=== PATIENT | male | born 1955 | race Caucasian/White ===

== ENCOUNTER 2024-05-25 10:00 | Outpatient (CLI) | payer MEDICARE, BC, SELFPAY | END 2024-05-25 10:01 | disposition home or self-care (01) | LOC: AMB 05-28 01:16 | PROVIDERS: PCP Surgery; Visit Provider Emergency Medicine | DX: R07.89 Other chest pain (principal) | CPT/HCPCS: A0425; A0427 ==

== ENCOUNTER 2024-05-25 10:31 | Inpatient (IN) | payer MEDICARE, BC, SELFPAY ==
[2024-05-25] VITALS (23 sets, daily range): BP systolic 91–115; BP diastolic 60–79; PULSE 70–107; RESP 18–24; TEMP 36.5–38.2; O2SAT 85–98; BMI 31.9; BMI 31.4
--- NOTE | 2024-05-25 10:44 | ED_ITS ---
HPI - General Adult General Date Seen: 05/25/24 Chief complaint: Shortness of Breath/Dyspnea Stated complaint: Fever, chills Time Seen by Provider: 05/25/24 10:43 History of Present Illness HPI narrative: 69-year-old male presenting to the ER today by EMS. 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 Rhythm this morning woke up feeling short of breath and feeling chilled. Her he had a temperature of 101?. She he took 4 baby aspirin prior to arrival. He he was feeling short of breath so his turned on the heater but it did not help. Therefore his family called 911. Sats were 88% on room air and so he was placed on 4 L nasal cannula with improvement in oxygen sats. Blood glucose per EMS was 104. History from the patient and his is similar. He was basically normal lately. He does have some chronic shortness of breath from COPD and uses a controller inhaler twice a day. He has a rescue inhaler (albuterol) that he rarely uses. He does smoke. He has not been having any new shortness of breath or new cough lately. He was a bit constipated yesterday so took a Dulcolax. He is not having any abdominal pain. He woke at about 5:00 a.m. this morning and had significant chills despite having the covers. He had his turned up the heat and house temperature came up to 77 but he was still very chilled and shaking. He was able to get out of bed. He was sitting in his computer chair but was bent over, chilled, and shaking. He was feeling very weak. He is also more short of breath this morning. He is not really coughing. No nausea. No chest pain. No abdominal pain. Urination has been normal. No rash. No known sick exposures After the patient's chest x-ray is obtained we discussed the abnormal findings that he recalls that he had ?mac? that he follows with for years with an infectious disease doctor through the [facility]. Had been on some antibiotics for a couple of years but they were not helping so he stopped them several years ago. In records from the [facility] care link his primary care provider is Dr. reyes at the [facility] system. Notes indicate that he had a pulmonary nodule with MAC infection. Also that he has a history of peripheral artery disease with known abdominal aortic aneurysm. Had been following with vascular surgery to survey all this but stopped a couple of years ago. Related Data Home Medications ?Medication ?Instructions ?Recorded ?Confirmed albuterol sulfate 90 mcg/actuation inhalation 05/25/24 aerosol inhaler aspirin 05/25/24 budesonide-formoterol HFA 160 inhalation 05/25/24 mcg-4.5 mcg/actuation aerosol inhaler duloxetine 30 mg capsule,delayed 30 mg PO DAILY 05/25/24 05/25/24 release duloxetine 60 mg capsule,delayed 60 mg PO DAILY 05/25/24 05/25/24 release losartan 50 mg-hydrochlorothiazide 1 tab PO DAILY 05/25/24 05/25/24 12.5 mg tablet metoprolol succinate 50 mg 50 mg PO DAILY 05/25/24 05/25/24 tablet,extended release 24 hr multivitamin 05/25/24 psyllium 05/25/24 rosuvastatin 5 mg tablet 5 mg PO DAILY 05/25/24 05/25/24 sumatriptan 05/25/24 Allergies Allergy/AdvReac Type Severity Reaction Status Date / Time pregabalin [From Lyrica] Allergy Mild Verified 05/25/24 10:44 [facility] Social History Smoking Status: Current every day smoker What tobacco products do you use: cigarettes Non-prescribed substance use: denies use Exam Narrative: Exam Narrative: Constitutional: Appears well-developed and well-nourished. Alert. Conversant. Feels warm to the touch. Conversant. HENT: Head: Atraumatic. Nose: Nose normal. Mouth/Throat: Oral mucosa is clear and moist. no trismus. Pharynx normal. Tonsils symmetric. No tonsillar enlargement, erythema, or exudate. Eyes: Conjunctivae normal. EOM normal. Pupils equal, round, and reactive to light. No scleral icterus. Neck: Normal range of motion. Neck supple. No tracheal deviation present. No JVD Cardiovascular: Tachycardic, regular rhythm. No gallop. No friction rub. No murmur heard. Symmetric radial artery pulses Pulmonary/Chest: Effort normal. No stridor. No respiratory distress. Bibasilar rhonchi. Also bilateral subtle wheezes.. No tenderness. Abdominal: Soft. Bowel sounds normal. No distension. No mass. No tenderness. No rebound. No guarding. Long midline abdominal incision from distant history of retroperitoneal lymph node dissection (had testicular cancer but it turns out he did not have any lymphatic involvement) Musculoskeletal: RUE: Normal range of motion. No tenderness. No deformity LUE: Normal range of motion. No tenderness. No deformity RLE: Normal range of motion. Subtle trace chronic edema. No tenderness. No deformity LLE: Normal range of motion. Subtle trace chronic edema. No tenderness. No deformity Neurological: Alert and oriented to person, place, and time. Normal strength. CN II-VII intact. No sensory deficit. GCS eye subscore is 4. GCS verbal subscore is 5. GCS motor subscore is 6. Normal coordination Skin: Skin is warm and dry. No rash noted. No pallor. Normal capillary refill. Psychiatric: Normal mood. Normal affect. Const: Vital Signs, click to edit/add: Vital Signs - 24 hr 05/25/24 10:39 05/25/24 11:35 05/25/24 11:36 Temperature 100.8 F H Pulse Rate 104 H 104 H Pulse Rate [Pulse Oximeter] 107 H Respiratory Rate 20 Blood Pressure 94/71 Blood Pressure [Ri ght Upper Arm] 115/79 Pulse Oximetry 90 98 98 Oxygen Delivery Me thod Nasal Cannula Oxygen Flow Rate 2 05/25/24 11:45 05/25/24 12:00 05/25/24 12:02 Temperature Pulse Rate 107 H 103 H 103 H Pulse Rate [Pulse Oximeter] Respiratory Rate Blood Pressure 100/70 Blood Pressure [Ri ght Upper Arm] Pulse Oximetry 89 91 91 Oxygen Delivery Me thod Oxygen Flow Rate 05/25/24 12:15 05/25/24 12:29 05/25/24 12:30 Temperature Pulse Rate 101 H 99 Pulse Rate [Pulse Oximeter] Respiratory Rate Blood Pressure 91/68 96/66 Blood Pressure [Ri ght Upper Arm] Pulse Oximetry 91 91 Oxygen Delivery Me thod Oxygen Flow Rate 05/25/24 12:31 05/25/24 12:32 05/25/24 12:32 Temperature 98.7 F Pulse Rate 100 100 Pulse Rate [Pulse Oximeter] 99 Respiratory Rate 18 Blood Pressure 103/67 Blood Pressure [Ri ght Upper Arm] 96/66 Pulse Oximetry 91 91 91 Oxygen Delivery Me thod Room Air Oxygen Flow Rate 05/25/24 12:46 05/25/24 12:47 Temperature Pulse Rate 97 99 Pulse Rate [Pulse Oximeter] Respiratory Rate Blood Pressure 94/62 Blood Pressure [Ri ght Upper Arm] Pulse Oximetry 90 90 Oxygen Delivery Me thod Oxygen Flow Rate 2 2 Course Vital Signs Vital signs: Initial Vital Signs Respiratory Effort Normal, SOB at Exertion 05/25/24 10:38 Respiratory Depth Normal 05/25/24 10:38 Vital Signs Temperature 100.8 F H 05/25/24 10:39 Pulse Rate 107 H 05/25/24 10:39 Respiratory Rate 20 05/25/24 10:39 Blood Pressure 115/79 05/25/24 10:39 Pulse Oximetry 90 05/25/24 10:39 Oxygen Delivery Method Nasal Cannula 05/25/24 10:39 Temperature 98.7 F 05/25/24 12:32 Pulse Rate 99 05/25/24 12:47 Respiratory Rate 18 05/25/24 12:32 Blood Pressure 94/62 05/25/24 12:47 Pulse Oximetry 90 05/25/24 12:47 Oxygen Delivery Method Room Air 05/25/24 12:32 Oxygen Flow Rate 2 05/25/24 12:47 Medications Administered Medications: Discontinued Medications Generic Name Dose Route Start Last Admin Trade Name Raquel PRN Reason Stop Dose Admin Acetaminophen 1,000 mg 05/25/24 11:18 05/25/24 11:26 Acetaminophen 500 Mg Tablet PO 05/25/24 11:19 1,000 mg ONCE ONE Administration Albuterol/Ipratropium 1 neb 05/25/24 11:18 05/25/24 11:26 Iprat-Albut 0.5-2.5 Mg/3 Ml Neb IH 05/25/24 11:19 1 neb ONCE ONE Administration Prednisone 40 mg 05/25/24 10:56 05/25/24 11:26 Prednisone 20 Mg Tablet PO 05/25/24 10:57 40 mg ONCE ONE Administration Medical Decision Making [facility] Narrative Medical decision making narrative: 69-year-old male with a complex past history including COPD, ongoing tobacco use, history of MAC pulmonary infection, peripheral artery disease, of the abdomen aortic aneurysm, hypertension, dyslipidemia. He is brought to the ER this morning by EMS because he developed fever, chills, body aches, generalized weakness and shortness or breath at about 5:00 a.m. this morning. 1. Infectious disease. Does have fever and chills consistent with infection and has a fever of 100.8. With this he is tachycardic with pulse of 108 at triage. Therefore does meet criteria for SIRS and sepsis. We undertook an evaluation to determine the source of the infection. COVID/influenza are negative. Chest x- ray does show bilateral infiltrates that I think could suggest a acute community-acquired pneumonia. Also some abnormalities in the upper lobes that her to our which are of unclear significance but may relate to his prior chronic MAC infection. Labs show a white count of 18. Fortunately venous lactic is normal. Blood pressure remains in the normal range. No evidence for septic shock. Typically in this situation we would administer IV saline as a fluid bolus. However given current national shortage we were trying to conserve fluids as much as possible. Therefore we had the patient aggressively push p.o. fluids. Admitting hospitalist requested that I give him a bolus of D5 normal saline, of which we have an adequate supply. I think this is reasonable. Rocephin and Zithromax administered here in the ER. 2. Pulmonary. In addition to pneumonia, he also has some wheezing on his lung exam. Suspect this may be his COPD and possibly an acute exacerbation. Treated with 40 mg oral says prednisone and DuoNebs. Despite treatments he does remain hypoxic with sats in the high 80s on room air. He is doing well with 2 L nasal cannula. At this point not showing signs for respiratory distress or fatigue requiring BiPAP or endotracheal intubation. Mental status is normal and he is well appearing so I do not think he needs VBG or pCO2 measurement. 3. Cardiac. EKG shows sinus tachycardia with nonspecific changes. Screening troponin is undetectable. With a clear alternative explanation for shortness of breath I do not think he needs further troponin rule out. 4. Renal. Mild hyponatremia with a sodium 134. Other electrolytes normal. BUN 20 and creatinine 0.9. 5. Endocrine. Blood sugar normal. Lab Data Labs: Lab Results 05/25/24 Range/Units 11:11 WBC 18.96 H (4.50-11.00) K/uL RBC 5.16 (4.30-5.90) m/uL Hgb 17.4 (13.5-17.5) gm/dL Hct 50.8 (37.0-53.0) % MCV 98 (80-100) fL MCH 34 (26-34) pg MCHC 34 (32-36) gm/dL RDW Coeff of Yelena 13.3 (11.5-15.5) % Plt Count 180 (140-440) K/uL Neut % (Auto) 90.0 H (42.0-72.0) % Lymph % (Auto) 3.3 L (20-44) % [place] % (Auto) 6.0 (0.0-11.0) % Eos % (Auto) 0.1 (0.0-7.0) % Baso % (Auto) 0.3 (0.0-3.0) % Neut # (Auto) 17.10 H (1.7-7.0) K/uL Lymph # (Auto) 0.60 L (0.90-2.90) K/uL [place] # (Auto) 1.10 H (0.00-0.90) K/UL Eos # (Auto) 0.00 (0.00-0.50) K/uL Baso # (Auto) 0.10 (0.00-0.30) K/uL Abs Immat Gran (auto) 0.10 (0.00-0.30) K/uL Imm/Tot Granulo (auto) 0.3 % Sodium 134 L (135-149) mmol/L Potassium 3.8 (3.6-5.1) mmol/L Chloride 103 (96-114) mmol/L Carbon Dioxide 23 (20-32) mmol/L Anion Gap 8 (7-15) mEq/L BUN 20 (7-30) mg/dL Creatinine 0.9 (0.5-1.5) mg/dL Estimated Creat Clear 68.40 Estimated GFR 93 ml/min Glucose 111 (60-115) mg/dL Lactate 1.6 (0.5-1.9) mmol/L Calcium 9.5 (8.4-10.6) mg/dL SARS-CoV-2 (PCR) Negative SARS-CoV-2 (Negative) Influenza Type A (PCR) Negative PCR FLU A (Negative) Influenza Type B (PCR) Negative PCR FLU B (Negative) POC Troponin I 0.00 L (0.01-0.04) ng/ml Imaging Data Chest x-ray: Attestation: I have reviewed the pertinent imaging results. My impression: Right upper lobe opacity, possibly fluid in the minor fissure or an infiltrate. Left lower lobe pleural effusion. Possible left lower lobe infiltrate. Possible right lower lobe infiltrate. Radiologist's impression: FINDINGS: Severe underlying reticular opacities in both lungs. Irregular nodular and bandlike thickening along the medial right upper lobe. Favor pleural origin, probably with a large apical bulla. There is a 0.8 centimeter nodule in the right lower lobe. Small bilateral pleural effusions versus chronic pleural thickening. No pneumothorax. Heart size normal. Extensive surgical clips in the central upper abdomen/retroperitoneum. Large stool burden incidentally noted in the upper abdomen. No acute appearing osseous findings. IMPRESSION: Bilateral abnormal lungs and pleura. Details above. Comparison to available prior exams would be extremely helpful as many of the findings could be both acute or chronic. Infection, interstitial / smoking related lung disease, environmental exposures, and malignancy all should be considered. ECG Data Attestation: I personally reviewed and interpreted this ECG as follows: Interpretation: Sinus tachycardia Rate: 108 DE: 168 QRS axis: normal ST segment/T wave: Nonspeciffic T wave flattening. No ST segment elevation or depression. QTc: 555 Discharge Plan Discharge Clinical Impression: Pneumonia, Acute exacerbation of chronic obstructive pulmonary disease, Hypoxia Prescriptions: No Action metoprolol succinate 50 mg tablet extended release 24 hr 50 mg PO DAILY sumatriptan albuterol sulfate 90 mcg/actuation HFA aerosol inhaler inhalation losartan-hydrochlorothiazide 50-12.5 mg tablet 1 tab PO DAILY rosuvastatin 5 mg tablet 5 mg PO DAILY duloxetine 30 mg capsule,delayed release(DR/EC) 30 mg PO DAILY duloxetine 60 mg capsule,delayed release(DR/EC) 60 mg PO DAILY budesonide-formoterol 160-4.5 mcg/actuation HFA aerosol inhaler inhalation multivitamin psyllium aspirin Follow Up/Referrals: Jt Reyes MD [Primary Care Provider] -
--- NOTE | 2024-05-25 10:46 | CRLHL7_ITS ---
For Patients: As a result of the Cures Act, medical imaging exams and procedure reports are released immediately into your electronic medical record. You may view this report before your referring provider. If you have questions, please contact your health care provider. INDICATION: Short of breath and fever COMPARISON: None. TECHNIQUE: PA and lateral 2 view chest. FINDINGS: Severe underlying reticular opacities in both lungs. Irregular nodular and bandlike thickening along the medial right upper lobe. Favor pleural origin, probably with a large apical bulla. There is a 0.8 centimeter nodule in the right lower lobe. Small bilateral pleural effusions versus chronic pleural thickening. No pneumothorax. Heart size normal. Extensive surgical clips in the central upper abdomen/retroperitoneum. Large stool burden incidentally noted in the upper abdomen. No acute appearing osseous findings. IMPRESSION: Bilateral abnormal lungs and pleura. Details above. Comparison to available prior exams would be extremely helpful as many of the findings could be both acute or chronic. Infection, interstitial / smoking related lung disease, environmental exposures, and malignancy all should be considered. Dictated by Shantelle Wilson MD @ 05/25/2024 12:10:09 PM (Electronically Signed)
[2024-05-25 11:21] LABS: Lactate Sepsis w/Reflex* 1.6 mmol/L (0.5-1.9)
[2024-05-25 11:24] LABS: Basophils Percent Auto 0.3 % (0.0-3.0); Eosinophils Percent Auto 0.1 % (0.0-7.0); Hematocrit 50.8 % (37.0-53.0); Hemoglobin* 17.4 gm/dL (13.5-17.5); Immature Granulocytes Pct Auto 0.3 %; Lymphocytes Percent Auto 3.3 % (20-44); Mean Corpuscular HGB Conc 34 gm/dL (32-36); Mean Corpuscular Hemoglobin 34 pg (26-34); Mean Corpuscular Volume 98 fL (80-100); Platelet Count* 180 K/uL (140-440); RDW Coefficient of Variation % 13.3 % (11.5-15.5); Red Blood Count 5.16 m/uL (4.30-5.90); White Blood Count* 18.96 K/uL (4.50-11.00)
[2024-05-25] MEDS: ACETAMINOPHEN 500 MG TABLET 1000 MG PO ×2 (11:26→17:51)
[2024-05-25] MEDS: IPRAT-ALBUT 0.5-2.5 MG/3 ML NEB 1 NEB IH ×3 (11:26→21:10)
[2024-05-25] MEDS: predniSONE 20 MG TABLET 40 MG PO (11:26)
[2024-05-25 11:34] LABS: Slide Review Reflex No
[2024-05-25 11:56] LABS: Chloride* 103 mmol/L (96-114); Potassium* 3.8 mmol/L (3.6-5.1); Sodium* 134 mmol/L (135-149)
[2024-05-25 11:59] LABS: Anion Gap 8 mEq/L (7-15); Blood Urea Nitrogen* 20 mg/dL (7-30); Calcium* 9.5 mg/dL (8.4-10.6); Carbon Dioxide* 23 mmol/L (20-32); Creatinine* 0.9 mg/dL (0.5-1.5); Estimated Glomerular Filt Rate 93 ml/min; Glucose* 111 mg/dL (60-115)
[2024-05-25 12:01] LABS: PCR FLU A Negative PCR FLU A (Negative); PCR FLU B Negative PCR FLU B (Negative); SARS PCR* Negative SARS-CoV-2 (Negative)
[2024-05-25] MEDS: AZITHROMYCIN 250 MG TABLET 500 MG PO (13:03)
[2024-05-25] MEDS: cefTRIAXone 1 GM in 0.9 % SODIUM CHLORIDE Mini-bag 100 ML IVPB (13:04)
--- NOTE | 2024-05-25 13:18 | P.IMHP_ITS ---
Hospitalist- H&P: HPI History of Present Illness Date Seen: 05/25/24 Chief complaint: Fever, chills Narrative: Trevin Kate is a 69 year old male with significant past medical history including COPD, JIMY poorly managed, history of MAC not fully treated, pulmonary nodules, active 1.5-2 pack per day smoker, heart failure, hypertension, hyperlipidemia, CAD, history of cardiac arrest, migraine headaches, chronic neck pain, fibromyalgia is admitted to medical floor from the ED with sepsis in setting of suspected multilobar pneumonia. Patient reports awakening this morning with significantly increased shortness of breath. Denies new or worsening cough other than his chronic cough. [place] chilled this morning but did not take his temperature. Denies new or worsening chest pain. Has a chronic daily headache. Denies dizziness or lightheadedness. Was nauseous in the ambulance on the way over but this has resolved. Denies recent nausea or vomiting. In the ED, patient noted to be febrile, tachycardic, systolic blood pressures less than 100, O2 saturations 88-89% which is normal for him as of late. Started on IV ceftriaxone and azithromycin. Due to national shortage of IVF, did not receive fluids in the ED. Tobacco use 1.5-2 ppd. denies alcohol use for the past 40 years. Primary care provider is Dr. Stinson. Wishes to be DNR/DNI. Review of Systems Narrative: REVIEW OF SYSTEMS: Complete review of systems performed and negative unless otherwise stated in HPI or below. [facility] Medical History Cardiac arrest ?I46.9 - Cardiac arrest, cause unspecified (ICD-10) Pulmonary nodule ?R91.1 - Solitary pulmonary nodule (ICD-10) Peripheral arterial disease ?I73.9 - Peripheral vascular disease, unspecified (ICD-10) JIMY (obstructive sleep apnea) ?G47.33 - Obstructive sleep apnea (adult) (pediatric) (ICD-10) Thoracic back pain ?M54.6 - Pain in thoracic spine (ICD-10) Fibromyalgia ?M79.7 - Fibromyalgia (ICD-10) Migraine ?G43.909 - Migraine, unspecified, not intractable, without status migrainosus (ICD-10) Mycobacterium avium complex ?A31.0 - Pulmonary mycobacterial infection (ICD-10) Testicular cancer ?C62.90 - Malignant neoplasm of unspecified testis, unspecified whether descended or undescended (ICD-10) Tobacco abuse ?Z72.0 - Tobacco use (ICD-10) MDD (major depressive disorder) ?F32.9 - Major depressive disorder, single episode, unspecified (ICD-10) COPD (chronic obstructive pulmonary disease) ?J44.9 - Chronic obstructive pulmonary disease, unspecified (ICD-10) Heart failure with preserved ejection fraction ?I50.30 - Unspecified diastolic (congestive) heart failure (ICD-10) Abdominal aneurysm ?I71.40 - Abdominal aortic aneurysm, without rupture, unspecified (ICD-10) CAD (coronary artery disease) ?I25.10 - Atherosclerotic heart disease of [place] coronary artery without angina pectoris (ICD-10) Hypertension ?I10 - Essential (primary) hypertension (ICD-10) Hyperlipidemia ?E78.5 - Hyperlipidemia, unspecified (ICD-10) Social History Smoking Status: Current every day smoker What tobacco products do you use: cigarettes Non-prescribed substance use: denies use Meds Home Medications and Allergies Home Medications ?Medication ?Instructions ?Recorded ?Confirmed ?Type albuterol sulfate 90 mcg/actuation 1 - 2 puff inhalation Q4H PRN 05/25/24 05/25/24 History aerosol inhaler aspirin 81 mg tablet,delayed 81 mg PO DAILY 05/25/24 05/25/24 History release budesonide-formoterol HFA 160 2 puff inhalation BID 05/25/24 05/25/24 History mcg-4.5 mcg/actuation aerosol inhaler duloxetine 30 mg capsule,delayed 30 mg PO DAILY 05/25/24 05/25/24 History release duloxetine 60 mg capsule,delayed 60 mg PO DAILY 05/25/24 05/25/24 History release losartan 50 mg-hydrochlorothiazide 1 tab PO DAILY 05/25/24 05/25/24 History 12.5 mg tablet metoprolol succinate 50 mg 50 mg PO DAILY 05/25/24 05/25/24 History tablet,extended release 24 hr multivitamin (Daily Multi-Vitamin 1 tab PO DAILY 05/25/24 05/25/24 History tablet) psyllium 1 tbsp PO DAILY 05/25/24 05/25/24 History rosuvastatin 5 mg tablet 5 mg PO DAILY 05/25/24 05/25/24 History sumatriptan succinate 100 mg See Rx Instructions PO .COMPLEX 05/25/24 05/25/24 History tablet (Imitrex) Allergies Allergy/AdvReac Type Severity Reaction Status Date / Time pregabalin [From Lyrica] Allergy Mild Verified 05/25/24 10:44 Exam Narrative: Exam Narrative: PHYSICAL EXAM General: Pleasant, smiling, joking with staff, conversant, otherwise appears in NAD HEENT: Normocephalic, atraumatic, sclera white, EOMI, oral mucosa moist Cardiovascular: RRR, S1S2. No pitting edema Pulmonary: Diffusely diminished, currently no expiratory wheezes, no dyspnea on 1 L Abdominal: Soft, nondistended, NTTP Neurological: Alert, answering questions appropriately, cranial nerves intact, no focal findings Extremities: No gross joint deformity or swelling. AROMI. Neurovascularly intact Skin: Warm, dry. Const: Vital Signs, click to edit/add: Vital Signs - 24 hr 05/25/24 10:39 05/25/24 11:35 05/25/24 11:36 Temperature 100.8 F H Pulse Rate 104 H 104 H Pulse Rate [Pulse Oximeter] 107 H Respiratory Rate 20 Blood Pressure 94/71 Blood Pressure [Ri ght Upper Arm] 115/79 Pulse Oximetry 90 98 98 Oxygen Delivery Me thod Nasal Cannula Oxygen Flow Rate 2 05/25/24 11:45 05/25/24 12:00 05/25/24 12:02 Temperature Pulse Rate 107 H 103 H 103 H Pulse Rate [Pulse Oximeter] Respiratory Rate Blood Pressure 100/70 Blood Pressure [Ri ght Upper Arm] Pulse Oximetry 89 91 91 Oxygen Delivery Me thod Oxygen Flow Rate 05/25/24 12:15 05/25/24 12:29 05/25/24 12:30 Temperature Pulse Rate 101 H 99 Pulse Rate [Pulse Oximeter] Respiratory Rate Blood Pressure 91/68 96/66 Blood Pressure [Ri ght Upper Arm] Pulse Oximetry 91 91 Oxygen Delivery Me thod Oxygen Flow Rate 05/25/24 12:31 05/25/24 12:32 05/25/24 12:32 Temperature 98.7 F Pulse Rate 100 100 Pulse Rate [Pulse Oximeter] 99 Respiratory Rate 18 Blood Pressure 103/67 Blood Pressure [Ri ght Upper Arm] 96/66 Pulse Oximetry 91 91 91 Oxygen Delivery Me thod Room Air Oxygen Flow Rate 05/25/24 12:46 05/25/24 12:47 Temperature Pulse Rate 97 99 Pulse Rate [Pulse Oximeter] Respiratory Rate Blood Pressure 94/62 Blood Pressure [Ri ght Upper Arm] Pulse Oximetry 90 90 Oxygen Delivery Me thod Oxygen Flow Rate 2 2 Hospitalist - H&P: Result Labs Labs: Short CBC 05/25/24 Range/Units 11:11 WBC 18.96 H (4.50-11.00) K/uL Hgb 17.4 (13.5-17.5) gm/dL Hct 50.8 (37.0-53.0) % Plt Count 180 (140-440) K/uL BMP 05/25/24 11:11 Sodium 134 L Potassium 3.8 Chloride 103 Carbon Dioxide 23 BUN 20 Creatinine 0.9 Glucose 111 Calcium 9.5 ECG Attestation: I personally reviewed and interpreted this ECG as follows: Interpretation: Sinus tachycardia, ventricular rate 108, QTC 431 Imaging Chest x-ray: Attestation: I have reviewed the pertinent imaging results. Radiologist's impression: Severe underlying reticular opacities in both lungs. Irregular nodular and bandlike thickening along the medial right upper lobe. Favor pleural origin, probably with a large apical bulla. There is a 0.8 centimeter nodule in the right lower lobe. Small bilateral pleural effusions versus chronic pleural thickening. No pneumothorax. Heart size normal. Extensive surgical clips in the central upper abdomen/retroperitoneum. Large stool burden incidentally noted in the upper abdomen. No acute appearing osseous findings. IMPRESSION: Bilateral abnormal lungs and pleura. Details above. Comparison to available prior exams would be extremely helpful as many of the findings could be both acute or chronic. Infection, interstitial / smoking related lung disease, environmental exposures, and malignancy all should be considered. Assessment and Plan Assessment and plan (1) Sepsis: Problem comment: Fever 100.8?, tachycardic to 107, SBP 91-96, WBC 18.96, lactate 1.6 Multilobar community-acquired pneumonia Started on IV ceftriaxone and azithromycin 1 L D5 half-normal saline IVF in setting of nationwide shortage. Encourage oral electrolyte drinks BC pending, UA ordered Status: Acute (2) Acute hypoxic respiratory failure: Problem comment: ED reports oxygen saturation <88% per EMR, 89% in ED In setting of suspected community acquired pneumonia, history of COPD, unmanaged JIMY Continue oxygen supplementation, maintaining saturations 88-92%, weaning as able RT for pulmonary support Of note, EMR states patient checks his O2 sats at home with noted desaturations into the 80s with activity, normal at rest is 88% of late Status: Acute (3) Pneumonia: Problem comment: CXR shows severe underlying reticular opacities in both lungs, small bilateral pleural effusions versus chronic pleural thickening Continue ceftriaxone and azithromycin Procalcitonin, CRP, strep pneumo/Legionella ordered Consider further imaging with CT if new or worsening symptoms or no improvement History of cavitary MAC, followed by pulmonology, last visit 08/2021. Incomplete triple therapy in 2019 Known chronic pulmonary nodules Outpatient follow-up with PCP for further investigation of CXR findings is recommended Status: Acute (4) COPD (chronic obstructive pulmonary disease): Problem comment: In setting of active smoker, 1.5-2 ppd, poorly managed JIMY, noncompliant with CPAP Normal O2 saturation for him lately 88% at rest DuoNebs q.i.d., albuterol nebs p.r.n., continue home inhalers Oxygen supplementation, 88-92% Prednisone 40 mg daily Continue ceftriaxone and azithromycin RT for pulmonary support, IS Status: Acute (5) Heart failure with preserved ejection fraction: Problem comment: Echocardiogram 10/2018, Final Impressions: 1. Technically limited exam. 2. Entire anterior septum and mid septum segment are abnormal. LV EF = 40-45% 3. Moderately enlarged right atrium. 4. Grade 1 pattern of LV diastolic filling. 5. Right ventricular cavity size is moderately enlarged, global systolic RV function is normal. 6. The ascending aorta is dilated with a maximal diameter of 4.4 cm. 7. The aortic sinus is dilated with a maximal diameter of 4.3 cm. This EF of 40-45% does not fit criteria of preserved ejection fraction as documented in his EMR BNP ordered Consider repeat echo if new or worsening symptoms or no improvement Status: Acute (6) Hyperlipidemia: Problem comment: Continue statin Status: Acute (7) Hypertension: Problem comment: Continue home medications At home, checks his pulse and oxygen level regularly, desaturates into 80s with activity Status: Acute (8) CAD (coronary artery disease): Problem comment: Continue ASA, antihypertensives, statin Status: Acute (9) MDD (major depressive disorder): Problem comment: per EMR, History of depression and anxiety that is been poorly treated in the past. He is currently on 90 mg of Cymbalta daily. He has not wanted to do referral to psychology or see a psychiatrist. He also has not wanted to make any other changes to his medication. That has seemed to help a little but not very much. Continue duloxetine Status: Acute (10) Tobacco abuse: Problem comment: 1.5-2 ppd Has not been interested in quitting despite encouragement Status: Acute Total Time Spent Total Time Spent: Total time spent caring for the patient today was 75 minutes. This includes time spent for the visit reviewing the chart, time spent during the visit, time spent after the visit and documentation and planning in coordination of care.
[2024-05-25 14:08] LABS: Magnesium* 2.1 mg/dL (1.5-2.6)
[2024-05-25] MEDS: 5 % DEX/0.45 SOD CHL+KCL20 mEq 1,000 ML 125 ML IV (14:21)
--- NOTE | 2024-05-25 14:23 | RESP.RT ---
Respiratory assessment. Patient on 2 lpm nasal cannula with spO2 90-92%. RR 20, BS bilateral upper and lower lobes with expiratory wheezing. Instructed on use of Incentive Spirometer. Patient achieving 2500 ml.
[2024-05-25 14:25] LABS: Procalcitonin* 0.13 ng/mL (<0.50)
[2024-05-25 15:36] LABS: NT Pro B Type NatriureticPept* 644 pg/mL
[2024-05-25] MEDS: NICOTINE 21 MG PATCH 1 PATCH TRANSDERMA (16:12)
--- NOTE | 2024-05-25 19:07 | PC.NURSE ---
End of shift: patient alert and oriented x4. VSS, SOB w/exertion, 2.5 L NC sating at 93%. Patient tolerating a reg. diet. Patient has a 20G IV in L, AC running D5%Sod Chl+KCL.
[2024-05-25] MEDS: SODIUM CHLORIDE 0.9 % (FLUSH) 10 ML SYRINGE 5 ML IVF (21:10)
[2024-05-25] MEDS: ENOXAPARIN 30 MG/0.3ML INJ SUBCUT (21:10)
[2024-05-25] MEDS: ROSUVASTATIN CALCIUM 10 MG TABLET 5 MG PO (21:10)
[2024-05-26] VITALS (10 sets, daily range): BP systolic 97–121; BP diastolic 62–77; PULSE 67–89; RESP 20–24; TEMP 36.2–37; O2SAT 87–89
[2024-05-26] MEDS: ACETAMINOPHEN 500 MG TABLET 1000 MG PO ×2 (02:33→21:12)
--- NOTE | 2024-05-26 06:07 | PC.NURSE ---
[id number] Pt slept well during night. On RA since approx 2100 05/25/24, maintaining >88% while awake, dips to 85-89% while sleeping. intermittent productive cough, thick yellow phlegm, pt states this is his baseline. generalized pain during the night due to uncomfortable bed prn tylenol administered with relief. acknowledged SOB at rest but when asked if its worse, the same or better then baseline pt replied same. SOB with activity.
[2024-05-26 06:33] LABS: Hematocrit 48.1 % (37.0-53.0); Hemoglobin* 16.2 gm/dL (13.5-17.5); Mean Corpuscular HGB Conc 34 gm/dL (32-36); Mean Corpuscular Hemoglobin 34 pg (26-34); Mean Corpuscular Volume 100 fL (80-100); Platelet Count* 160 K/uL (140-440); Red Blood Count 4.79 m/uL (4.30-5.90); White Blood Count* 12.79 K/uL (4.50-11.00)
[2024-05-26 06:34] LABS: Slide Review Reflex No
[2024-05-26 06:57] LABS: Chloride* 104 mmol/L (96-114)
[2024-05-26 06:58] LABS: Potassium* 3.6 mmol/L (3.6-5.1); Sodium* 136 mmol/L (135-149)
[2024-05-26 07:00] LABS: Creatinine* 0.9 mg/dL (0.5-1.5); Estimated Glomerular Filt Rate 93 ml/min
[2024-05-26 07:01] LABS: Anion Gap 6 mEq/L (7-15); Blood Urea Nitrogen* 28 mg/dL (7-30); Carbon Dioxide* 26 mmol/L (20-32); Glucose* 111 mg/dL (60-115)
[2024-05-26 07:02] LABS: Calcium* 8.8 mg/dL (8.4-10.6)
[2024-05-26 07:04] LABS: C Reactive Protein* 8.9 mg/dL (0.5-1.0)
--- NOTE | 2024-05-26 08:11 | CRLHL7_ITS ---
For Patients: As a result of the Century Cures Act, medical imaging exams and procedure reports are released immediately into your electronic medical record. You may view this report before your referring provider. If you have questions, please contact your health care provider. Indication: Pulmonary nodules, new pneumonia, known history of MAC infection and cavitary mass in the right upper lobe Technique: Volumetric multidetector CT images of the chest were obtained after the administration of IV contrast. 75 cc Isovue 370 low osmolar intravenous contrast Comparison: None available. Findings: The thoracic inlet and thyroid gland are unremarkable. The thoracic aorta is nonaneurysmal. There is no central filling defect to suggest pulmonary embolism. There are calcified mediastinal and hilar lymph nodes. There is no axillary adenopathy. There is mild to moderate central bronchial thickening. There is moderate peripherally calcified cavitary lesion within the medial right lung apex consistent with history of known atypical mycobacterial infection with moderate chronic atelectasis and pleural calcification. There is moderate associated emphysematous change with peripheral honeycombing in the lingula inferior left upper and left lower lobes. There is basilar atelectasis and parenchymal scarring. Developing edema and/or infiltrate within the central right lung base may be difficult to exclude. Multiple calcified pulmonary nodules are seen within the predominantly right greater than left elliot thoraces commensurate with history of MAC. The partially visualized upper abdominal viscera are within normal limits. The thoracic vertebral body heights remain intact alignment without significant degenerative change or acute osseous abnormality. Impression: Demonstration of extensive sequela of prior atypical mycobacterial infection consistent with history of known MAC with cavitary lesion in the right upper lobe, scattered calcified pulmonary nodules, pleural thickening and parenchymal scarring predominantly within the right greater than left lower greater than upper lobes with questionable mild interlobular septal prominence and ground-glass in the right lung base likely representing chronic changes a subtle acute infiltrate may be difficult to exclude. No evidence of pulmonary embolus. No evidence of obvious acute typical consolidation. Please note that all CT scans at this facility use dose modulation, iterative reconstruction, and/or weight-based dosing when appropriate to reduce radiation dose to as low as reasonably achievable. Dictated by Deni Muniz MD @ 05/26/2024 9:36:45 AM (Electronically Signed)
[2024-05-26] MEDS: cefTRIAXone 1 GM in 0.9 % SODIUM CHLORIDE Mini-bag 100 ML IVPB (09:18)
[2024-05-26] MEDS: METOPROLOL SUCCINATE (XL) 50 MG TAB PO (09:19)
[2024-05-26] MEDS: ASPIRIN 81 MG TABLET EC PO (09:19)
[2024-05-26] MEDS: LOSARTAN POTASSIUM 50 MG TABLET PO (09:19)
[2024-05-26] MEDS: hydroCHLOROthiazide 12.5 MG CAPSULE PO (09:19)
[2024-05-26] MEDS: predniSONE 20 MG TABLET 40 MG PO (09:19)
[2024-05-26] MEDS: DULOXETINE 30 MG CAPSULE DR 90 MG PO (09:19)
[2024-05-26] MEDS: IPRAT-ALBUT 0.5-2.5 MG/3 ML NEB 1 NEB IH ×2 (09:20→21:30)
[2024-05-26] MEDS: SODIUM CHLORIDE 0.9 % (FLUSH) 10 ML SYRINGE 5 ML IVF ×2 (09:20→21:27)
[2024-05-26] MEDS: AZITHROMYCIN 250 MG TABLET 500 MG PO (09:43)
[2024-05-26] MEDS: Budesonide-Formoterol 160-4.5 mcg/actuation HFA aerosol inhaler IH ×2 (12:18→21:21)
--- NOTE | 2024-05-26 13:28 | P.IMPN_ITS ---
Progress Note: A&P Assessment and plan (1) Sepsis: Problem details: rec'd oral and IV fluid, we chose 1L of D5 1/2NS, due to national shortage of IVF. tachycardia/fever have resolved. BP is still soft but MAP is >65. BC NGTD likely resolving Status: Acute (2) Acute hypoxic respiratory failure: Problem details: now weaned from oxygen; lives in the 88-92% on RA ED reports oxygen saturation <88% per EMR, 89% in ED In setting of suspected community acquired pneumonia, history of COPD, unmanaged JIMY Continue oxygen supplementation, maintaining saturations 88-92%, weaning as able RT for pulmonary support Of note, EMR states patient checks his O2 sats at home with noted desaturations into the 80s with activity, normal at rest is 88% of late Status: Acute (3) Acute exacerbation of chronic obstructive pulmonary disease: Problem details: prednisone azithromycin (oral) IV Rocephin legionella and strep pneumonia pending reviewed CT with and patient Status: Acute (4) Pneumonia: Problem details: Chest CT revealed a lot of chronic changes; small subtle infiltrate suspected in the RLL see above plan Status: Acute (5) COPD (chronic obstructive pulmonary disease): Problem details: In setting of active smoker, 1.5-2 ppd, poorly managed IJMY, noncompliant with CPAP Normal O2 saturation for him lately 88% at rest DuoNebs q.i.d., albuterol nebs p.r.n., continue home inhalers Oxygen supplementation, 88-92% Prednisone 40 mg daily Continue ceftriaxone and azithromycin RT for pulmonary support, IS Status: Acute (6) Heart failure with preserved ejection fraction: Problem details: Echocardiogram 10/2018, Final Impressions: 1. Technically limited exam. 2. Entire anterior septum and mid septum segment are abnormal. LV EF = 40-45% 3. Moderately enlarged right atrium. 4. Grade 1 pattern of LV diastolic filling. 5. Right ventricular cavity size is moderately enlarged, global systolic RV function is normal. 6. The ascending aorta is dilated with a maximal diameter of 4.4 cm. 7. The aortic sinus is dilated with a maximal diameter of 4.3 cm. This EF of 40-45% does not fit criteria of preserved ejection fraction as documented in his EMR BNP ordered Consider repeat echo if new or worsening symptoms or no improvement Status: Acute (7) CAD (coronary artery disease): Problem details: Continue ASA, antihypertensives, statin Status: Acute (8) Hypertension: Problem details: Continue home medications At home, checks his pulse and oxygen level regularly, desaturates into 80s with activity Status: Acute (9) Hyperlipidemia: Problem details: Continue statin Status: Acute (10) Tobacco abuse: Problem details: 1.5-2 ppd Has not been interested in quitting despite encouragement Status: Acute (11) MDD (major depressive disorder): Problem details: per EMR, History of depression and anxiety that is been poorly treated in the past. He is currently on 90 mg of Cymbalta daily. He has not wanted to do referral to psychology or see a psychiatrist. He also has not wanted to make any other changes to his medication. That has seemed to help a little but not very much. Continue duloxetine Status: Acute Subjective Date Seen: 05/26/24 Interval history: Daily Progress Note - Hospital Medicine Day #: 2 CC: pneumonia, CAP in a smoker with a hx of multiple medical problems 24 HOUR UPDATE: feeling much improved. off oxygen. Notable Labs, Micro, Rads, Interventions: last blood pressure outside this hospitalization: 124/74, 122/81 -- so running soft here. WBC is down to 12.79; admitted at 18.96 sodium normalized; normal electrolytes and renal function. CRP has increased to 8.[address] this morning: Demonstration of extensive sequela of prior atypical mycobacterial infection consistent with history of known MAC with cavitary lesion in the right upper lobe, scattered calcified pulmonary nodules, pleural thickening and parenchymal scarring predominantly within the right greater than left lower greater than upper lobes with questionable mild interlobular septal prominence and ground-glass in the right lung base likely representing chronic changes a subtle acute infiltrate may be difficult to exclude. No evidence of pulmonary embolus. No evidence of obvious acute typical consolidation. Objective: in chair; making jokes; seems comfortable. Vitals: see above Lungs: scattered rhonchi. Cardiac: S1S2. Disposition/Potential discharge - likely home tomorrow with Today I spent 50minutes seeing the patient, reviewing Expanse and EPIC notes/diagnostics, discussing the care plan with our care time that includes social work, PT/OT, pharmacy, RT, senior living and documenting my impressions and plan in the medical record. Exam Const: Vital Signs, click to edit/add: Vital Signs - 24 hr 05/25/24 13:34 05/25/24 13:56 05/25/24 13:56 Temperature 97.7 F Pulse Rate Pulse Rate [Pulse Oximeter] Respiratory Rate 18 18 Blood Pressure [Le ft Arm] Blood Pressure [Ri ght Arm] 93/65 Pulse Oximetry 90 90 90 Oxygen Delivery Me thod Nasal Cannula Nasal Cannula Oxygen Flow Rate 2 2 05/25/24 14:18 05/25/24 14:20 05/25/24 14:27 Temperature Pulse Rate 97 Pulse Rate [Pulse Oximeter] Respiratory Rate 20 Blood Pressure [Le ft Arm] Blood Pressure [Ri ght Arm] Pulse Oximetry Oxygen Delivery Me thod Nasal Cannula Nasal Cannula Oxygen Flow Rate 2 05/25/24 15:00 05/25/24 15:00 05/25/24 18:03 Temperature 97.7 F 98.3 F Pulse Rate Pulse Rate [Pulse Oximeter] 76 Respiratory Rate 20 20 18 Blood Pressure [Le ft Arm] 105/67 Blood Pressure [Ri ght Arm] 93/65 Pulse Oximetry 90 92 Oxygen Delivery Me thod Nasal Cannula Nasal Cannula Oxygen Flow Rate 2 2.5 05/25/24 19:00 05/25/24 23:00 05/25/24 23:00 Temperature 97.9 F 98.1 F Pulse Rate Pulse Rate [Pulse Oximeter] 73 73 Respiratory Rate 24 24 24 Blood Pressure [Le ft Arm] Blood Pressure [Ri ght Arm] 96/62 98/60 Pulse Oximetry 91 88 Oxygen Delivery Me thod Nasal Cannula Room Air Oxygen Flow Rate 2.5 05/25/24 23:10 05/26/24 03:00 Temperature 98.6 F Pulse Rate 70 Pulse Rate [Pulse Oximeter] 74 Respiratory Rate 24 Blood Pressure [Le ft Arm] Blood Pressure [Ri ght Arm] 97/62 Pulse Oximetry 87 L Oxygen Delivery Me thod Room Air Oxygen Flow Rate 0 Labs Labs: Laboratory Results - last 24 hr 05/25/24 05/25/24 05/25/24 11:11 12:00 13:39 WBC RBC Hgb Hct MCV MCH MCHC Plt Count Sodium Potassium Chloride Carbon Dioxide Anion Gap BUN Creatinine Estimated Creat Clear Estimated GFR Glucose Calcium Magnesium 2.1 C-Reactive Protein 4.0 H NT-Pro-B Natriuret Pep 644 Procalcitonin 0.13 Lab Acknowledgement Test Added 05/25/24 05/26/24 14:27 06:00 WBC 12.79 H RBC 4.79 Hgb 16.2 Hct 48.1 MCV 100 MCH 34 MCHC 34 Plt Count 160 Sodium 136 Potassium 3.6 Chloride 104 Carbon Dioxide 26 Anion Gap 6 L BUN 28 Creatinine 0.9 Estimated Creat Clear 68.40 Estimated GFR 93 Glucose 111 Calcium 8.8 Magnesium C-Reactive Protein 8.9 H NT-Pro-B Natriuret Pep Procalcitonin Lab Acknowledgement Test Added
[2024-05-26] MEDS: NICOTINE 21 MG PATCH 1 PATCH TRANSDERMA (15:04)
[2024-05-26 17:25] LABS: Bilirubin Urine Negative (Negative); Blood Urine Negative (Negative); Glucose Urine Negative (Negative); Ketones Urine Negative (Negative); Leukocyte Esterase Urine Negative (Negative); Nitrite Urine Negative (Negative); Protein Urine Negative (Negative); pH Urine 5.5 (5.0-8.5)
[2024-05-26 17:29] LABS: Appearance Urine Clear (Clear); Color Urine Yellow (Yellow)
[2024-05-26 17:30] LABS: Bacteria Urine Few; RBC Urine 0-2 (0-2); WBC Urine 0-2 (0-5)
[2024-05-26 18:30] LABS: Legionella pneumo Ag Urine L. pneumo Negative (Negative); S pneumo Ag Urine S. pneumo Negative (Negative)
[2024-05-26] MEDS: ROSUVASTATIN CALCIUM 10 MG TABLET 5 MG PO (21:11)
[2024-05-26] MEDS: ENOXAPARIN 30 MG/0.3ML INJ SUBCUT (21:20)
[2024-05-27 02:48] VITALS: BP 122/74; PULSE 75; RESP 20; TEMP 36.4; O2SAT 90
[2024-05-27 06:25] LABS: HCO3 VBG 29 mmol/L (21-28); PCO2 VBG 44 mmHG (40-50); PO2 VBG < 30.1 mmHG (25-47); pH VBG 7.426 (7.32-7.43)
[2024-05-27 06:31] LABS: Basophils Percent Auto 0.3 % (0.0-3.0); Eosinophils Percent Auto 0.2 % (0.0-7.0); Hematocrit 48.3 % (37.0-53.0); Hemoglobin* 16.2 gm/dL (13.5-17.5); Immature Granulocytes Pct Auto 0.3 %; Lymphocytes Percent Auto 13.1 % (20-44); Mean Corpuscular HGB Conc 34 gm/dL (32-36); Mean Corpuscular Hemoglobin 34 pg (26-34); Mean Corpuscular Volume 100 fL (80-100); Monocytes Percent Auto 9.8 % (0.0-11.0); Neutrophils Percent Auto 76.3 % (42.0-72.0); Platelet Count* 160 K/uL (140-440); RDW Coefficient of Variation % 13.3 % (11.5-15.5); Red Blood Count 4.81 m/uL (4.30-5.90); White Blood Count* 12.48 K/uL (4.50-11.00)
[2024-05-27 06:34] LABS: Slide Review Reflex No
[2024-05-27 06:44] LABS: Chloride* 103 mmol/L (96-114); Potassium* 3.8 mmol/L (3.6-5.1); Sodium* 138 mmol/L (135-149)
[2024-05-27 06:47] LABS: Creatinine* 0.9 mg/dL (0.5-1.5); Estimated Glomerular Filt Rate 93 ml/min
[2024-05-27 06:48] LABS: Anion Gap 7 mEq/L (7-15); Blood Urea Nitrogen* 23 mg/dL (7-30); Carbon Dioxide* 28 mmol/L (20-32); Glucose* 96 mg/dL (60-115)
[2024-05-27 06:50] LABS: C Reactive Protein* 6.3 mg/dL (0.5-1.0)
--- NOTE | 2024-05-27 08:04 | PC.NURSE ---
Shift note ([id number]): Patient pleasant, alert and cooperative. Requested PRN Tylenol at HS for pain in his back and neck rated 4/10. Ambulates in room independently with 4-wheeled walker. O2 sats 86-92% on room air during night. Slept in recliner for most of night.?
[2024-05-27 08:21] VITALS: BP 113/90; PULSE 83; RESP 20; TEMP 36.9; O2SAT 90
[2024-05-27] MEDS: DULOXETINE 30 MG CAPSULE DR 90 MG PO (09:11)
[2024-05-27] MEDS: LOSARTAN POTASSIUM 50 MG TABLET PO (09:11)
[2024-05-27] MEDS: METOPROLOL SUCCINATE (XL) 50 MG TAB PO (09:11)
[2024-05-27] MEDS: predniSONE 20 MG TABLET 40 MG PO (09:11)
[2024-05-27] MEDS: AZITHROMYCIN 250 MG TABLET 500 MG PO (09:11)
[2024-05-27] MEDS: cefTRIAXone 1 GM in 0.9 % SODIUM CHLORIDE Mini-bag 100 ML IVPB (09:12)
[2024-05-27] MEDS: hydroCHLOROthiazide 12.5 MG CAPSULE PO (09:12)
[2024-05-27] MEDS: IPRAT-ALBUT 0.5-2.5 MG/3 ML NEB 1 NEB IH (09:12)
[2024-05-27] MEDS: ASPIRIN 81 MG TABLET EC PO (09:12)
[2024-05-27] MEDS: Budesonide-Formoterol 160-4.5 mcg/actuation HFA aerosol inhaler IH (09:13)
[2024-05-27] MEDS: SODIUM CHLORIDE 0.9 % (FLUSH) 10 ML SYRINGE 5 ML IVF (09:14)
[2024-05-27 10:18] VITALS: PULSE 96
--- NOTE | 2024-05-27 13:40 | P.DS_ITS ---
DS: Providers Provider Date Seen: 05/27/24 Date of admission: 05/25/24 13:34 Primary care physician: Jt Wade MD Admitting Clinician: Yulia Hernandez MD Consults: 05/25/24 13:34 Consult to Respiratory Therapy [CONS] Routine Comment: Reason(s) for RT Consult:: Consult 05/25/24 14:22 Consult to Physical Therapy [CONS] Routine Comment: Reason(s) for PT Consult:: Balance Assessment Any Restrictions?:: No Restrictions 05/26/24 10:18 Consult to Occupational Therapy [CONS] Routine Comment: Reason(s) for OT Consult:: Evaluate and Treat Any Restrictions?:: No Restrictions Attending Physician on discharge: Yulia Hernandez MD Date of Discharge: 05/27/24 DS: Diagnosis Discharge Diagnosis (1) Sepsis: Status: Acute Problem details: rec'd oral and IV fluid, we chose 1L of D5 1/2NS, due to national shortage of IVF. tachycardia/fever have resolved. BP is still soft but MAP is >65. BC NGTD resolved by discharge (2) Acute hypoxic respiratory failure: Status: Acute Problem details: now weaned from oxygen; lives in the 88-92% on RA ED reports oxygen saturation <88% per EMR, 89% in ED In setting of suspected community acquired pneumonia, history of COPD, unmanaged JMIY Continue oxygen supplementation, maintaining saturations 88-92%, weaning as able RT for pulmonary support Of note, EMR states patient checks his O2 sats at home with noted desaturations into the 80s with activity, normal at rest is 88% of late (3) Acute exacerbation of chronic obstructive pulmonary disease: Status: Acute Problem details: In setting of active smoker, 1.5-2 ppd, poorly managed JIMY, noncompliant with CPAP - In the ED the patient had sepsis and respirtory distress. Normal O2 saturation for him lately 88% at rest DuoNebs q.i.d., albuterol nebs p.r.n., continue home inhalers Oxygen supplementation, 88-92% Prednisone 40 mg daily then taper Continue ceftriaxone and azithromycin until discharge and then oral abx to follow RT for pulmonary support, IS azithromycin (oral) + IV Rocephin transition to oral cefpodoxime at discharge legionella and strep pneumonia neg reviewed CT with and patient (4) Pneumonia: Status: Acute Problem details: Chest CT revealed a lot of chronic changes; small subtle infiltrate suspected in the RLL see above plan (5) Tobacco abuse: Status: Acute Problem details: 1.5-2 ppd Has not been interested in quitting despite encouragement (6) MDD (major depressive disorder): Status: Acute Problem details: per EMR, History of depression and anxiety that is been poorly treated in the past. He is currently on 90 mg of Cymbalta daily. He has not wanted to do referral to psychology or see a psychiatrist. He also has not wanted to make any other changes to his medication. That has seemed to help a little but not very much. Continue duloxetine (7) Heart failure with preserved ejection fraction: Status: Acute Problem details: Echocardiogram 10/2018, Final Impressions: 1. Technically limited exam. 2. Entire anterior septum and mid septum segment are abnormal. LV EF = 40-45% 3. Moderately enlarged right atrium. 4. Grade 1 pattern of LV diastolic filling. 5. Right ventricular cavity size is moderately enlarged, global systolic RV function is normal. 6. The ascending aorta is dilated with a maximal diameter of 4.4 cm. 7. The aortic sinus is dilated with a maximal diameter of 4.3 cm. This EF of 40-45% does not fit criteria of preserved ejection fraction as documented in his EMR BNP ordered Consider repeat echo if new or worsening symptoms or no improvement (8) CAD (coronary artery disease): Status: Acute Problem details: Continue ASA, antihypertensives, statin (9) Hypertension: Status: Acute Problem details: Continue home medications At home, checks his pulse and oxygen level regularly, desaturates into 80s with activity (10) Hyperlipidemia: Status: Acute Problem details: Continue statin DS: Summary Hospital Course Hospital Course: FINAL DIAGNOSIS/FOLLOW UP ISSUES: 1. Severe COPD - counseled extensively about smoking cessation or reduction, compliance with medications, pulmonary rehab, updating sleep study with different equipment, oxygen trial. Patient had limited insight and understands his health is worsening. He tells me one of the few things that he has in life to enjoy is rolling cigarettes and smoking. He refuses oxygen at home, CPAP or really further treatments. 2. He has a difficult chest xray to interpret in the setting of his previous MAC infection and COPD. CT this admission showed a small subtle infiltrate suspected in the RLL. For this he was treated with IV Rocephin, azithromycin and transitioned to oral Vantin at discharge with prednisone taper. BRIEF HOSPITAL COURSE: Patient was admitted for 3 days. Synopsis of acute inpatient issues are outlined above. Chronic medical conditions with notable findings outlined above. He may benefit from what I described above but in order to allow him the best quality of life and less ER visits and hospitalizations - a self start antibiotic/prednisone may be indicated. Keeping him on a low dose prednisone may be beneficial. DISCHARGE MEDICATIONS: See Reconciled list - SIGNIFICANT CHANGES: Scheduled Nebs with DuoNeb Specific instructions to the patient and follow-up are outlined below. REVIEW OF SYSTEMS No new chest pain or dyspnea Pain controlled No voiding difficulties Tolerating diet challenge PHYSICAL EXAM: CONSTITUTIONAL: alert, no resp distress. laughing/coughing. VITAL SIGNS: see record. HEENT: Normocephalic, atraumatic. PERRL, EOMI, conjunctivae pink, no scleral icterus. Ears and nose externally normal. Pharynx normal. NECK: No JVD. No carotid bruit, no thyromegaly, no adenopathy. CHEST: scattered rhonchi; no resp distress or obvious air hunger HEART: S1 and S2 normal. Edema trace ABDOMEN: Soft, nontender. Normal bowel sounds. MUSCULOSKELETAL: No gross joint deformity or swelling. NEURO: Cranial nerves intact. Grossly intact. No asymmetric findings. SKIN: No rashes, petechiae, concerning changes PSYCHIATRIC: Mood euthymic. DISPOSITION: Home with Time spent on discharge 37 minutes. Time spent discussing smoking cessation with patient: more than 10 minutes Status at Discharge Functional status at discharge: uses cane/walker Overall status at discharge: patient is progressing back to baseline Time Spent with Patient Time attestation: Total time spent providing and/or coordinating discharge services: Exam Const: Vital Signs, click to edit/add: Vital Signs - 24 hr 05/26/24 15:00 05/26/24 15:35 05/26/24 15:35 Temperature 97.3 F L Pulse Rate 67 Pulse Rate [Pulse Oximeter] 77 Respiratory Rate 20 20 Blood Pressure [Ri ght Arm] Pulse Oximetry 89 Oxygen Delivery Me thod Room Air Oxygen Flow Rate 0 05/26/24 19:00 05/26/24 21:55 05/26/24 23:00 Temperature 98.1 F 97.8 F Pulse Rate Pulse Rate [Pulse Oximeter] 89 85 Respiratory Rate 22 22 22 Blood Pressure [Ri ght Arm] 107/66 121/77 Pulse Oximetry 88 88 87 L Oxygen Delivery Me thod Room Air Room Air Room Air Oxygen Flow Rate 05/26/24 23:00 05/26/24 23:00 05/27/24 02:48 Temperature 97.6 F Pulse Rate 73 Pulse Rate [Pulse Oximeter] 75 Respiratory Rate 20 Blood Pressure [Ri ght Arm] 122/74 Pulse Oximetry 87 L 90 Oxygen Delivery Me thod Room Air Oxygen Flow Rate 05/27/24 08:21 05/27/24 08:21 05/27/24 08:21 Temperature 98.4 F Pulse Rate Pulse Rate [Pulse Oximeter] 83 Respiratory Rate 20 20 Blood Pressure [Ri ght Arm] 113/90 H Pulse Oximetry 90 90 90 Oxygen Delivery Me thod Room Air Room Air Oxygen Flow Rate 05/27/24 10:18 Temperature Pulse Rate 96 Pulse Rate [Pulse Oximeter] Respiratory Rate Blood Pressure [Ri ght Arm] Pulse Oximetry Oxygen Delivery Me thod Oxygen Flow Rate DS: Data Data Completed and Pending Labs on day of discharge: Labs from last 24 hours 05/27/24 05/26/24 06:19 17:17 WBC 12.48 H RBC 4.81 Hgb 16.2 Hct 48.3 MCV 100 MCH 34 MCHC 34 RDW Coeff of Yelena 13.3 Plt Count 160 Neut % (Auto) 76.3 H Lymph % (Auto) 13.1 L Liberty % (Auto) 9.8 Eos % (Auto) 0.2 Baso % (Auto) 0.3 Neut # (Auto) 9.50 H Lymph # (Auto) 1.60 Liberty # (Auto) 1.20 H Eos # (Auto) 0.00 Baso # (Auto) 0.00 Abs Immat Gran (auto) 0.00 Imm/Tot Granulo (auto) 0.3 VBG pH 7.426 VBG pCO2 44 VBG pO2 < 30.1 VBG HCO3 29 H Sodium 138 Potassium 3.8 Chloride 103 Carbon Dioxide 28 Anion Gap 7 BUN 23 Creatinine 0.9 Estimated Creat Clear 68.40 Estimated GFR 93 Glucose 96 Calcium 9.0 C-Reactive Protein 6.3 H Urine Color Yellow Urine Appearance Clear Urine pH 5.5 Ur Specific Boley 1.010 Urine Protein Negative Urine Glucose (UA) Negative Urine Ketones Negative Urine Blood Negative Urine Nitrite Negative Urine Bilirubin Negative Urine Urobilinogen 2.0 A Ur Leukocyte Esterase Negative Urine RBC 0-2 Urine WBC 0-2 Ur Squamous Epith Cells None Urine Bacteria Few A Urine L. pneumophilia Ag L. pneumo Negative Urine Strep pneumoniae Ag S. pneumo Negative Preliminary micro results at discharge 05/25/24 12:45 Blood Culture - Preliminary Blood NO GROWTH AFTER 48 HOURS 05/26/24 17:17 Urine Culture - Preliminary Urine,Clean Catch Culture in Progress Discharge Plan Discharge Disposition: Home w/ Parent or Adult Date of Admission: 05/25/24 13:34 Attending Provider on Discharge: Yulia Hernandez Primary Care Provider: Jt Wade Anticipated Discharge Date/Time: 05/27/24 11:09 Discharge Medications: New cefpodoxime 200 mg tablet 200 mg PO BID Qty: 10 0RF Rx Instructions: must administer with a meal/food prednisone 20 mg Tablet 20 mg PO DAILYWM Qty: 16 0RF Rx Instructions: 16 TABS: Take two tabs each morning for the next four days. Then, take one tab daily for five days, then take 1/2 tab for six days. Lastly, take the other bottle of prednisone (5mg) and take one tab for five days. prednisone 5 mg tablet 5 mg PO DAILY Qty: 5 0RF Rx Instructions: after the 20mg taper, finish five days of this low dose prednisone. (DME) nebulizer and compressor Device See Rx Instructions .Route Qty: 1 0RF Rx Instructions: q4 hours as needed. Use whatever brand and set up is covered and/or available. ipratropium-albuterol 0.5 mg-3 mg(2.5 mg base)/3 mL solution for nebulization 3 ml inhalation Q4H PRNQty: 180 0RF Continued metoprolol succinate 50 mg tablet extended release 24 hr 50 mg PO DAILY albuterol sulfate 90 mcg/actuation HFA aerosol inhaler 1 - 2 puff inhalation Q4H PRN losartan-hydrochlorothiazide 50-12.5 mg tablet 1 tab PO DAILY rosuvastatin 5 mg tablet 5 mg PO DAILY duloxetine 30 mg capsule,delayed release(DR/EC) 30 mg PO DAILY duloxetine 60 mg capsule,delayed release(DR/EC) 60 mg PO DAILY budesonide-formoterol 160-4.5 mcg/actuation HFA aerosol inhaler 2 puff inhalation BID aspirin 81 mg tablet,delayed release (DR/EC) 81 mg PO DAILY multivitamin [Daily Multi-Vitamin] Tablet 1 tab PO DAILY psyllium Powder 1 tbsp PO DAILY Rx Instructions: mix into at least 8 oz of water or juice before administering sumatriptan succinate [Imitrex] 100 mg tablet See Rx Instructions .ROUTE .COMPLEX Rx Instructions: take 1 tab at onset of headache; if no relief, may repeat 1 tab after at least 2 hrs; max = 2 tabs/24 hrs Discharge Orders: Discharge Order (Routine); Ordered 05/27/24 Ordered By: Yulia Hernandez Patient Education: Prednisone (By mouth), Cefpodoxime Proxetil (By mouth), Ipratropium/Albuterol (By breathing), COPD (Chronic Obstructive Pulmonary Di sease) (DC), How to Use a Nebulizer (DC), Pneumonia (DC) Additional Instructions: 1. Take your Symbicort daily 2. As needed use the new nebulizer and the solution every 4-6 hours or your albuterol inhaler 3. Cut back or stop smoking 4. Finish the antibiotic and prednisone 5. Follow-up with your PCP, Dr. Wade, and discuss a self-start/home med supply for COPD. This often includes a short course of antibiotics and prednisone. 6. Ideally, you would pursue pulmonary rehab, tobacco cessation and sleep study (there are newer masks/devices) Activity Level: Activity as Tolerated Discharge Diet: Regular Follow Up Appointments: Jt Wade MD [Primary Care Provider] - 06/08/24 11:45 am (Néstor Corralesmikhail [facility] for follow-up.) Forms: [employer] Info Instructions
== END 2024-05-27 11:56 | disposition home or self-care (01) | DRG 871 ==
LOC: ED 11:10 → MEDSURG 13:23
PROVIDERS: Admitting Provider Physician Assistant; Emergency Provider Emergency Medicine; PCP Surgery; Visit Provider Family Medicine
DX: A41.9 Sepsis, unspecified organism (principal); J18.1 Lobar pneumonia, unspecified organism; J96.01 Acute respiratory failure with hypoxia; J44.1 Chronic obstructive pulmonary disease with (acute) exacerbation; J44.0 Chronic obstructive pulmonary disease with (acute) lower respiratory infection; F17.218 Nicotine dependence, cigarettes, with other nicotine-induced disorders; F32.9 Major depressive disorder, single episode, unspecified; E78.5 Hyperlipidemia, unspecified; I25.10 Atherosclerotic heart disease of native coronary artery without angina pectoris; I11.0 Hypertensive heart disease with heart failure; I50.9 Heart failure, unspecified; G47.33 Obstructive sleep apnea (adult) (pediatric); I71.40 Abdominal aortic aneurysm, without rupture, unspecified; M79.7 Fibromyalgia; I73.9 Peripheral vascular disease, unspecified; Z87.09 Personal history of other diseases of the respiratory system; Z85.47 Personal history of malignant neoplasm of testis
CPT/HCPCS: 36415; 71046; 71260; 80048; 81001; 82803; 83605; 83735; 83880; 84145; 84484; 85025; 85027; 86140; 87040; 87086; 87449; 87631; 87899; 93005; 94640; 97116; 97162; 97165; 97535; 99284; 99285; A9270; J0696; J1650; J3480; J7512; Q9967; S4990

== ENCOUNTER 2024-09-01 17:50 | Outpatient (CLI) | payer MEDICARE, BC, SELFPAY | END 2024-09-01 17:51 | disposition home or self-care (01) | LOC: AMB 09-15 18:27 | PROVIDERS: PCP Surgery; Visit Provider Emergency Medicine | DX: R06.09 Other forms of dyspnea (principal) | CPT/HCPCS: A0425; A0427 ==

== ENCOUNTER 2024-09-01 18:29 | Inpatient (IN) | payer MEDICARE, BC, SELFPAY ==
[2024-09-01] VITALS (37 sets, daily range): BP systolic 95–141; BP diastolic 77–112; PULSE 73–129; RESP 23–33; TEMP 35.8–36.1; O2SAT 77–97; BMI 31.9
--- OUTSIDE RECORDS SUMMARY | 2024-09-01 18:31 | XMS_ITS | Clinical Summary ---
Author Organization [employer] [facility] Address [place], [place] [address] Care Team Providers Care Child Care Education Coordinator Name Role Phone Luis Leyva MD Unavailable Amos Wade MD Primary Care Provider [phone] Luciano Cunningham MD Unavailable [phone] Allergies Active Allergy Reactions Criticality Noted Date Comments Pregabalin Edema 04/18/2015 Weight gain, numbness, edema Medications aspirin (ECOTRIN) 81 mg enteric coated tabletIndications :Coronary artery disease involving [place] coronary artery of [place] heart without angina pectoris Take 1 tablet by mouth once daily with a meal. 0 07/07/20 15 Active multivitamin (MVI) tablet Take 1 Tablet by mouth once daily. 0 05/16/20 22 Active psyllium (Fiber Laxative, psyllium husk,) 0.52 gram capsuleIndication s:Chronic constipation Take 1 Capsule by mouth once daily. 90 Capsule 3 05/16/20 22 Active albuterol HFA (PRO-AIR; VENTOLIN; PROVENTIL) 90 mcg/actuation inhalerIndication s:Chronic obstructive pulmonary disease, unspecified COPD type (HC) Inhale 1-2 Puffs by mouth every 4 hours if needed for Shortness of Breath 1st choice. For cough, shortness of breath, or prior to activity 1 Each 3 09/15/19 24 Active DULoxetine (CYMBALTA) 30 mg Delayed-release capsuleIndication s:Major depressive disorder, recurrent, severe without psychotic features (HC) TAKE 1 CAPSULE BY MOUTH ALONG WITH 60 MG CAPSULE FOR 90 MG DAILY 90 Capsule 3 09/15/19 24 Active DULoxetine (CYMBALTA) 60 mg Delayed-release capsuleIndication s:Chronic migraine without aura without status migrainosus, not intractable,Major depressive disorder, recurrent, severe without psychotic features (HC) TAKE 1 CAPSULE BY MOUTH ALONG WITH 30 MG CAPSULE FOR 90 MG TOTAL DAILY 90 Capsule 3 09/15/19 24 Active rosuvastatin (CRESTOR) 5 mg tabletIndications :Hyperlipidemia, unspecified hyperlipidemia type Take 1 Tablet (5 mg) by mouth at bedtime. 90 Tablet 3 09/15/19 24 Active albuterol-ipratro pium (DUONEB) (2.5-0.5 mg) in 3 mL NEBULIZATION solution Inhale 1 Neb via a nebulizer every 6 hours if needed for Shortness Of Breath. 05/27/20 24 Active metoprolol succinate (TOPROL XL) 50 mg sustained-release tabletIndications :Chronic heart failure with preserved ejection fraction (HC) Take 1 Tablet (50 mg) by mouth once daily. 90 Tablet 07/28/20 24 Active budesonide-formot Fadumo (SYMBICORT) 160-4.5 mcg/actuation (160-4.5 mcg each actuation) inhalerIndication s:Chronic obstructive pulmonary disease, unspecified COPD type (HC) INHALE 2 PUFFS BY MOUTH TWICE DAILY 30.6 g 08/23/19 25 Active budesonide-formot Fadumo (Symbicort) 160-4.5 mcg/actuation (160-4.5 mcg each actuation) inhalerIndication s:Chronic obstructive pulmonary disease, unspecified COPD type (HC) Inhale 2 Puffs by mouth two times daily. 10.2 g 11 09/15/19 24 025 Discontinued Active Problems Problem Noted Date Diagnosed Date Abdominal aortic aneurysm (AAA) without rupture 06/08/2024 Adenomatous colon polyp 05/29/2021 Overview (05/29/2021): Colonoscopy 05/2021 2-TA, repeat in 7 years, PEG 8L Chronic migraine without aur a without status migrainosus, not intractable 08/29/2016 Polyp of vocal cord or larynx 07/07/2015 Overview (07/07/2015): Benign - removed 2009 Hypertension 07/07/2015 Cervical stenosis of spine 03/22/2013 Thoracic back pain 12/21/2012 Testicular cancer 05/07/2011 Overview (05/07/2011): R orchiectomy in 1987 Popliteal aneurysm, left--s/p repair 06-06-11 Hypertrophy of prostate with urinary obstruction and other lower urinary tract symptoms (LUTS) 04/03/2011 Smoker 03/20/2011 ACP (advance care planning) 02/25/2011 Overview (02/25/2011): Patient has identified Health Care Agent(s): Yes Add Health Care Agents: Yes Health Care Agent(s): Primary Health Care Agent: Ban Kate Relationship: spouse Secondary Health Care Agent: Relationship: Phone: Conservator: Relationship: Phone: Guardian: Relationship: Phone: Patient has Advance Care Plan Documents (Health Care Directive, POLST): No, Health Care Packet given to family. Patient has identified Specific Treatment Preferences: No Specific limits to treatment preferences NOT identified: ASSUME FULL TREATMENT. Mixed hyperlipidemia 05/30/2010 Asbestos exposure 05/25/2010 Overview (06/01/2010): Asbestos exposure to insulation in 1960s. Has Pleural based nodules, but no interstitial disease on CT imaging. No evidence of mesothelioma noted. Vitamin D deficiency 05/08/2010 IBS (irritable bowel syndrome) 07/27/2009 COPD (chronic obstructive pulmonary disease) 09/2008 Cor pulmonale 05/19/2009 Family history of malignant neoplasm of prostate 10/11/2008 Fibromyalgia syndrome 08/24/2008 Coronary atherosclerosis of unspecified type of vessel, [place] or graft 09/22/2007 Overview (05/31/2010): mild-mod disease found on CT angiogram Aug 2006 05/30/10 STEMI level 1 protocol, DARELL to dLAD, plavix x 1 year Major depressive disorder, recurrent episode, un specified 10/20/2006 Overview (10/20/2006): chronic Resolved Problems Problem Noted Date Diagnosed Date Resolved Date Heart failure with preserved ejection fraction 07/07/2015 06/08/2024 Degeneration of cervical intervertebral disc 3 07/07/2015 AAA (abdominal aortic aneurysm), infrarenal 04/30/2012 06/08/2024 Claudication 05/02/2011 07/07/2015 Screen for colon cancer 04/16/201105/19 Overview (04/16/2011): Colonoscopy 03/2011 diverticulosis repeat in 10 years Medical Home 10/10/2010 01/31/2012 Overview (10/10/2010): leasing property manager Diane Bettencourt RN [phone] Pleural scarring 06/05/2010 07/07/2015 Hemoptysis 06/01/2010 03/20/2011 Acute myocardial infarction of anterior wall 0 03/20/2011 Tobacco abuse 05/30/2010 06/05/2010 Unspecified venous (peripheral) insufficiency 05/21/20 10 07/07/2015 CKD (chronic kidney disease), stage II 05/21/2010 05/02/2011 Prurigo nodularis 09/22/2009 03/20/2011 Prurigo nodularis 07/06/2009 07/07/2015 Overview (07/06/2009): See notes June 2009 Myalgia and myositis, unspecified 09/24/2007 09/22/2009 Other diseases of vocal cords 09/22/2007 07/07/2015 Other and unspecified hyperlipidemia 09/08/2007 07/07/2015 Chest pain, unspecified 09/08/2007 08/0 10/2010 Other emphysema 07/24/2007 09/22/2009 Overview (07/24/2007): Emphysema mild Tobacco use disorder 07/24/2007 010 Myalgia and myositis, unspecified 08/21/2005 09/22/2009 Idiopathic interstitial pneumonia 10/27/2018 Overview (10/11/2008): see CT scans 2005; follow yearly CXRs Abdominal aneurysm without mention of rupture 06/08/2024 Overview (10/11/2008): found on PET scan; follow yearly ultrasounds Encounters Date Type Department Care Team Description 08/31/2024 Refill [facility] [address] [facility] [place] [address] Amos Wade MD Refill Request (Duloxetine, Rosuvastatin) 08/30/2024 9:15 AM GARBAGE COLLECTOR SUPERVISOR Ancillary Procedure [facility] [address] [place] [address] Arrived 08/30/2024 Travel 08/18/2024 Refill [facility] [address] [place] [address] Amos Wade MD Refill Request (Budesonide-formoter ol) 07/25/2024 Refill [facility] [address] [place] [address] Amos Wade MD Refill Request (Metoprolol Succinate) 06/10/2024 11:00 AM CDT Ancillary Procedure [facility] [address] [place] [address] 06/10/2024 Travel 06/08/2024 11:45 AM CDT Office Visit [facility] [address] [place] [address] Amos Wade MD Hospital F/U (Patient states he is feeling better since in the hospital); Immunization/Injecti on (COVID-19 vaccine) 06/08/2024 Travel from Last 3 Months Immunizations Name Administration Dates Next Due AMB Influenza, IIV4 PF (=>6 mos Flulaval,Fluzone Fluarix)(Flu Clinic Only) 07/02/2019 COVID-19 VACCINE SPIKEVAX (M ODERNA 50MCG/0.5ML) 12YO+ PFS 06/08/2024,06/13/2023 COVID-19 vaccine (Pfizer-Bio NTech 30mcg/0.3mL) 12YO+ BIVALENT PF, MDV 05/16/2022 COVID-19 vaccine (Pfizer-Bio NTech 30mcg/0.3mL) PF, MDV 05/18/2021,01/11/2021,12/18/2020 Influenza A (H1N1), Inactivated 07/27/2009 Influenza A (H1N1), Inactiva catina (Age >=3 Years) 07/27/2009 Influenza, IIV3 (Age 6-35 mos) 06/25/2011,2009 Influenza, IIV3 (Age >=3 years) 07/14/20 12,06/25/2011,05/08/2010,2008,06/30/2003 Influenza, IIV4 07/02/2019,09/04/2017,05/18/2015 Influenza, IIV4 (=>6mos) MDV 09/04/2017 Influenza, Inactivated AIIV4 (Age 65+ Years) Preserv Free 06/13/2023,05/16/2022,05/18/2021 Influenza, Inactivated IIV3 (Age 65+ Years) Preserv Free 06/08/2024 Influenza,CCIIV4 PRESERV FREE 06/18/2018 Pneumococcal Conj 20-valent (Prevnar 20) 05/16/2022 Pneumococcal Poly,23-Valent (Pneumovax) 10/11/2008 Pneumococcal conj 13-Valent (Prevnar 13) 05/18/2021 Td (Age >=7 Years) 05/25/2003 Tdap 04/21/2012 Family History Medical History Relation Name Comments Unknown Brother 3 Alcohol/Drug Brother 4 Psychiatric illness Daughter 2 depressi on or bipolar Alcohol/Drug Father Cancer-prostate Father Diabetes Mother Other Mother anxiety; neurop athy Stroke Mother Relation Name Status Comments Brother 1 Alive Brother 2 Alive Brother 3 Brother 4 Daughter 1 Alive Daughter 2 Father (Age 74) prostate c ancer Mother Alive Son Alive Social History Tobacco Use Types Packs/Day Years Used Date Smoking Tobacco: Every Day Cigarettes 1.5 52 Started: 1972 Smokeless Tobacco: Never Tobacco Cessation:Ready to Q uit: Yes; Counseling Given: Not Answered Comments:Wellbutrin: a lot of drugs haven't helped. Patch: hard time with adherance. Alcohol Use Standard Drinks/Week Comments No 1.7 (1 standard drin k = 0.6 oz pure alcohol) went through treatment in 1983; has 1-2 beers a year (at most) PHQ-2 Answer Date Recorded PHQ-2 TOTAL SCORE 5 09/15/2023 Social Connections Answer Date Recorded Frequency of Communication with Friends and Fami ly 4 06/13/2023 Financial Resource Strain Answer Date R ecorded Difficulty of Paying Living Expenses 3 06/13/2023 Difficulty of Paying Living Expenses Not on file 06/13/2023 Food Insecurity Answer Date Recorded Do you worry your food will run out before you are able to buy more? 1 06/13/2023 Transportation Needs Answer Date Record ed Lack of Transportation (Medical) 1 06/13/2023 Housing Stability Answer Date Recorded What is your housing situation today? 1 06/13/2023 Sex and Gender Information Value Date Recorded Sex Assigned at Not on file Legal Sex Male 5:27 AM GARBAGE COLLECTOR SUPERVISOR Gender Identity Not on file Sexual Orientation Not on file Obstetrics History Last Filed Vital Signs Vital Sign Reading Time Taken Comments Blood Pressure 118/78 06/08/2024 11:50 AM CDT Pulse 81 06/08/2024 11:50 AM CDT Temperature 36.4 C (97.6 F) 05/12/2023 2:54 PM CDT Respiratory Rate 16 06/27/2021 12:20 PM GARBAGE COLLECTOR SUPERVISOR Oxygen Saturation 89% 06/08/2024 11:50 AM CDT Inhaled Oxygen Concentration - - Weight 96.3 kg (212 lb 4.8 oz) 06/08/2024 11:50 AM CDT Height 174.5 cm (5' 8.7) 09/15/2023 1:07 PM GARBAGE COLLECTOR SUPERVISOR Body Mass Index 31.62 09/15/2023 1:07 PM GARBAGE COLLECTOR SUPERVISOR Plan of Treatment Upcoming Encounters Date Type Department Care Team (Late st Contact Info) Description 09/02/2024 1:00 PM GARBAGE COLLECTOR SUPERVISOR Office Visit [facility] [address] [place] [address] Lawrence Low MD [address] [facility] [address] [place] [address] Health Maintenance Due Date Last Done Comments Zoster (shingles) series for age 50+ (1 of 2) 02/26/2006 RSV vaccine for adults or (1 - Risk 60-74 years 1-dose series) 2016 Tetanus booster 04/21/2022 04/21/2012, 05/25/2003 BMI (ht and wt on same day) for age 18+ 09/15/2024 09/15/2023, 09/16/2022, 09/14/2019, Additional history exists Depression screening for age 12+ 09/15/2024 09/15/2023, 06/13/2023, 09/16/2022, Additional history exists Medicare Wellness for age 65+ 09/15/2024 09/15/2023, 09/16/[address] (for lung CA) ag e 50-80 09/22/2024 09/22/2023, 07/18/2022, 10/11/2019, Additional history exists Lipids for age 45-75 09/15/2028 09/15/2023, 08/02/2021, 05/18/2021, Additional history exists Colonoscopy through age 75 05/25/203105/25, 05/25/2021, 05/25/2021, Additional history exists Tdap Completed 04/21/2012 Hepatitis C screening for ag e 18-79 Completed 05/18/2021 AAA screening age 65-74 Completed 05/29/20, 04/20/2020, 03/23/2020, Additional history exists Pneumococcal series for age 50+ Completed 05/16/2022, 05/18/2021, 10/11/2008 COVID-19 vaccine series Completed 06/08/20 24, 06/13/2023, 05/16/2022, Additional history exists Influenza for age 65+ Completed 06/08/2024 , 06/13/2023, 05/16/2022, Additional history exists Goals Goal Patient Goal Type Associated Problems Recent Progress Patient-Stated? Author [id number] SCORE WILL SHOW IMPROVEMENT -goal of less than 9 in 6 months 09/2012 Diet Not on track( 12:27 PM GARBAGE COLLECTOR SUPERVISOR) No Bettie Bazzi RN DEPRESSION-PATIENT PARTICIPATES IN BEHAVIRAL ACTIVATION, SMALL GOAL SETTING- eating low fat diet, less refined foods Diet On track( 12:27 PM GARBAGE COLLECTOR SUPERVISOR) No Bettie Bazzi RN DEPRESSION-PATIENT PARTICIPATES IN BEHAVIORAL ACTIVATION, SMALL GOAL SETTING by 10/16/2011 as evidence by patient starting membership at [facility] per report Diet Not on track( 012 11:26 AM CDT) No Bettie Bazzi RN DEPRESSION-PATIENT PARTICIPATES IN BEHAVIORAL ACTIVATION, working with a therapist in 2 months 05/17/2012 Diet No Bridgett Morley Procedures Procedure Name Priority Date/Time Associated Diagnosis Comments US ANKLE BRACHIAL INDEX BILATERAL Routine 08/30/2024 9:51 AM GARBAGE COLLECTOR SUPERVISOR Popliteal aneurysm (HC) ECHO TTE COMPLETE W CONTRAST Routine 06/10/2024 11:52 AM CDT Chronic heart failure with preserved ejection fraction (HC) CT CHEST SCREENING LOW DOSE WO CONTRAST Routine 09/22/2023 9:03 AM GARBAGE COLLECTOR SUPERVISOR Encounter for screening for lung cancer Personal history of nicotine dependence LIPID PANEL Routine 09/15/2023 2:44 PM GARBAGE COLLECTOR SUPERVISOR HTN (hypertension) CTA CHEST ABDOMEN PELVIS Routine 05/29/2021 10:30 AM CDT Abdominal aortic aneurysm (AAA) without rupture (HC) Mycobacterium avium complex (HC) COLONOSCOPY 05/25/2021 10:27 AM CDT ANTI HCV Routine 05/18/2021 12:40 PM CDT Need for hepatitis C screening test from Last 3 Months or Most Recently Relevant to Health Maintenance Results * US ANKLE BRACHIAL INDEX BILATERAL (08/30/2024 9:51 AM GARBAGE COLLECTOR SUPERVISOR) Anatomical Region Laterality Modality ANKLES, ANKLE L, ANKLE R Ultraso und 08/30/2024 9:08 AM GARBAGE COLLECTOR SUPERVISOR Narrative 08/30/2024 6:09 PM GARBAGE COLLECTOR SUPERVISOR VASCULAR ULTRASOUND REPORT TREVIN KATE : 1955 Study Date: 08/30/2024 9:08:24 AM Age: 69 years Tech: BSG Gender: M Referring MD: LAWRENCE LOW Site: [facility] [place] Study performed: Lower extremity resting LALITA, (bilateral). Indication for study: Follow-up known PAD Study Quality: Good Other History: popliteal aneurysm TECHNIQUE: Lower/upper extremity arteries were examined per exam protocol by duplex ultrasound, color-flow and spectral Doppler. Peak systolic velocities (PSV), Doppler waveform quality, velocity ratios and vessel size in cm, were documented at protocol specific sites. Physiologic data including segmental pressures, ankle/brachial index (LALITA), digit PPG recordings, laser Doppler flowmetry, transcutaneous oximetry, and digit temperatures were documented at sites per exam protocol and test requirements. IMPRESSION: 1. Resting ankle-brachial index is normal on the right at 1.10 and is normal on the left at 1.15. COMPARISON: Compared to prior study 10-28-2018, there is no significant change. FINDINGS: +--------+ + + RIGHT Velocity cm/s Phasicity +--------+ + + MOLASSES PREPARER DST 53 multiphasic +--------+ + + RICH DST 24 multiphasic +--------+ + + DPA 29 multiphasic +--------+ + + +--------+ + + LEFT Velocity cm/s Phasicity +--------+ + + MOLASSES PREPARER DST 71 multiphasic +--------+ + + RICH DST 0 occluded +--------+ + + DPA 28 multiphasic +--------+ + + Criteria: Stenosis V. Ratio Mild <50% <2.0 Moderate 50-74% > or = 2.0 Severe 75-99% > or = 4.0 Occluded 100% no detectable flow Pressures +-----+ +--------+ +-----+ RIGHT (mmHg) LEFT (mmHg) +-----+ +--------+ +-----+ Index 146 Brachial 140 Index +-----+ +--------+ +-----+ 1.10 160 MOLASSES PREPARER 168 1.15 +-----+ +--------+ +-----+ 1.08 158 DPA 150 1.03 +-----+ +--------+ +-----+ Calderon Humphreys MD. Electronically signed on 08/30/2024 6:09:14 PM This study was performed and interpreted by a service accredited by the Intersocietal Accreditation Commission (IAC/Vascular), [email or web address]/vascular Report generated by [facility]. Final Procedure Note Calderon Humphreys MD - 08/30/2024 VASCULAR ULTRASOUND REPORT TREVIN KATE : 1955 Study Date: 08/30/2024 9:08:24 AM Age: 69 years Tech: BSMarivel Gender: M Referring MD: LAWRENCE LOW Site: [facility] [place] Study performed: Lower extremity resting LALITA, (bilateral). Indication for study: Follow-up known PAD Study Quality: Good Other History: popliteal aneurysm TECHNIQUE: Lower/upper extremity arteries were examined per exam protocol by duplexultrasound, color-flow and spectral Doppler. Peak systolic velocities(PSV), Doppler waveform quality, velocity ratios and vessel size in cm,were documented at protocol specific sites. Physiologic data includingsegmental pressures, ankle/brachial index (LALITA), digit PPG recordings,laser Doppler flowmetry, transcutaneous oximetry, and digit temperatureswere documented at sites per exam protocol and test requirements. IMPRESSION: 1. Resting ankle-brachial index is normal on the right at 1.10 and isnormal on the left at 1.15. COMPARISON: Compared to prior study 10-28-2018, there is no significant change. FINDINGS: +--------+ + + RIGHT Velocity cm/s Phasicity +--------+ + + MOLASSES PREPARER DST 53 multiphasic +--------+ + + RICH DST 24 multiphasic +--------+ + + DPA 29 multiphasic +--------+ + + +--------+ + + LEFT Velocity cm/s Phasicity +--------+ + + MOLASSES PREPARER DST 71 multiphasic +--------+ + + RICH DST 0 occluded +--------+ + + DPA 28 multiphasic +--------+ + + Criteria: Stenosis V. Ratio Mild <50% <2.0 Moderate 50-74% > or = 2.0 Severe 75-99% > or = 4.0 Occluded 100% no detectable flow Pressures +-----+ +--------+ +-----+ RIGHT (mmHg) LEFT (mmHg) +-----+ +--------+ +-----+ Index 146 Brachial 140 Index +-----+ +--------+ +-----+ 1.10 160 MOLASSES PREPARER 168 1.15 +-----+ +--------+ +-----+ 1.08 158 DPA 150 1.03 +-----+ +--------+ +-----+ Calderon Humphreys MD. Electronically signed on 08/30/2024 6:09:14 PM This study was performed and interpreted by a service accredited by theIntersocietal Accreditation Commission (IAC/Vascular),[email or web address] Report generated by [facility]. Final us Lawrence friend Result * ECHO TTE COMPLETE W CONTRAST (06/10/2024 11:52 AM CDT) AORTIC VALVE MEAN PG 4 mmHg EJECTION FRACTION 71 % LVEDD 3.5 cm EJECTION FRACTION 65 - 70% Anatomical Region Laterality Modality Ultrasound 06/10/2024 10:5 9 AM CDT Narrative 06/10/2024 4:41 PM CDT ECHOCARDIOGRAM TREVIN KATE : 1955 69 years Study Date: 06/10/2024 10:59:15 AM Gender: M BP: 114/73 mmHg Height: 173.00 cm BSA: 2.13 m Weight: 100.00 kg Tech: JHOAN Referring MD: AMOS WADE Site: [facility] Reading Location: Mobile OP Patient Location: Outpatient. Procedure: Color Doppler, Spectral Doppler and 2D w/ Contrast. Indication for study: CHF Cardiac Rhythm: Normal sinus.Study quality: Fair. Final Impressions: 1. LVEF estimate 60-65%. Normal LV size and wall thickness. 2. Normal RV size and global function. 3. No significant valvular abnormalities. 4. Normal RAP estimate. 5. Mildly dilated ascending aorta [4.2 cm]. 6. No LV thrombus [contrast study]. Chamber Sizes and Function No resting regional wall motion abnormality visualized. Left atrial size is normal. Right ventricular cavity size is normal, global systolic RV function is normal. The right atrium is normal. Right atrial area is 14 cm . The pulmonary artery is not well visualized. The sinus of Valsalva is normal for age/sex/bsa. The ascending aorta is dilated. Valves, RV Pressures and Diastolic Function The aortic valve is normal in structure and trileaflet, no stenosis and no regurgitation. The mitral valve is normal in structure, no mitral regurgitation. Indeterminate pattern of LV diastolic filling. The tricuspid valve is normal in structure. Tricuspid regurgitation is regurgitation is not evident. Unable to assess right ventricular systolic pressure. The pulmonic valve is not well visualized. No pulmonary regurgitation. TTE images do not appear adequate for transcather intervention with patient supine. Masses, Effusion, Shunts There is no pericardial effusion. The inferior vena cava is normal sized, respiratory size variation greater than 50%. No left to right shunting was detected by limited color flow Doppler interrogation of the interatrial septum. MEASUREMENTS AND CALCULATIONS 2-D Measurements and LV Function: LVID (d) 3.5 cm LV FS% (2D) 28 % LVID (s) 2.6 cm LVOT diameter 2.2 cm IVS (d) 1.3 cm HR 84 bpm LVPW (d) 1.1 cm LA Vol index 17 ml/m2 Ao Sinus 4.2 cm RA area 14 cm Asc Ao 4.2 cm RV Max 4C (d) 3.5 cm Diastology: Mitral Tissue Doppler E Peak 0.5 m/s e', Septum 0.08 m/s A Peak 0.8 m/s e', Lateral 0.12 m/s E/A 0.6 E/e' Average 5.06 DT 216 msec Aortic Valve: Vmax 1.3 m/s NORMA (V) 3.88 cm VTI 0.30 m NORMA (I) 3.29 cm LVOT V max 1.3 m/s Max PG 7 mmHg LVOT VTI 0.25 m Mean PG 4 mmHg SV 100 ml Dim Index 0.83 SV index 47 ml/m CO 8.4 l/min CI 3.9 l/min/m Mitral Valve: MVA 3.5 cm MV P 1/2 63 msec Tricuspid Valve and estimated PA pressures: TAPSE 2.2 cm Contrast documentation: 4 ml diluted Definity, lot #[id number], [facility]# [id number] was administered peripherally to enhance visualization of all left ventricular segments. . This study was interpreted by an [facility] accredited facility. Final Procedure Note Hill Arechiga MD - 06/10/2024 ECHOCARDIOGRAM TREVIN KATE : 1955 69 years Study Date: 06/10/2024 10:59:15 AM Gender: M BP: 114/73 mmHg Height: 173.00 cm BSA: 2.13 m Weight: 100.00 kg Tech: JHOAN Referring MD: AMOS WADE Site: [facility] [place] Location: Mobile OP Patient Location: Outpatient. Procedure: Color Doppler, Spectral Doppler and 2D w/ Contrast. Indication for study: CHF Cardiac Rhythm: Normal sinus.Study quality: Fair. Final Impressions: 1. LVEF estimate 60-65%. Normal LV size and wall thickness. 2. Normal RV size and global function. 3. No significant valvular abnormalities. 4. Normal RAP estimate. 5. Mildly dilated ascending aorta [4.2 cm]. 6. No LV thrombus [contrast study]. Chamber Sizes and Function No resting regional wall motion abnormality visualized. Left atrial sizeis normal. Right ventricular cavity size is normal, global systolic RVfunction is normal. The right atrium is normal. Right atrial area is 14cm . The pulmonary artery is not well visualized. The sinus of Valsalvais normal for age/sex/bsa. The ascending aorta is dilated. Valves, RV Pressures and Diastolic Function The aortic valve is normal in structure and trileaflet, no stenosis and noregurgitation. The mitral valve is normal in structure, no mitralregurgitation. Indeterminate pattern of LV diastolic filling. Thetricuspid valve is normal in structure. Tricuspid regurgitation isregurgitation is not evident. Unable to assess right ventricular systolicpressure. The pulmonic valve is not well visualized. No pulmonaryregurgitation. TTE images do not appear adequate for transcatherintervention with patient supine. Masses, Effusion, Shunts There is no pericardial effusion. The inferior vena cava is normal sized,respiratory size variation greater than 50%. No left to right shunting wasdetected by limited color flow Doppler interrogation of the interatrialseptum. MEASUREMENTS AND CALCULATIONS 2-D Measurements and LV Function: LVID (d) 3.5 cm LV FS% (2D) 28 % LVID (s) 2.6 cm LVOT diameter 2.2 cm IVS (d) 1.3 cm HR 84 bpm LVPW (d) 1.1 cm LA Vol index 17 ml/m2 Ao Sinus 4.2 cm RA area 14 cm Asc Ao 4.2 cm RV Max 4C (d) 3.5 cm Diastology: Mitral Tissue Doppler E Peak 0.5 m/s e', Septum 0.08 m/s A Peak 0.8 m/s e', Lateral 0.12 m/s E/A 0.6 E/e' Average 5.06 DT 216 msec Aortic Valve: Vmax 1.3 m/s NORMA (V) 3.88 cm VTI 0.30 m NORMA (I) 3.29 cm LVOT V max 1.3 m/s Max PG 7 mmHg LVOT VTI 0.25 m Mean PG 4 mmHg SV 100 ml Dim Index 0.83 SV index 47 ml/m CO 8.4 l/min CI 3.9 l/min/m Mitral Valve: MVA 3.5 cm MV P 1/2 63 msec Tricuspid Valve and estimated PA pressures: TAPSE 2.2 cm Contrast documentation: 4 ml diluted Definity, lot #[id number], [facility]#[id number] was administered peripherally to enhance visualization of allleft ventricular segments. . This study was interpreted by an IAC accredited facility. Final us Amos Wade MD ECHO ORD Final Resu lt * CT CHEST SCREENING LOW DOSE WO CONTRAST [[id number]] (09/22/2023 9:03 AM GARBAGE COLLECTOR SUPERVISOR) Anatomical Region Laterality Modality Computed Tomogra phy Impressions 09/22/2023 1:34 PM GARBAGE COLLECTOR SUPERVISOR Stable exam. Unchanged lobular nodule within the right lung which was previously biopsied. Decreased size of cavitary mass in the right upper documented as RALPH infection. LUNG-RADS CATEGORY: 2: Benign. RADIOLOGIST RECOMMENDATION: Continue annual screening with routine CT chest in 12 months. Please note that all CT scans at this facility use dose modulation, iterative reconstruction and/or weight-based dosing when appropriate to reduce radiation dose to as low as reasonably achievable. Dictated by: Yariel Early MD @09/22/2023 11:18:06 AM/CRL:grant Narrative 09/22/2023 1:34 PM GARBAGE COLLECTOR SUPERVISOR For Patients: As a result of the 21st Century Cures Act, medical imaging exams and procedure reports are released immediately into your electronic medical record. You may view this report before your referring provider. If you have questions, please contact your health care provider. CT CHEST SCREENING LOW DOSE WITHOUT CONTRAST, 09/22/2023 INDICATION: Lung cancer screening. History of smoking. High risk patient with greater than 20 pack-year smoking history. TECHNIQUE: Low-dose lung cancer screening non-contrast CT chest. Dose reduction techniques were used. COMPARISON: 07/18/2022. FINDINGS: NODULES: Stable lobular nodule within the right lung measuring 1.4 cm. Other nodular densities within the right lung are similar. LUNGS AND PLEURA: Cavitary mass with air-fluid level in the right lung apex is smaller measuring 7.8 x 2.8 cm. Emphysema. Fibrosis with bronchiectasis anterior left lung. He had MEDIASTINUM: Calcified pleural plaques. Dependent atelectasis. No enlarged lymph nodes. CORONARY ARTERY CALCIFICATION: Present. LIMITED UPPER ABDOMEN: Postop changes with artifact. MUSCULOSKELETAL: No fracture. us Amos Wade MD CT Final Resu lt * (ABNORMAL) LIPID PANEL (09/15/2023 2:44 PM GARBAGE COLLECTOR SUPERVISOR) Pathologist [facility] CHOLESTEROL,TOTAL 135 100 - 199 mg/dL 09/15/2023 10:32 PM GARBAGE COLLECTOR SUPERVISOR [facility] Comment: Cholesterol, Total Reference Ranges Desirable <200 mg/dL Borderline 200-239 mg/dL High >=240 mg/dL TRIGLYCERIDES 185(H) <150 mg/dL 09/15/2023 10:32 PM GARBAGE COLLECTOR SUPERVISOR [facility] HDL CHOLESTEROL 32(L) >40 mg/dL 10:32 PM GARBAGE COLLECTOR SUPERVISOR [facility] NON-HDL CHOLESTEROL 103 <145 mg/dl 09/15/2023 10:32 PM GARBAGE COLLECTOR SUPERVISOR [facility] CHOL/HDL RATIO 4.22 <4.50 09/15/2023 10:32 PM GARBAGE COLLECTOR SUPERVISOR [facility] LDL CHOLESTEROL 66 <=130 mg/dL 09/15/2023 10:32 PM GARBAGE COLLECTOR SUPERVISOR [facility] VLDL CHOLESTEROL 37(H) <=30 mg/dL 09/15/2023 10:32 PM GARBAGE COLLECTOR SUPERVISOR [facility] PROVIDER ORDERED STATUS RANDOM 09/15/2023 10:32 PM GARBAGE COLLECTOR SUPERVISOR [facility] Blood BLOOD SPECIMEN / Unknown Butterfly / Unknown 09/15/2023 2:44 PM GARBAGE COLLECTOR SUPERVISOR 09/15/2023 2:49 PM GARBAGE COLLECTOR SUPERVISOR us Amos Wade MD CHEMISTRY Final [facility]u [facility] [address] [place] [address], [place] * CTA CHEST ABDOMEN PELVIS (05/29/2021 10:30 AM CDT) Anatomical Region Laterality Modality Abdomen, Pelvis, AORTA, LIVER, SPLEEN, CHEST Computed Tomography Impressions 05/29/2021 2:47 PM CDT 1. Acute stable colonic diverticulitis. 2. Significant interval worsening in multiple right-sided pulmonary nodules in addition to the previously seen extensive nodules, and large nodular cavity in the right apex. Per report, patient has history of RALPH and this likely represents active worsening disease, although malignancy cannot be excluded. 3. Pleural calcification involving both the visceral and parietal pleura may be due to previous infection (granulomatous), pleurodesis, hemorrhage or possibly asbestos. 4. Pericardial calcification likely due to chronic pericarditis. 5. Severe emphysema. 6. Worsening infrarenal or pararenal abdominal aortic aneurysm measuring 4.6 x 4.2 cm. 7. Very extensive clips in the retroperitoneum compatible with extensive lymphadenectomy from testicular cancer. Please note that all CT scans at this facility use dose modulation, iterative reconstruction and/or weight-based dosing when appropriate to reduce radiation dose to as low as reasonably achievable. Frantz Jernigan M.D. Interventional Radiology/Diagnostic Radiology (IR/DR) [email or web address] MIHAI/ankita Narrative 05/29/2021 2:47 PM CDT For Patients: As a result of the Century Cures Act, medical imaging exams and procedure reports are released immediately into your electronic medical record. You may view this report before your referring provider. If you have questions, please contact your health care provider. CTA CHEST, ABDOMEN AND PELVIS 05/29/2021 CLINICAL HISTORY: Abdominal aortic aneurysm, mycobacterium avium complex. COMPARISON: 04/20/2020 and 10/11/2019. TECHNIQUE: CTA of the chest, abdomen and pelvis. FINDINGS: Interval increase in infrarenal abdominal aortic aneurysm measuring approximately 4.6 x 4.2 cm compared with 4.3 x 3.8 cm on the previous examination. This may actually be a pararenal abdominal aortic aneurysm, although the severe streak artifact generated by the adjacent retroperitoneal clips which are very extensive and most likely related to previous extensive lymphadenectomy in the retroperitoneum. There is marked mural irregularity/thrombus within the abdominal aortic aneurysm sac. No periaortic straining or fluid. No noncontrast scan obtained to look for intramural hemorrhage. The celiac artery and SMA appear patent. Arterial phase imaging limits evaluation of solid organs and bowel. Noncirrhotic liver morphology. Reflux of contrast into the hepatic veins which are somewhat distended. Low attenuation lesions, probably cysts, are stable within the liver. The spleen is normal in size. No obvious pancreatic abnormality. No bowel obstruction. Adrenal glands are unremarkable. Colonic diverticulosis and there is inflammatory stranding in the sigmoid colon (see image 556 of series 4, and image 46, series 5) of the coronal compatible with acute diverticulitis. No hydronephrosis. Symmetric enhancement of the kidneys. Cysts are seen within bilateral kidneys. No free intraperitoneal air or fluid. Moderate prostatic enlargement. Urinary bladder appears unremarkable. Mild ectasia of the ascending thoracic aorta measuring up to 4.0 cm. Somewhat limited evaluation at the aortic root due to motion. No descending thoracic aorta aneurysm. No dissection. No axillary lymphadenopathy. Large cavity in the right lung apex with thick nodular tissue measuring approximately 10.0 x 4.6 cm without significant change. Mild bronchiectasis is seen throughout the right lung and slightly less notable in the left lung. Severe emphysema. Significant increase in a large nodule along the minor fissure measuring 16 mm compared with 10 mm on the previous (see image 158, series 4). A nodule in the right middle lobe measures 15 mm on image 158, stable. Marked increase in nodules in the anterior portion of the right lower lobe measuring up to 25 mm on image 209. Multiple calcified nodules in the right hilum. Calcification along the pericardium compatible with chronic pericarditis. Coronary artery calcifications. Coronary artery stent. Multiple prominent nodules in the right peritracheal region, subcarinal and right hilar region, similar to previous although some are maybe 1-2 mm larger. Calcification along the right pleura may be due to previous pleurodesis or hemorrhage. No aggressive appearing osseous lesion. us Amos Wade MD CT Final Resu lt * COLONOSCOPY (05/25/2021 10:27 AM CDT) 05/25/2021 10:2 7 AM CDT Narrative Transcriptions Noman Haro MD - 05/25/2021 11:52 AM CDT Patient Name: Trevin Kate Procedure Date: 05/25/2021 Gender: Male Date of : 1955 Admit Type: Outpatient Procedure: Colonoscopy Proceduralist: Noman Haro MD , Olga Salgado, RN(Nurse) Indications/Pre-Op Diagnosis: Screening for colorectal malignant neoplasm, Last colonoscopy: March 2011 Medications: Fentanyl 150 micrograms IV, Midazolam 4 mgIV, The level of sedation administered wasmoderate Procedure Description: The patient had risks, benefits and alternatives explained to andgave informed consent. The patient had a stable cardiopulmonary status and judged an adequate candidate for conscious sedation. The Colonoscope was passed through the anus and advanced to thececum, identified by appendiceal orifice and ileocecal valve. Thecolonoscopy was performed without difficulty. The patient tolerated the procedure well. The quality of the bowel preparation was good. The ileocecal valve, appendiceal orifice, and rectum were photographed. Complications: No immediate complications. Estimated Blood Loss & Specimen: Estimated blood loss: none. Specimen collected - Yes and sent to Laboratory Findings: The perianal and digital rectal examinations were normal. A 4 mm polyp was found in the transverse colon. The polyp wassessile. The polyp was removed with a cold snare. Resection and retrieval were complete. Three sessile polyps were found in the transverse colon. The polypswere 2 to 3 mm in size. These polyps were removed with a cold biopsyforceps. Resection and retrieval were complete. Multiple small and large-mouthed diverticula were found in thesigmoid colon and descending colon. There was narrowing of the colon in association with the diverticular opening. The colon (entire examined portion) was significantly redundant. A diffuse area of mild melanosis was found in the entire colon. The exam was otherwise without abnormality. Impressions/Post-Op Diagnosis: - One 4 mm polyp in the transverse colon, removed with a cold snare. Resected and retrieved. - Three 2 to 3 mm polyps in the transverse colon, removed with a cold biopsy forceps. Resected and retrieved. - Severe diverticulosis in the sigmoid colon and in the descending colon. There was narrowing of the colon in association with the diverticular opening. - Redundant colon. - Melanosis in the colon. - The examination was otherwise normal. Recommendation: - Patient has a contact number available for emergencies. The signsand symptoms of potential delayed complications were discussed with the patient. Return to normal activities tomorrow. Written discharge instructions were provided to the patient. - Resume previous diet. - Continue present medications. - Await pathology results. - Repeat colonoscopy is recommended. The colonoscopy date will be determined after pathology results from today's exam become available for review. - For future colonoscopy the patient will require an extended preparation, Peg 8L. If there are any questions, please contact the fish and game club manager. Moderate Sedation: Moderate (conscious) sedation was administered by the endoscopy nurse and supervised by the endoscopist. The following parameters were monitored: oxygen saturation, heart rate, respiratory rate, blood pressure, adequacy of pulmonary ventilation and reponse to care. Please refer to the patient's medical record flowsheets and nursing notes for moderate sedation details. Total physician intraservice time was 39 minutes. Noman Haro MD 05/25/2021 11:52:30 AM This report has been signed electronically. Note Initiated On: 05/25/2021 10:27 AM Procedure Code(s): --- Professional --- 44464, Colonoscopy, flexible; with removalof tumor(s), polyp(s), or other lesion(s) bysnare technique 06907, 59, Colonoscopy, flexible; withbiopsy, single or multiple Diagnosis Code(s): --- Professional --- K63.5, Polyp of colon Z12.11, Encounter for screening formalignant neoplasm of colon K63.89, Other specified diseases ofintestine K57.30, Diverticulosis of large intestine without perforation or abscess withoutbleeding Q43.8, Other specified congenitalmalformations of intestine CPT copyright 2020 [employer]. All rights reserved. The codes documented in this report are preliminary and upon partnership development manager reviewmay be revised to meet current compliance requirements. Scope In: 11:05:44 AM Scope Withdrawal Time 0 hours 19 minutes 0 seconds Scope Out: 11:42:06 AM us Noman Haro MD PROCEDURE ORD Final Res ult * ANTI HCV (05/18/2021 12:40 PM CDT) HEPATITIS C ANTIBODY Non-React candy Non-React candy 05/18/2021 10:37 PM CDT [facility] Comment:Antibodies to HCV no t detected; does not exclude the possibility of exposure to HCV. Blood BLOOD SPECIMEN / Unknown Butterfly / Unknown 05/18/2021 12:40 PM CDT 05/18/2021 12:40 PM CDT us Amos Wade MD SEND OUTS Final Resu lt [facility] [address] [place] [address], [place] from Last 3 Months or Most Recently Relevant to Health Maintenance Insurance MEDICARE PART B HB ONLY MEDICARE PART A HB ONLY [place] BLUE HB ONLY [place] BLUE MR PB ONLY Advance Directives * Full Code (Latest Code Status on File) Date Activated Date Inactivated Comments 06/06/2011 8:16 AM 06/08/2011 11:50 AM * Full Code Date Activated Date Inactivated Comments 05/30/2010 9:35 PM 06/02/2010 5:59 PM Care Teams Child Care Education Coordinator Relationship Specialty Start Date End Date Amos Wade MD [address] [place] [address] PCP - General Family Practice 07/11/15 Luis Leyva MD Rheumatology Rheumatology 09/12/11 [place] [address] [place] [address] Pulmonology Pulmonary Medicine 07/06/21
--- NOTE | 2024-09-01 18:48 | CRLHL7_ITS ---
For Patients: As a result of the Cures Act, medical imaging exams and procedure reports are released immediately into your electronic medical record. You may view this report before your referring provider. If you have questions, please contact your health care provider. INDICATION: Fever. Cough. COMPARISON: 05/25/2024, chest CT 05/26/2024. TECHNIQUE: 2 views. FINDINGS: Medical Devices: None. Lung Volumes: Adequate inspiration. Rightward deviation of the trachea is consistent with indirect evidence of volume loss involving the right lung. Lungs: Peripheral left basilar airspace opacity consistent with pneumonia. The previously documented cavitary lesion of the right lung apex is slightly smaller compared to 05/25/2024. Emphysematous changes noted at the periphery of this lesion on the frontal view of the chest as on the prior examination. Pleura and Pleural spaces: Chronic blunting of the right lateral costophrenic angle is consistent with pleural fibrosis. Pleural calcifications are demonstrated to better advantage on the prior CT of 05/26/2024. no pneumothorax. Mediastinum: Stable cardiomediastinal silhouette. Bony Thorax and Soft Tissues: No significant incidental findings. IMPRESSION: 1. Peripheral left basilar airspace opacity consistent with pneumonia. 2. The previously documented cavitary lesion of the right lung apex is slightly smaller compared to 05/25/2024. Emphysematous changes noted at the periphery of this lesion on the frontal view of the chest as on the prior examination. Please refer to the report of the chest CT examination dated 05/26/2024 for further description. Dictated by Kennedy Ruelas MD @ 09/01/2024 7:28:22 PM (Electronically Signed)
--- NOTE | 2024-09-01 18:51 | ED_ITS ---
HPI - General Adult General Date Seen: 09/01/24 Chief complaint: Shortness of Breath/Dyspnea Stated complaint: Respiratory issues Time Seen by Provider: 09/01/24 18:47 History of Present Illness HPI narrative: 69-year-old gentleman presenting to the ER today by EMS from his home for evaluation of shortness of breath and hypoxia. Per report, his is currently hospitalized for influenza A. The patient has a past medical history of coronary disease with previous UT and stent. Previous cardiac arrest. Hypertension, hyperlipidemia, previous pneumonia. COPD. He is an active smoker. When asked him how much he smokes he says, ?as much as I can. ? He smokes cigarettes, not marijuana He says he has been sick for about 10 days. Symptoms started with cough, with a lot of gurgling in his chest but no production of sputum. Along with that has had fever, chills, weakness. He has had poor appetite. No vomiting. He says he really has not had much to eat for 6 or 7 days. Today he was feeling weaker and more short of breath so called 911. History from paramedics... When paramedics arrived they found him to be acutely short of breath. Sats were 68% on room air. He received 1 DuoNeb and sats came up to the 70s or 80s. They placed him on BiPAP because of hypoxia and help with his work of breathing. He had a little bit of anxiety with the BiPAP mask so they gave 1 mg of Ativan. EKG was obtained and showed AFib with RVR but no definite ischemia. On BiPAP his sats echo to the 90s work of breathing is improved, but not normally Patient denies any chest pain. He does have a cough that sounds gurgly to him but is nonproductive of sputum. He has felt feverish and warm. He is not having any chest pain. He is not feeling any palpitations. He does not recall any previous history of AFib. He does recall that once he asked his doctor to check him for AFib (based on a TV commercial) and he apparently did not have AFib. He does have a history of coronary disease with stents. He says his med list is in the computer and has not changed. Related Data Home Medications ?Medication ?Instructions ?Recorded ?Confirmed albuterol sulfate 90 mcg/actuation 1 - 2 puff inhalation Q4H PRN 05/25/24 05/25/24 aerosol inhaler aspirin 81 mg tablet,delayed 81 mg PO DAILY 05/25/24 05/25/24 release budesonide-formoterol HFA 160 2 puff inhalation BID 05/25/24 05/25/24 mcg-4.5 mcg/actuation aerosol inhaler duloxetine 30 mg capsule,delayed 30 mg PO DAILY 05/25/24 05/25/24 release duloxetine 60 mg capsule,delayed 60 mg PO DAILY 05/25/24 05/25/24 release losartan 50 mg-hydrochlorothiazide 1 tab PO DAILY 05/25/24 05/25/24 12.5 mg tablet metoprolol succinate 50 mg 50 mg PO DAILY 05/25/24 05/25/24 tablet,extended release 24 hr multivitamin (Daily Multi-Vitamin 1 tab PO DAILY 05/25/24 05/25/24 tablet) psyllium 1 tbsp PO DAILY 05/25/24 05/25/24 rosuvastatin 5 mg tablet 5 mg PO DAILY 05/25/24 05/25/24 sumatriptan succinate 100 mg See Rx Instructions PO .COMPLEX 05/25/24 05/25/24 tablet (Imitrex) Previous Rx's ?Medication ?Instructions ?Recorded cefpodoxime 200 mg tablet 200 mg PO BID #10 tabs 05/27/24 ipratropium 0.5 mg-albuterol 3 mg 3 ml inhalation Q4H PRN #180 mL 05/27/24 (2.5 mg base)/3 mL nebulization soln nebulizer and compressor #1 ea 05/27/24 prednisone 20 mg tablet 20 mg PO DAILYWM #16 tabs 05/27/24 prednisone 5 mg tablet 5 mg PO DAILY #5 tabs 05/27/24 Allergies Allergy/AdvReac Type Severity Reaction Status Date / Time pregabalin (From Lyrica) Allergy Mild Verified 05/26/24 09:10 [facility] Medical History (Updated 09/02/24 @ 00:34 by José Borjas MD) Cardiac arrest ?I46.9 - Cardiac arrest, cause unspecified (ICD-10) Pulmonary nodule ?R91.1 - Solitary pulmonary nodule (ICD-10) Peripheral arterial disease ?I73.9 - Peripheral vascular disease, unspecified (ICD-10) JIMY (obstructive sleep apnea) ?G47.33 - Obstructive sleep apnea (adult) (pediatric) (ICD-10) Thoracic back pain ?M54.6 - Pain in thoracic spine (ICD-10) Fibromyalgia ?M79.7 - Fibromyalgia (ICD-10) Migraine ?G43.909 - Migraine, unspecified, not intractable, without status migrainosus (ICD-10) Mycobacterium avium complex ?A31.0 - Pulmonary mycobacterial infection (ICD-10) Testicular cancer ?C62.90 - Malignant neoplasm of unspecified testis, unspecified whether descended or undescended (ICD-10) Tobacco abuse ?Z72.0 - Tobacco use (ICD-10) MDD (major depressive disorder) ?F32.9 - Major depressive disorder, single episode, unspecified (ICD-10) COPD (chronic obstructive pulmonary disease) ?J44.9 - Chronic obstructive pulmonary disease, unspecified (ICD-10) Heart failure with preserved ejection fraction ?I50.30 - Unspecified diastolic (congestive) heart failure (ICD-10) Abdominal aneurysm ?I71.40 - Abdominal aortic aneurysm, without rupture, unspecified (ICD-10) CAD (coronary artery disease) ?I25.10 - Atherosclerotic heart disease of [place] coronary artery without angina pectoris (ICD-10) Hypertension ?I10 - Essential (primary) hypertension (ICD-10) Hyperlipidemia ?E78.5 - Hyperlipidemia, unspecified (ICD-10) Social History What is your current living situation?: I presently have a place to live Problems where you live: no known problems Problems where you live details: no known problems In the past 12 months, utilities in danger of being shut off: no In past 12 months, lack of transportation kept you from medical appts, meetings, work, or getting things needed for daily living: no In the past 12 mos, have been you worried that your food would run out before you had money to buy more?: never true In the past 12 mos, the food you bought just didn't last and you didn't have money to buy more?: never true Highest level of school completed/degree received: 12th grade, no diploma Smoking Status: Current every day smoker What tobacco products do you use: cigarettes Smoking packs per day: 1.5 Smoking cigarettes per day: 30.0 Years smoked: 52 Smoking pack-years: 78.00 How often do you have a drink containing alcohol: never How often do you have six or more drinks on one occasion: Never AUDIT-C Alcohol total score: 0 Non-prescribed substance use: denies use Caffeine: Yes How often does anyone, including family, friends and others, physically hurt you : never How often does anyone, including family, friends and others, insult or talk down to you: never How often does anyone, including family, friends and others, threaten you with harm: never How often does anyone, including family, friends and others, scream or curse at you: never Exam Narrative: Exam Narrative: Primary Survey: A- arrives on BiPAP. He is alert and answers questions and follows commands appropriately. Difficult for him to speak through the EMS BiPAP mask. We removed it to recheck his oxygenation. He was breathing easily so we kept the BiPAP off patent. Speaking clearly. Phonation normal. No stridor. B- he is mildly tachypneic but not in distress. No tripoding. No accessory muscle use. Lung sounds are coarse with rales and wheezes in all lung watkins C- irregularly irregular and tachycardic, appears to have AFib with rates in the 130s on the monitor no active bleeding. Blood pressure stable. Symmetric pulses and cap refill in 4 extremities. No JVD D- alert and oriented x3. GCS 15. No focal deficits. Constitutional: Appears well-developed and well-nourished. Alert. Conversant and actually joking, despite his shortness of breath. Non toxic. HENT: Head: Atraumatic. Nose: Nose normal. Mouth/Throat: Oral mucosa is clear but dry, not desiccated or cracked no trismus. Pharynx normal. Tonsils symmetric. No tonsillar enlargement, erythema, or exudate. Eyes: Conjunctivae normal. EOM normal. Pupils equal, round, and reactive to light. No scleral icterus. Neck: Normal range of motion. Neck supple. No tracheal deviation present. No JVD Cardiovascular: Tachycardic, irregularly irregular rib rhythm. No gallop. No friction rub. No murmur heard. Symmetric radial artery pulses . Normal cap refill times or extremities Pulmonary/Chest: Effort normal. No stridor. No respiratory distress. No wheezes. No rales. No rhonchi . No tenderness. Abdominal: Soft.No distension. No mass. No tenderness. No rebound. No guarding. Musculoskeletal: RUE: Normal range of motion. No tenderness. No deformity LUE: Normal range of motion. No tenderness. No deformity RLE: Normal range of motion. No edema. No tenderness. No deformity LLE: Normal range of motion. No edema. No tenderness. No deformity Neurological: Alert and oriented to person, place, and time. Normal strength. CN II-VII intact. No sensory deficit. GCS eye subscore is 4. GCS verbal subscore is 5. GCS motor subscore is 6. Normal coordination Skin: Skin is warm and dry. No rash noted. No pallor. Normal capillary refill. Psychiatric: Normal mood. Normal affect. A very polite. Const: Vital Signs, click to edit/add: Vital Signs - 24 hr 09/01/24 18:36 09/01/24 18:48 09/01/24 19:07 Temperature 96.9 F L Pulse Rate 127 H Pulse Rate [Left P ulse Oximeter] 126 H Respiratory Rate 28 H 33 H Blood Pressure Blood Pressure [Le ft Upper Arm] 128/104 H Pulse Oximetry 90 86 L Oxygen Delivery Me thod Room Air Nasal Cannula Nasal Cannula Oxygen Flow Rate 2 2 09/01/24 19:20 09/01/24 19:21 09/01/24 19:40 Temperature Pulse Rate 117 H 117 H 121 H Pulse Rate [Left P ulse Oximeter] Respiratory Rate 23 28 H 24 Blood Pressure 129/112 H Blood Pressure [Le ft Upper Arm] Pulse Oximetry 96 97 90 Oxygen Delivery Me thod Nasal Cannula Nasal Cannula Nasal Cannula Oxygen Flow Rate 2 2 2 09/01/24 19:41 09/01/24 20:00 09/01/24 20:01 Temperature Pulse Rate 124 H 119 H 104 H Pulse Rate [Left P ulse Oximeter] Respiratory Rate 32 H 33 H 26 H Blood Pressure 141/109 H 116/96 H Blood Pressure [Le ft Upper Arm] Pulse Oximetry 91 92 92 Oxygen Delivery Me thod Nasal Cannula Nasal Cannula Nasal Cannula Oxygen Flow Rate 2 2 2 09/01/24 20:02 09/01/24 20:20 09/01/24 20:21 Temperature Pulse Rate 121 H 110 H 113 H Pulse Rate [Left P ulse Oximeter] Respiratory Rate 28 H 28 H 29 H Blood Pressure 97/83 Blood Pressure [Le ft Upper Arm] Pulse Oximetry 92 90 90 Oxygen Delivery Me thod Oxygen Flow Rate 09/01/24 20:32 09/01/24 20:34 09/01/24 20:40 Temperature Pulse Rate 97 107 H 114 H Pulse Rate [Left P ulse Oximeter] Respiratory Rate Blood Pressure 95/82 109/92 H Blood Pressure [Le ft Upper Arm] Pulse Oximetry 88 90 89 Oxygen Delivery Me thod Oxygen Flow Rate 09/01/24 20:41 09/01/24 21:01 09/01/24 21:02 Temperature Pulse Rate 109 H 123 H Pulse Rate [Left P ulse Oximeter] Respiratory Rate Blood Pressure 101/83 99/82 Blood Pressure [Le ft Upper Arm] Pulse Oximetry 90 91 Oxygen Delivery Me thod Oxygen Flow Rate 09/01/24 21:20 09/01/24 21:23 09/01/24 21:24 Temperature Pulse Rate 107 H 124 H 117 H Pulse Rate [Left P ulse Oximeter] Respiratory Rate Blood Pressure 118/78 Blood Pressure [Le ft Upper Arm] Pulse Oximetry 89 87 L 89 Oxygen Delivery Me thod Oxygen Flow Rate 09/01/24 21:40 09/01/24 21:41 09/01/24 21:42 Temperature Pulse Rate 129 H 108 H 116 H Pulse Rate [Left P ulse Oximeter] Respiratory Rate Blood Pressure 116/91 H Blood Pressure [Le ft Upper Arm] Pulse Oximetry 90 91 91 Oxygen Delivery Me thod Oxygen Flow Rate 09/01/24 22:00 09/01/24 22:01 09/01/24 22:20 Temperature Pulse Rate 127 H 125 H 115 H Pulse Rate [Left P ulse Oximeter] Respiratory Rate Blood Pressure 113/96 H Blood Pressure [Le ft Upper Arm] Pulse Oximetry 90 90 89 Oxygen Delivery Me thod Oxygen Flow Rate 09/01/24 22:21 09/01/24 22:24 09/01/24 22:40 Temperature Pulse Rate 121 H 119 H 98 Pulse Rate [Left P ulse Oximeter] Respiratory Rate Blood Pressure 98/77 109/92 H Blood Pressure [Le ft Upper Arm] Pulse Oximetry 89 77 L 89 Oxygen Delivery Me thod Oxygen Flow Rate 09/01/24 22:41 09/01/24 23:00 09/01/24 23:01 Temperature Pulse Rate 100 76 75 Pulse Rate [Left P ulse Oximeter] Respiratory Rate Blood Pressure 111/93 H 111/83 Blood Pressure [Le ft Upper Arm] Pulse Oximetry 91 91 91 Oxygen Delivery Me thod Nasal Cannula Nasal Cannula Oxygen Flow Rate 3 3 09/01/24 23:20 09/01/24 23:21 09/01/24 23:40 Temperature Pulse Rate 73 76 73 Pulse Rate [Left P ulse Oximeter] Respiratory Rate Blood Pressure 99/78 Blood Pressure [Le ft Upper Arm] Pulse Oximetry 91 92 91 Oxygen Delivery Me thod Nasal Cannula Nasal Cannula Nasal Cannula Oxygen Flow Rate 3 3 3 09/01/24 23:41 09/02/24 00:36 09/02/24 00:38 Temperature 96.5 F L Pulse Rate 76 Pulse Rate [Left P ulse Oximeter] Respiratory Rate 20 Blood Pressure 108/80 Blood Pressure [Le ft Upper Arm] Pulse Oximetry 91 91 Oxygen Delivery Me thod Nasal Cannula Nasal Cannula Nasal Cannula Oxygen Flow Rate 3 3 3 Course Course ED Course: Arrived by EMS to ER stable 1. History obtained from patient and the EMS. He arrived on BiPAP but was breathing easily, able to talk and answer questions from wonders mask. We talk off the BiPAP mask for initial assessment he was breathing easily. We were able to transition him off BiPAP and put him on nasal cannula. Lung sounds were somewhat wheezy and also course especially in the left base. Additional albuterol neb ordered. Solu-Medrol ordered Chest x-ray confirms a left lower lobe pneumonia. Also an abnormality in the right upper lung which per Radiology is a chronic, improving, cavitary lesion Overall was improved, sats in the low 90s. Has atrial fibrillation with rapid ventricular response. Rates in the 120s and 130s. Blood pressure normal. He is not feeling palpitations so unknown if this is new onset, probably chronic or subacute. Would not be a good candidate for cardioversion due to stroke risk. Suspect that he probably needs his tachycardia support cardiac output so will initiate IV fluids rather than rate control. Reevaluation(s) Reevaluation #1: Patient moved from ER stable want to ER stable to due to the arrival of the 2nd critical patient. Patient was overall doing much better. Had received 1.5 L of saline in addition to fluids with antibiotics. Presumed possible sepsis with left lower lobe pneumonia. Heart rate persistently in the 120s and 130s. Really has not changed after fluids. Work of breathing is little bit worse and repeat lung exam reveals much more coarse lung sounds at both bases. Concerning for possible evolving pulmonary edema. I had the nurses stop the infusion of his fluids. He had completed 1.5 L of saline was now receiving the beginning of a L of lactated Ringer's. We repeated a stat portable chest x-ray which does show signs of worsening bibasilar opacities was I think represent evolving pulmonary edema, likely by his fluid resuscitation. Patient was more hypoxic with sats dipping down into the 80s. I turned up his oxygen to 4 L and we repositioned him to sitting up. Breathing was better and sats came up to the 90s. He was a bit more drowsy and I was concerned about possible worsening CO2 retention. We had repeat labs including repeat VBG which showed stable pH and pCO2. Mental status is improved and he was protecting his airway at this point. Therefore will hold off on BiPAP. With evolving CHF we stopped his IV fluids. We administered Cardizem 10 mg IV for gentle rate control. With this the patient converted from some AFib to sinus rhythm in the 70s. Blood pressure remains stable. I ordered 20 mg of IV Lasix to help correct his pulmonary edema. At this point he is oxygenating adequately on nasal cannula so would hold off on CPAP or BiPAP. Vital Signs Vital signs: Initial Vital Signs Temperature 96.9 F L 09/01/24 18:36 Temperature Source Temporal Artery Scan 09/01/24 18:36 Pulse Rate 126 H 09/01/24 18:36 Pulse Rhythm Regular 09/01/24 18:36 Respiratory Rate 28 H 09/01/24 18:36 Respiratory Effort Spontaneous, Labored, Short of Breath, Pursed Lip 09/01/24 18:36 Respiratory Depth Shallow 09/01/24 18:36 Respiratory Pattern Normal, Tachypnea 09/01/24 18:36 Blood Pressure 128/104 H 09/01/24 18:36 Blood Pressure Mean 112 H 09/01/24 18:36 Blood Pressure Position Semi-Fowlers 09/01/24 18:36 Pulse Oximetry 90 09/01/24 18:36 Oxygen Delivery Method Room Air 09/01/24 18:36 Vital Signs Temperature 96.9 F L 09/01/24 18:36 Pulse Rate 126 H 09/01/24 18:36 Respiratory Rate 28 H 09/01/24 18:36 Blood Pressure 128/104 H 09/01/24 18:36 Pulse Oximetry 90 09/01/24 18:36 Oxygen Delivery Method Room Air 09/01/24 18:36 Temperature 96.5 F L 09/01/24 23:41 Pulse Rate 76 09/01/24 23:41 Respiratory Rate 20 09/02/24 00:38 Blood Pressure 108/80 09/01/24 23:41 Pulse Oximetry 91 09/02/24 00:38 Oxygen Delivery Method Nasal Cannula 09/02/24 00:38 Oxygen Flow Rate 3 09/02/24 00:38 Medications Administered Medications: Discontinued Medications Generic Name Dose Route Start Last Admin Trade Name Freq PRN Reason Stop Dose Admin Albuterol 2.5 mg 09/01/24 18:47 09/01/24 19:16 Albuterol Sulfate 2.5 Mg/3 Ml Vial.Neb NEB 09/01/24 18:48 2.5 mg ONCE ONE Administration Aspirin 162 mg 09/01/24 18:47 09/01/24 19:15 Aspirin 81 Mg Tab.Chew PO 09/01/24 18:48 162 mg ONCE ONE Administration Diltiazem HCl 10 mg 09/01/24 22:15 09/01/24 22:22 Diltiazem 5 Mg/Ml Inj IVP 09/01/24 22:16 10 mg ONCE ONE Administration Furosemide 20 mg 09/02/24 00:25 09/02/24 00:31 Furosemide 10 Mg/Ml Inj IVP 09/02/24 00:26 20 mg ONCE ONE Administration Azithromycin 500 mg/ Sodium 255 mls @ 255 mls/hr 09/01/24 18:47 09/01/24 20:41 Chloride IVPB 09/01/24 18:48 Infused ONCE ONE Infusion Sodium Chloride 1,000 mls @ 1,000 mls/hr 09/01/24 19:00 09/01/24 21:00 0.9 % Sodium Chloride 1000 Ml IV 09/01/24 19:59 Infused .Q1H MARISELA Infusion Ceftriaxone Sodium 1 gm/ 100 mls @ 200 mls/hr 09/01/24 18:47 09/01/24 19:41 Sodium Chloride IVPB 09/01/24 18:48 Infused ONCE ONE Infusion Sodium Chloride 1,000 mls @ 1,000 mls/hr 09/01/24 21:30 09/01/24 22:00 0.9 % Sodium Chloride 1000 Ml IV 09/01/24 22:29 Infused .Q1H MARISELA Infusion Lactated Ringer's 500 mls @ 500 mls/hr 09/01/24 22:15 09/01/24 23:08 Lactated Ringers 500 Ml IV 09/01/24 23:14 0 mls/hr .Q1H ONE Infusion Methylprednisolone Sodium Succinate 125 mg 09/01/24 18:47 09/01/24 19:20 Methylprednisolone Sod Succ 62.5 Mg/Ml (125) IVP 09/01/24 18:48 125 mg ONCE ONE Administration Oseltamivir Phosphate 75 mg 09/01/24 20:00 09/01/24 20:15 Oseltamivir Phosphate 75 Mg Capsule PO 09/01/24 20:01 75 mg ONCE ONE Administration Medical Decision Making MDM Narrative Medical decision making narrative: 1. Pulmonary. Patient called 911 with recent respiratory illness. Significantly hypoxic requiring nebs and BiPAP by EMS en route. By the time he arrived here in the ER sats were improved and we were able to get him off BiPAP and place him on nasal cannula to keep sats in the 90s. Work of breathing was much improved after nebs given by EMS. Will treat COPD with additional nebs and IV steroids here in the ER. Initial VBG shows respiratory alkalosis with a pH of 7.452. No CO2 retention. Later on in his ER course he had worsening respiratory status. We did repeat VBG which looks stable. Is positive for influenza. Probably has had it for more than a week. However given severity of illness, was Started on Tamiflu here in the ER. Chest x-ray showed subtle right basilar infiltrates in more dense left lower lobe infiltrate. Blood cultures obtained. Started on IV antibiotics for community-acquired pneumonia. Unclear if this is a true bacterial pneumonia or influenza pneumonia. Also Tamiflu for influenza. 2. Cardiac. EKG and monitor confirm AFib with RVR. Patient is not feeling palpitations so we do not know if this is new onset. Although he was tachycardic, clinically he appeared dehydrated so we administered IV fluids try to bring his rate down, rather than AV berenice blockers. We administered 1.5 L of saline. He had improvement in his blood pressure. Heart rate remained elevated in the 120s. I ordered an additional L of crystalloid- lactated Ringer's. While this was infusing the patient had a worsening in his respiratory status. More hypoxic, sats in the 80s on room air. Persistent AFib. We re-evaluated. Lung sounds more coarse with rales in both bases. Reposition to sitting up. I had the nurses stop his IV crystalloid infusion. I placed orders to put him back on BiPAP but actually his sats came up with nasal cannula so did not require positive pressure. Portable chest x-ray confirmed evolving pulmonary edema, likely from our fluid infusion. Lasix 20 mg IV ordered. To help correct his AFib with RVR we administered a small dose of diltiazem 10 mg IV. With this he converted back to sinus rhythm. Repeat EKG confirms sinus rhythm with a rate of 85 and occasional premature ventricular complexes. Initial and repeat troponins are normal. EKG shows no definite ischemia. Nonspecific T-wave inversions. Given his episode of AFib, Will need anticoagulation for stroke prophylaxis per . INR 1.29 hospitalist Has a history of coronary artery disease. EKG shows no definite ischemia. Troponin is normal. 3. ID has left lower lobe infiltrate. Either influenza versus community- acquired pneumonia. White count 11. Blood culture pending. With tachycardia, fever, hypoxia would meet sepsis criteria. Blood culture pending. IV antibio tics administered. Venous lactic acid is 3.4, trending down to 2.6, then down to 2.1. We administered approximately 1.5 L of crystalloid were this patient developed CHF and we stopped his crystalloid infusion. Lasix administered. 4. BUN elevated at 39, creatinine 0.7. Suspect prerenal. 5. White count 11.45, likely elevated from infection. Hemoglobin is 20. May have underlying polycythemia versus hemoconcentration from dehydration. Lab Data Labs: Lab Results 09/01/24 09/01/24 09/01/24 Range/Units 18:50 21:06 21:22 WBC 11.45 H (4.50-11.00) K/uL RBC 6.05 H (4.30-5.90) m/uL Hgb 20.0 H (13.5-17.5) gm/dL Hct 59.4 H (37.0-53.0) % MCV 98 (80-100) fL MCH 33 (26-34) pg MCHC 34 (32-36) gm/dL RDW Coeff of Yelena 13.6 (11.5-15.5) % Plt Count 141 (140-440) K/uL Neut % (Auto) 79.1 H (42.0-72.0) % Lymph % (Auto) 11.4 L (20-44) % Childress % (Auto) 8.9 (0.0-11.0) % Eos % (Auto) 0.0 (0.0-7.0) % Baso % (Auto) 0.3 (0.0-3.0) % Neut # (Auto) 9.10 H (1.7-7.0) K/uL Lymph # (Auto) 1.30 (0.90-2.90) K/uL Childress # (Auto) 1.00 H (0.00-0.90) K/UL Eos # (Auto) 0.00 (0.00-0.50) K/uL Baso # (Auto) 0.00 (0.00-0.30) K/uL Abs Immat Gran (auto) 0.00 (0.00-0.30) K/uL Imm/Tot Granulo (auto) 0.3 % INR 1.29 H (0.91-1.10) VBG pH 7.452 H (7.32-7.43) VBG pCO2 35 L (40-50) mmHG VBG pO2 33.0 (25-47) mmHG VBG HCO3 25 (21-28) mmol/L Sodium 138 (135-149) mmol/L Potassium 4.0 (3.6-5.1) mmol/L Chloride 100 (96-114) mmol/L Carbon Dioxide 30 (20-32) mmol/L Anion Gap 8 (7-15) mEq/L BUN 25 (7-30) mg/dL Creatinine 0.9 (0.5-1.5) mg/dL Estimated Creat Clear 68.40 Estimated GFR 93 ml/min Glucose 112 (60-115) mg/dL Lactate 3.4 H 2.6 H 2.6 H (0.5-1.9) mmol/L Calcium 10.0 (8.4-10.6) mg/dL Troponin I 0.04 (0.01-0.04) ng/mL C-Reactive Protein 0.5 (0.5-1.0) mg/dL NT-Pro-B Natriuret Pep 9290 pg/mL SARS-CoV-2 (PCR) (Negative) Influenza Type A (PCR) (Negative) Influenza Type B (PCR) (Negative) RSV (PCR) (Negative) 09/01/24 09/01/24 Range/Units 22:45 Unknown WBC (4.50-11.00) K/uL RBC (4.30-5.90) m/uL Hgb (13.5-17.5) gm/dL Hct (37.0-53.0) % MCV (80-100) fL MCH (26-34) pg MCHC (32-36) gm/dL RDW Coeff of Yelena (11.5-15.5) % Plt Count (140-440) K/uL Neut % (Auto) (42.0-72.0) % Lymph % (Auto) (20-44) % Childress % (Auto) (0.0-11.0) % Eos % (Auto) (0.0-7.0) % Baso % (Auto) (0.0-3.0) % Neut # (Auto) (1.7-7.0) K/uL Lymph # (Auto) (0.90-2.90) K/uL Childress # (Auto) (0.00-0.90) K/UL Eos # (Auto) (0.00-0.50) K/uL Baso # (Auto) (0.00-0.30) K/uL Abs Immat Gran (auto) (0.00-0.30) K/uL Imm/Tot Granulo (auto) % INR (0.91-1.10) VBG pH 7.371 (7.32-7.43) VBG pCO2 37 L (40-50) mmHG VBG pO2 53.9 H (25-47) mmHG VBG HCO3 22 (21-28) mmol/L Sodium 136 (135-149) mmol/L Potassium 3.5 L (3.6-5.1) mmol/L Chloride 104 (96-114) mmol/L Carbon Dioxide 20 (20-32) mmol/L Anion Gap 12 (7-15) mEq/L BUN 39 H (7-30) mg/dL Creatinine 0.7 (0.5-1.5) mg/dL Estimated Creat Clear 68.40 Estimated GFR 100 ml/min Glucose 126 H (60-115) mg/dL Lactate 2.1 H (0.5-1.9) mmol/L Calcium 8.3 L (8.4-10.6) mg/dL Troponin I 0.04 (0.01-0.04) ng/mL C-Reactive Protein (0.5-1.0) mg/dL NT-Pro-B Natriuret Pep 7640 pg/mL SARS-CoV-2 (PCR) Negative SARS-CoV-2 (Negative) Influenza Type A (PCR) POSITIVE PCR FLU A A (Negative) Influenza Type B (PCR) Negative PCR FLU B (Negative) RSV (PCR) Negative PCR RSV (Negative) Imaging Data Chest x-ray: Attestation: I have reviewed the pertinent imaging results. Radiologist's impression: IMPRESSION: 1. Peripheral left basilar airspace opacity consistent with pneumonia. 2. The previously documented cavitary lesion of the right lung apex is slightly smaller compared to 05/25/2024. Emphysematous changes noted at the periphery of this lesion on the frontal view of the chest as on the prior examination. Please refer to the report of the chest CT examination dated 05/26/2024 for further description. Repeat CXR: Attestation: I have reviewed the pertinent imaging results. Radiologist's impression: IMPRESSION: Increased bilateral lower lung zone airspace disease. ECG Data Attestation: I personally reviewed and interpreted this ECG as follows: Interpretation: The atrial fibrillation (or possibly atrial flutter for with variable A: V conduction) with rapid ventricular response Rate: 128 CO: Not apical QRS axis: Normal axis. ST segment/T wave: No ST segment elevation. He does have nonspecific T-wave inversions in leads V2-V6. QTc: 405 Critical Care Time Critical Care Time Critical Care Time: Yes Attestation: The patient required my highest level preparedness to intervene emergently and I personally spent this critical care time directly and personally managing the patient. This critical care time included: Obtaining a history; Examining the patient; Pulse oximetry; Ordering and reviewing of studies; Arranging urgent treatment with development of a management plan; Evaluation of patients response to treatment; Frequent reassessment discussions with other providers. This critical care time was performed to assess and manage the high probability of imminent life-threatening deterioration that could result in multiorgan failure. It was exclusive of separate billable procedures and treating other patients and teaching time. Total Critical Care Time in Minutes: 45 Discharge Plan Discharge Clinical Impression: Influenza A, Community acquired bacterial pneumonia, Atrial fibrillation with RVR, Hypoxia, CHF (congestive heart failure), COPD exacerbation Patient Disposition: Admitted As Observation
[2024-09-01 19:03] LABS: HCO3 VBG 25 mmol/L (21-28); Lactate Sepsis w/Reflex* 3.4 mmol/L (0.5-1.9); PCO2 VBG 35 mmHG (40-50); pH VBG 7.452 (7.32-7.43)
[2024-09-01 19:07] LABS: Basophils Percent Auto 0.3 % (0.0-3.0); Hematocrit 59.4 % (37.0-53.0); Immature Granulocytes Pct Auto 0.3 %; Lymphocytes Percent Auto 11.4 % (20-44); Mean Corpuscular HGB Conc 34 gm/dL (32-36); Mean Corpuscular Hemoglobin 33 pg (26-34); Mean Corpuscular Volume 98 fL (80-100); Monocytes Percent Auto 8.9 % (0.0-11.0); Neutrophils Percent Auto 79.1 % (42.0-72.0); Platelet Count* 141 K/uL (140-440); RDW Coefficient of Variation % 13.6 % (11.5-15.5); Red Blood Count 6.05 m/uL (4.30-5.90); White Blood Count* 11.45 K/uL (4.50-11.00)
[2024-09-01] MEDS: cefTRIAXone 1 GM in 0.9 % SODIUM CHLORIDE Mini-bag 100 ML IVPB (19:14)
[2024-09-01] MEDS: ASPIRIN 81 MG TAB.CHEW 162 MG PO (19:15)
[2024-09-01] MEDS: ALBUTEROL SULFATE 2.5 MG/3 ML VIAL.NEB NEB (19:16)
[2024-09-01 19:18] LABS: Slide Review Reflex No
[2024-09-01] MEDS: METHYLPREDNISOLONE SOD SUCC 62.5 MG/ML (125) 125 MG IVP (19:20)
[2024-09-01] MEDS: 0.9 % SODIUM CHLORIDE 1000 ml 1,000 ML IV ×2 (19:20→21:28)
[2024-09-01 19:23] LABS: INR 1.29 (0.91-1.10)
--- OUTSIDE RECORDS SUMMARY | 2024-09-01 19:24 | XMS_ITS | Clinical Summary ---
Author Organization [facility] [facility] Address [place], [place] [address] Care Team Providers Care Puppet Maker Name Role Phone Luis Leyva MD Unavailable [phone] Amos Wade MD Primary Care Provider [phone] Luciano Cunningham MD Unavailable [phone] Allergies Active Allergy Reactions Criticality Noted Date Comments Pregabalin Edema 04/18/2015 Weight gain, numbness, edema Medications aspirin (ECOTRIN) 81 mg enteric coated tabletIndications :Coronary artery disease involving [place] coronary artery of [place] heart without angina pectoris Take 1 tablet [...] Coronary atherosclerosis of unspecified type of vessel, [place] or graft 09/22/2007 Overview (05/31/2010): mild-mod disease [...] years Medical Home 10/10/2010 01/31/2012 Overview (10/10/2010): manager rental Diane Bettencourt RN [phone] Pleural scarring 06/05/2010 07/07/2015 Hemoptysis 06/01/2010 03/20/2011 [...] Type Department Care Team Description 08/31/2024 Refill [facility] [address] [place] [address] Amos Wade MD Refill Request (Duloxetine, Rosuvastatin) 08/30/2024 9:15 AM DRY STARCH OPERATOR Ancillary Procedure [facility] [address] [place] [address] Arrived 08/30/2024 Travel 08/18/2024 Refill [facility] [address] [place] [address] Amos Wade MD Refill Request (Budesonide-formoter ol) 07/25/2024 Refill [facility] [address] [place] [address] Amos Wade MD Refill Request (Metoprolol Succinate) 06/10/2024 11:00 AM CDT Ancillary Procedure [facility] [address] [place] [address] 06/10/2024 Travel 06/08/2024 11:45 AM CDT Office Visit [facility] [address] [place] [address] Amos Wade MD Hospital F/U (Patient states [...] on file Legal Sex Male 5:27 AM DRY STARCH OPERATOR Gender Identity Not on file Sexual Orientation Not on file Obstetrics History Last Filed Vital Signs Vital Sign Reading Time Taken Comments Blood Pressure 118/78 06/08/2024 11:50 AM CDT Pulse 81 06/08/2024 11:50 AM CDT Temperature 36.4 C (97.6 F) 05/12/2023 2:54 PM CDT Respiratory Rate 16 06/27/2021 12:20 PM DRY STARCH OPERATOR Oxygen Saturation 89% 06/08/2024 11:50 AM CDT Inhaled Oxygen Concentration - - Weight 96.3 kg (212 lb 4.8 oz) 06/08/2024 11:50 AM CDT Height 174.5 cm (5' 8.7) 09/15/2023 1:07 PM DRY STARCH OPERATOR Body Mass Index 31.62 09/15/2023 1:07 PM DRY STARCH OPERATOR Plan of Treatment Upcoming Encounters Date Type Department Care Team (Late st Contact Info) Description 09/02/2024 1:00 PM DRY STARCH OPERATOR Office Visit [facility] [address] [place] [address] Lawrence Low MD [address] [facility] [address] [place] [address] Health Maintenance Due Date Last Done Comments [...] Type Associated Problems Recent Progress Patient-Stated? Author [id number] SCORE WILL SHOW IMPROVEMENT -goal of less than 9 in 6 months 09/2012 Diet Not on track( 12:27 PM DRY STARCH OPERATOR) No Bettie Bazzi RN DEPRESSION-PATIENT PARTICIPATES IN BEHAVIRAL ACTIVATION, SMALL GOAL SETTING- eating low fat diet, less refined foods Diet On track( 12:27 PM DRY STARCH OPERATOR) No Bettie Bazzi RN DEPRESSION-PATIENT PARTICIPATES IN BEHAVIORAL ACTIVATION, SMALL GOAL SETTING by 10/16/2011 as evidence by patient starting membership at [facility] per report Diet Not on track( 012 11:26 AM CDT) No Bettie Bazzi RN DEPRESSION-PATIENT PARTICIPATES IN BEHAVIORAL ACTIVATION, working with a therapist in 2 months 05/17/2012 Diet No Bridgett Morley Procedures Procedure Name Priority Date/Time Associated Diagnosis Comments US ANKLE BRACHIAL INDEX BILATERAL Routine 08/30/2024 9:51 AM DRY STARCH OPERATOR Popliteal aneurysm (HC) ECHO TTE COMPLETE W CONTRAST Routine 06/10/2024 11:52 AM CDT Chronic heart failure with preserved ejection fraction (HC) CT CHEST SCREENING LOW DOSE WO CONTRAST Routine 09/22/2023 9:03 AM DRY STARCH OPERATOR Encounter for screening for lung cancer Personal history of nicotine dependence LIPID PANEL Routine 09/15/2023 2:44 PM DRY STARCH OPERATOR HTN (hypertension) CTA CHEST ABDOMEN PELVIS Routine 05/29/2021 10:30 AM CDT Abdominal aortic aneurysm (AAA) without rupture (HC) Mycobacterium avium complex (HC) COLONOSCOPY 05/25/2021 10:27 AM CDT ANTI HCV Routine 05/18/2021 12:40 PM CDT Need for hepatitis C screening test from Last 3 Months or Most Recently Relevant to Health Maintenance Results * US ANKLE BRACHIAL INDEX BILATERAL (08/30/2024 9:51 AM DRY STARCH OPERATOR) Anatomical Region Laterality Modality ANKLES, ANKLE L, ANKLE R Ultraso und 08/30/2024 9:08 AM DRY STARCH OPERATOR Narrative 08/30/2024 6:09 PM DRY STARCH OPERATOR VASCULAR ULTRASOUND REPORT TREVIN KATE : 1955 Study Date: 08/30/2024 9:08:24 AM Age: 69 years Tech: BSG Gender: M Referring MD: LAWRENCE LOW Site: [facility] Study performed: Lower extremity resting LALITA, (bilateral). [...] RIGHT Velocity cm/s Phasicity +--------+ + + MASKING MACHINE FEEDER DST 53 multiphasic +--------+ + + RICH DST 24 multiphasic +--------+ + + DPA 29 multiphasic +--------+ + + +--------+ + + LEFT Velocity cm/s Phasicity +--------+ + + MASKING MACHINE FEEDER DST 71 multiphasic +--------+ + + RICH [...] 140 Index +-----+ +--------+ +-----+ 1.10 160 MASKING MACHINE FEEDER 168 1.15 +-----+ +--------+ +-----+ 1.08 158 DPA 150 1.03 +-----+ +--------+ +-----+ Calderon Humphreys MD. Electronically signed on 08/30/2024 6:09:14 PM This study was performed and interpreted by a service accredited by the Intersocietal Accreditation Commission (IAC/Vascular), [email or web address]/vascular Report generated by [employer]. Final Procedure Note Calderon Humphreys MD - 08/30/2024 VASCULAR ULTRASOUND REPORT TREVIN KATE : 1955 Study Date: 08/30/2024 9:08:24 AM Age: 69 years Tech: BSMarivel Gender: M Referring MD: LAWRENCE LOW Site: [facility] Study performed: Lower extremity resting LALITA, (bilateral). [...] RIGHT Velocity cm/s Phasicity +--------+ + + MASKING MACHINE FEEDER DST 53 multiphasic +--------+ + + RICH DST 24 multiphasic +--------+ + + DPA 29 multiphasic +--------+ + + +--------+ + + LEFT Velocity cm/s Phasicity +--------+ + + MASKING MACHINE FEEDER DST 71 multiphasic +--------+ + + RICH [...] 140 Index +-----+ +--------+ +-----+ 1.10 160 MASKING MACHINE FEEDER 168 1.15 +-----+ +--------+ +-----+ 1.08 158 DPA 150 1.03 +-----+ +--------+ +-----+ Calderon Humphreys MD. Electronically signed on 08/30/2024 6:09:14 PM This study was performed and interpreted by a service accredited by theIntersocietal Accreditation Commission (IAC/Vascular),[email or web address] Report generated by [employer]. Final us Lawrence friend Result * ECHO [...] BSA: 2.13 m Weight: 100.00 kg Tech: HJOAN Referring MD: AMOS WADE Site: [facility] Reading Location: Mobile OP Patient Location: [...] documentation: 4 ml diluted Definity, lot #[id number], [facility]# [id number] was administered peripherally to enhance visualization of all left ventricular segments. . This study was interpreted by an [facility] accredited facility. Final Procedure Note Hill Arechiga MD - 06/10/2024 ECHOCARDIOGRAM TREVIN KATE : 1955 69 years Study Date: 06/10/2024 10:59:15 AM Gender: M BP: 114/73 mmHg Height: 173.00 cm BSA: 2.13 m Weight: 100.00 kg Tech: JHOAN Referring MD: AMOS WADE Site: [facility] Reading Location: Mobile OP Patient Location: [...] documentation: 4 ml diluted Definity, lot #[id number], [facility]#[id number] was administered peripherally to enhance visualization of allleft ventricular segments. . This study was interpreted by an IAC accredited facility. Final us Amos Wade MD ECHO ORD Final Resu lt * CT CHEST SCREENING LOW DOSE WO CONTRAST [[id number]] (09/22/2023 9:03 AM DRY STARCH OPERATOR) Anatomical Region Laterality Modality Computed Tomogra phy Impressions 09/22/2023 1:34 PM DRY STARCH OPERATOR Stable exam. Unchanged lobular nodule within the [...] @09/22/2023 11:18:06 AM/CRL:grant Narrative 09/22/2023 1:34 PM DRY STARCH OPERATOR For Patients: As a result of the [...] * (ABNORMAL) LIPID PANEL (09/15/2023 2:44 PM DRY STARCH OPERATOR) Pathologist [facility] CHOLESTEROL,TOTAL 135 100 - 199 mg/dL 09/15/2023 10:32 PM DRY STARCH OPERATOR [facility] Comment: Cholesterol, Total Reference Ranges Desirable <200 mg/dL Borderline 200-239 mg/dL High >=240 mg/dL TRIGLYCERIDES 185(H) <150 mg/dL 09/15/2023 10:32 PM DRY STARCH OPERATOR [facility] HDL CHOLESTEROL 32(L) >40 mg/dL 10:32 PM DRY STARCH OPERATOR [facility] NON-HDL CHOLESTEROL 103 <145 mg/dl 09/15/2023 10:32 PM DRY STARCH OPERATOR [facility] CHOL/HDL RATIO 4.22 <4.50 09/15/2023 10:32 PM DRY STARCH OPERATOR [facility] LDL CHOLESTEROL 66 <=130 mg/dL 09/15/2023 10:32 PM DRY STARCH OPERATOR [facility] VLDL CHOLESTEROL 37(H) <=30 mg/dL 09/15/2023 10:32 PM DRY STARCH OPERATOR [facility] PROVIDER ORDERED STATUS RANDOM 09/15/2023 10:32 PM DRY STARCH OPERATOR [facility] Blood BLOOD SPECIMEN / Unknown Butterfly / Unknown 09/15/2023 2:44 PM DRY STARCH OPERATOR 09/15/2023 2:49 PM DRY STARCH OPERATOR us Amos Wade MD CHEMISTRY Final Resu lt [facility] [address] [place] [address], [place] * CTA CHEST ABDOMEN PELVIS (05/29/2021 [...] there are any questions, please contact the commodity industry analyst. Moderate Sedation: Moderate (conscious) sedation was administered [...] 10:27 AM Procedure Code(s): --- Professional --- 67841, Colonoscopy, flexible; with removalof tumor(s), polyp(s), or other lesion(s) bysnare technique 71131, 59, Colonoscopy, flexible; withbiopsy, single or multiple Diagnosis Code(s): --- Professional --- K63.5, Polyp of colon Z12.11, Encounter for screening formalignant neoplasm of colon K63.89, Other specified diseases ofintestine K57.30, Diverticulosis of large intestine without perforation or abscess withoutbleeding Q43.8, Other specified congenitalmalformations of intestine CPT copyright 2020 [employer]. All rights reserved. The codes documented in this report are preliminary and upon icd 9 coder reviewmay be revised to meet current compliance requirements. Scope In: 11:05:44 AM Scope Withdrawal Time 0 hours 19 minutes 0 seconds Scope Out: 11:42:06 AM us Noman Haro MD PROCEDURE ORD Final Res ult * ANTI HCV (05/18/2021 12:40 PM CDT) HEPATITIS C ANTIBODY Non-React candy Non-React candy 05/18/2021 10:37 PM CDT [facility] [employer] [facility] Comment:Antibodies to HCV no t detected; does not exclude the possibility of exposure to HCV. Blood BLOOD SPECIMEN / Unknown Butterfly / Unknown 05/18/2021 12:40 PM CDT 05/18/2021 12:40 PM CDT us Amos Wade MD SEND OUTS Final Resu lt [facility] [address] [place] [address], [place] from Last 3 Months or Most Recently Relevant to Health Maintenance Insurance MEDICARE PART B HB ONLY MEDICARE PART A HB ONLY [place] HB ONLY [employer] MR PB ONLY Advance Directives * Full Code (Latest Code Status on File) Date Activated Date Inactivated Comments 06/06/2011 8:16 AM 06/08/2011 11:50 AM * Full Code Date Activated Date Inactivated Comments 05/30/2010 9:35 PM 06/02/2010 5:59 PM Care Teams Puppet Maker Relationship Specialty Start Date End Date Amos Wade MD [address] [place] [address] PCP - General Family Practice 07/11/15 Luis Leyva MD Rheumatology Rheumatology 09/12/11 [place] [address] [place] [address] Pulmonology Pulmonary Medicine 07/06/21
[2024-09-01] MEDS: AZITHROMYCIN 500 MG in 0.9 % SODIUM CHLORIDE 250 ml 250 ML 255 MG IVPB (19:30)
[2024-09-01 19:48] LABS: Troponin I* 0.04 ng/mL (0.01-0.04)
[2024-09-01 19:54] LABS: NT Pro B Type NatriureticPept* 9290 pg/mL
[2024-09-01 19:57] LABS: PCR FLU A POSITIVE PCR FLU A (Negative); PCR FLU B Negative PCR FLU B (Negative); PCR RSV Negative PCR RSV (Negative); SARS PCR* Negative SARS-CoV-2 (Negative)
[2024-09-01 20:02] LABS: Sodium* 138 mmol/L (135-149)
[2024-09-01 20:03] LABS: Anion Gap 8 mEq/L (7-15); Blood Urea Nitrogen* 25 mg/dL (7-30); C Reactive Protein* 0.5 mg/dL (0.5-1.0); Carbon Dioxide* 30 mmol/L (20-32); Chloride* 100 mmol/L (96-114); Creatinine* 0.9 mg/dL (0.5-1.5); Estimated Glomerular Filt Rate 93 ml/min; Glucose* 112 mg/dL (60-115)
[2024-09-01] MEDS: OSELTAMIVIR PHOSPHATE 75 MG CAPSULE PO (20:15)
[2024-09-01 21:16] LABS: Lactate Sepsis 2 Hour 2.6 mmol/L (0.5-1.9)
[2024-09-01] MEDS: dilTIAZem 5 MG/ML inj 10 MG IVP (22:22)
[2024-09-01] MEDS: LACTATED RINGERS 500 ML 500 ML IV (22:26)
--- NOTE | 2024-09-01 22:31 | CRLHL7_ITS ---
For Patients: As a result of the Cures Act, medical imaging exams and procedure reports are released immediately into your electronic medical record. You may view this report before your referring provider. If you have questions, please contact your health care provider. INDICATION: Dyspnea, hypoxia. TECHNIQUE: Chest 1 view. COMPARISON: Earlier same day. FINDINGS: Cardiovascular and mediastinum: Stable cardiomediastinal silhouette. Lungs and pleural spaces: Right apical cavitary lesion, unchanged. Increased bilateral lower lung zone patchy opacities. No large pleural effusions. No pneumothorax. Bones and soft tissues: Unchanged. IMPRESSION: Increased bilateral lower lung zone airspace disease. Dictated by Fady Daniel MD @ 09/01/2024 11:31:10 PM (Electronically Signed)
[2024-09-01 22:53] LABS: HCO3 VBG 22 mmol/L (21-28); Lactate* 2.1 mmol/L (0.5-1.9); PCO2 VBG 37 mmHG (40-50); PO2 VBG 53.9 mmHG (25-47); pH VBG 7.371 (7.32-7.43)
[2024-09-01 23:10] LABS: Chloride* 104 mmol/L (96-114); Sodium* 136 mmol/L (135-149)
[2024-09-01 23:11] LABS: Potassium* 3.5 mmol/L (3.6-5.1)
[2024-09-01 23:13] LABS: Anion Gap 12 mEq/L (7-15); Carbon Dioxide* 20 mmol/L (20-32); Creatinine* 0.7 mg/dL (0.5-1.5); Estimated Glomerular Filt Rate 100 ml/min
[2024-09-01 23:14] LABS: Blood Urea Nitrogen* 39 mg/dL (7-30); Calcium* 8.3 mg/dL (8.4-10.6); Glucose* 126 mg/dL (60-115)
[2024-09-01 23:14] LABS: Lactate* 2.6 mmol/L (0.5-1.9)
[2024-09-01 23:23] LABS: NT Pro B Type NatriureticPept* 7640 pg/mL
[2024-09-01 23:33] LABS: Troponin I* 0.04 ng/mL (0.01-0.04)
[2024-09-02] VITALS (30 sets, daily range): BP systolic 107–146; BP diastolic 74–96; PULSE 71–95; RESP 16–22; TEMP 36.2–36.7; O2SAT 78–94; BMI 30.4; BMI 29.8
[2024-09-02] MEDS: FUROSEMIDE 10 MG/ML inj 20 MG IVP (00:31)
--- NOTE | 2024-09-02 02:39 | CRLHL7_ITS ---
For Patients: As a result of the Century Cures Act, medical imaging exams and procedure reports are released immediately into your electronic medical record. You may view this report before your referring provider. If you have questions, please contact your health care provider. INDICATION: Respiratory failure. TECHNIQUE: CTA chest PE was acquired with 95 cc Isovue 370 IV contrast. Coronal and sagittal MIP reconstructions were performed. COMPARISON: CT chest 05/26/2024. FINDINGS: Heart and vasculature: Contrast opacification of the pulmonary arterial tree is adequate. No sign of pulmonary embolism. Heart size is normal. Pericardial calcifications, unchanged. Thoracic aorta is normal in caliber. Stable enlarged main pulmonary artery, suggestive of underlying pulmonary arterial hypertension. Coronary artery calcifications and/or stents. Lungs and pleura: Diffuse bronchial wall thickening. Moderate emphysema. Decreased size of the right apical peripherally calcified thick-walled cavitary lesion measuring 9.6 x 3.9 cm, previously 10.5 x 4.5 cm. Patchy consolidation in the bilateral lower lobes. Scattered calcified granulomas. Chronic calcified right pleural collection/thickening. Lymph nodes/mediastinum: No mediastinal, hilar, or axillary adenopathy. Calcified mediastinal and hilar lymph nodes, likely sequela of healed granulomatous disease. Stable thyroid gland. Chest wall: No masses. Upper abdomen: Scattered retroperitoneal para-aortic surgical clips. Partially visualized infrarenal abdominal aortic aneurysm. Bones: Unremarkable for age. IMPRESSION: 1. No evidence of pulmonary embolism. 2. Bilateral lower lobe patchy consolidation, likely representing pneumonia. 3. Decreased size of the right apical peripherally calcified thick-walled cavitary lesion. Other findings related to history of known MAC, similar to prior. Please note that all CT scans at this facility use dose modulation, iterative reconstruction, and/or weight-based dosing when appropriate to reduce radiation dose to as low as reasonably achievable. Dictated by Fady Daniel MD @ 09/02/2024 3:58:23 AM (Electronically Signed)
--- NOTE | 2024-09-02 02:56 | W.PM.TELEH&P ---
Telehealth- H&P: HPI History of Present Illness Date Seen: 09/02/24 Chief complaint: Respiratory issues Narrative: Trevin Kate is seen as an Interactive Telehealth visit. This is a 69-year-old male with a past medical history significant for recent hospitalization for pneumonia, extensive tobacco abuse disorder, CHF who presented to the hospital with respiratory failure. This patient's presented to the hospital earlier today and a very similar pattern. Patient has a very extensive tobacco abuse disorder history. He states that over the past year he has been declining. He feels short of breath with minimal exertion. He is unable to do his regular activity. Over the past week he has noticed significant change in his activity. He states he is unable to walk unable to ambulate unable to do his regular activity. He also notes that he has been having increasing fevers and chills. Denies chest pain. Is describing positive sputum production. Today he presented to the emergency room in respiratory distress. When he presented to the ER, he was noted to be in atrial fibrillation rapid ventricular rate, and respiratory failure. He was initially placed on BiPAP. He was also administered diltiazem for his heart rate. Eventually his atrial fibrillation converted to sinus rhythm. He was administered IV fluids. Patient WBC count was elevated at 11.45, RBC was 6.0, hemoglobin was 20 and hematocrit was almost 60. Patient's initial blood gas showed a VBG pH of 7.452 pCO2 of 35 and pCO2 of 33. Initial lactic acid was 2.6 creatinine was within normal limits. Patient underwent respiratory panel which showed influenza A positive. Review of Systems Status of ROS: Reports: 10 or more systems reviewed and unremarkable except as noted in History and below Const: Reports: fever Cardio: Reports: shortness of breath with exertion Resp: Reports: shortness of breath, wheezing and change in phlegm color Allergy/Immuno: Reports: wheezing [facility] Medical History (Updated 09/02/24 @ 00:34 by José Borjas MD) Cardiac arrest ?I46.9 - Cardiac arrest, cause unspecified (ICD-10) Pulmonary nodule ?R91.1 - Solitary pulmonary nodule (ICD-10) Peripheral arterial disease ?I73.9 - Peripheral vascular disease, unspecified (ICD-10) JIMY (obstructive sleep apnea) ?G47.33 - Obstructive sleep apnea (adult) (pediatric) (ICD-10) Thoracic back pain ?M54.6 - Pain in thoracic spine (ICD-10) Fibromyalgia ?M79.7 - Fibromyalgia (ICD-10) Migraine ?G43.909 - Migraine, unspecified, not intractable, without status migrainosus (ICD-10) Mycobacterium avium complex ?A31.0 - Pulmonary mycobacterial infection (ICD-10) Testicular cancer ?C62.90 - Malignant neoplasm of unspecified testis, unspecified whether descended or undescended (ICD-10) Tobacco abuse ?Z72.0 - Tobacco use (ICD-10) MDD (major depressive disorder) ?F32.9 - Major depressive disorder, single episode, unspecified (ICD-10) COPD (chronic obstructive pulmonary disease) ?J44.9 - Chronic obstructive pulmonary disease, unspecified (ICD-10) Heart failure with preserved ejection fraction ?I50.30 - Unspecified diastolic (congestive) heart failure (ICD-10) Abdominal aneurysm ?I71.40 - Abdominal aortic aneurysm, without rupture, unspecified (ICD-10) CAD (coronary artery disease) ?I25.10 - Atherosclerotic heart disease of [place] coronary artery without angina pectoris (ICD-10) Hypertension ?I10 - Essential (primary) hypertension (ICD-10) Hyperlipidemia ?E78.5 - Hyperlipidemia, unspecified (ICD-10) Social History What is your current living situation?: I presently have a place to live Problems where you live: no known problems Problems where you live details: no known problems In the past 12 months, utilities in danger of being shut off: no In past 12 months, lack of transportation kept you from medical appts, meetings, work, or getting things needed for daily living: no In the past 12 mos, have been you worried that your food would run out before you had money to buy more?: never true In the past 12 mos, the food you bought just didn't last and you didn't have money to buy more?: never true Highest level of school completed/degree received: 12th grade, no diploma Smoking Status: Current every day smoker What tobacco products do you use: cigarettes Smoking packs per day: 2 Smoking cigarettes per day: 40.0 Years smoked: 52 Smoking pack-years: 104.00 How often do you have a drink containing alcohol: never How often do you have six or more drinks on one occasion: Never AUDIT-C Alcohol total score: 0 Non-prescribed substance use: denies use Caffeine: Yes How often does anyone, including family, friends and others, physically hurt you: never How often does anyone, including family, friends and others, insult or talk down to you: never How often does anyone, including family, friends and others, threaten you with harm: never How often does anyone, including family, friends and others, scream or curse at you: never Meds Home Medications and Allergies Home Medications ?Medication ?Instructions ?Recorded ?Confirmed ?Type albuterol sulfate 90 mcg/actuation 1 - 2 puff inhalation Q4H PRN 05/25/24 05/25/24 History aerosol inhaler aspirin 81 mg tablet,delayed 81 mg PO DAILY 05/25/24 05/25/24 History release budesonide-formoterol HFA 160 2 puff inhalation BID 05/25/24 05/25/24 History mcg-4.5 mcg/actuation aerosol inhaler duloxetine 30 mg capsule,delayed 30 mg PO DAILY 05/25/24 05/25/24 History release duloxetine 60 mg capsule,delayed 60 mg PO DAILY 05/25/24 05/25/24 History release losartan 50 mg-hydrochlorothiazide 1 tab PO DAILY 05/25/24 05/25/24 History 12.5 mg tablet metoprolol succinate 50 mg 50 mg PO DAILY 05/25/24 05/25/24 History tablet,extended release 24 hr multivitamin (Daily Multi-Vitamin 1 tab PO DAILY 05/25/24 05/25/24 History tablet) psyllium 1 tbsp PO DAILY 05/25/24 05/25/24 History rosuvastatin 5 mg tablet 5 mg PO DAILY 05/25/24 05/25/24 History sumatriptan succinate 100 mg See Rx Instructions PO .COMPLEX 05/25/24 05/25/24 History tablet (Imitrex) Allergies Allergy/AdvReac Type Severity Reaction Status Date / Time pregabalin (From Lyrica) Allergy Mild Verified 09/02/24 02:05 Exam Narrative Exam Narrative: Physical Exam GENERAL: ?vital signs reviewed, well developed and nourished, in no distress HEENT: pupils are equal round and reactive to light, extraocular movements are grossly within normal limits and oral mucosa poor dentition NECK: Supple without lymphadenopathy or thyromegaly according to nursing staff examination observation HEART: Regular rate and rhythm without any rubs, positive murmurs, or gallops. LUNGS: bilateral wheezing, ronchi, coarse breath sounds ABDOMEN: Observation from nurse assisted exam, abdomen appears soft, nontender, and nondistended with Positive bowel sounds noted. EXTREMITIES: Strength and sensation is observed to be grossly within normal limits in the upper and lower extremities.? No focal strength deficit is observed. left leg edema, right leg normal SKIN:? Observed warm and dry with color normal Const Vital Signs, click to edit/add: Vital Signs - 24 hr 09/01/24 18:36 09/01/24 18:48 09/01/24 19:07 Temperature 96.9 F L Pulse Rate 127 H Pulse Rate [Left Pulse Oximeter] 126 H Pulse Rate [Pulse Oximeter] Respiratory Rate 28 H 33 H Blood Pressure Blood Pressure [Left Upper Arm] 128/104 H Blood Pressure [Right Arm] Pulse Oximetry 90 86 L Oxygen Delivery Method Room Air Nasal Cannula Nasal Cannula Oxygen Flow Rate 2 2 09/01/24 19:20 09/01/24 19:21 09/01/24 19:40 Temperature Pulse Rate 117 H 117 H 121 H Pulse Rate [Left Pulse Oximeter] Pulse Rate [Pulse Oximeter] Respiratory Rate 23 28 H 24 Blood Pressure 129/112 H Blood Pressure [Left Upper Arm] Blood Pressure [Right Arm] Pulse Oximetry 96 97 90 Oxygen Delivery Method Nasal Cannula Nasal Cannula Nasal Cannula Oxygen Flow Rate 2 2 2 09/01/24 19:41 09/01/24 20:00 09/01/24 20:01 Temperature Pulse Rate 124 H 119 H 104 H Pulse Rate [Left Pulse Oximeter] Pulse Rate [Pulse Oximeter] Respiratory Rate 32 H 33 H 26 H Blood Pressure 141/109 H 116/96 H Blood Pressure [Left Upper Arm] Blood Pressure [Right Arm] Pulse Oximetry 91 92 92 Oxygen Delivery Method Nasal Cannula Nasal Cannula Nasal Cannula Oxygen Flow Rate 2 2 2 09/01/24 20:02 09/01/24 20:20 09/01/24 20:21 Temperature Pulse Rate 121 H 110 H 113 H Pulse Rate [Left Pulse Oximeter] Pulse Rate [Pulse Oximeter] Respiratory Rate 28 H 28 H 29 H Blood Pressure 97/83 Blood Pressure [Left Upper Arm] Blood Pressure [Right Arm] Pulse Oximetry 92 90 90 Oxygen Delivery Method Oxygen Flow Rate 09/01/24 20:32 09/01/24 20:34 09/01/24 20:40 Temperature Pulse Rate 97 107 H 114 H Pulse Rate [Left Pulse Oximeter] Pulse Rate [Pulse Oximeter] Respiratory Rate Blood Pressure 95/82 109/92 H Blood Pressure [Left Upper Arm] Blood Pressure [Right Arm] Pulse Oximetry 88 90 89 Oxygen Delivery Method Oxygen Flow Rate 09/01/24 20:41 09/01/24 21:01 09/01/24 21:02 Temperature Pulse Rate 109 H 123 H Pulse Rate [Left Pulse Oximeter] Pulse Rate [Pulse Oximeter] Respiratory Rate Blood Pressure 101/83 99/82 Blood Pressure [Left Upper Arm] Blood Pressure [Right Arm] Pulse Oximetry 90 91 Oxygen Delivery Method Oxygen Flow Rate 09/01/24 21:20 09/01/24 21:23 09/01/24 21:24 Temperature Pulse Rate 107 H 124 H 117 H Pulse Rate [Left Pulse Oximeter] Pulse Rate [Pulse Oximeter] Respiratory Rate Blood Pressure 118/78 Blood Pressure [Left Upper Arm] Blood Pressure [Right Arm] Pulse Oximetry 89 87 L 89 Oxygen Delivery Method Oxygen Flow Rate 09/01/24 21:40 09/01/24 21:41 09/01/24 21:42 Temperature Pulse Rate 129 H 108 H 116 H Pulse Rate [Left Pulse Oximeter] Pulse Rate [Pulse Oximeter] Respiratory Rate Blood Pressure 116/91 H Blood Pressure [Left Upper Arm] Blood Pressure [Right Arm] Pulse Oximetry 90 91 91 Oxygen Delivery Method Oxygen Flow Rate 09/01/24 22:00 09/01/24 22:01 09/01/24 22:20 Temperature Pulse Rate 127 H 125 H 115 H Pulse Rate [Left Pulse Oximeter] Pulse Rate [Pulse Oximeter] Respiratory Rate Blood Pressure 113/96 H Blood Pressure [Left Upper Arm] Blood Pressure [Right Arm] Pulse Oximetry 90 90 89 Oxygen Delivery Method Oxygen Flow Rate 09/01/24 22:21 09/01/24 22:24 09/01/24 22:40 Temperature Pulse Rate 121 H 119 H 98 Pulse Rate [Left Pulse Oximeter] Pulse Rate [Pulse Oximeter] Respiratory Rate Blood Pressure 98/77 109/92 H Blood Pressure [Left Upper Arm] Blood Pressure [Right Arm] Pulse Oximetry 89 77 L 89 Oxygen Delivery Method Oxygen Flow Rate 09/01/24 22:41 09/01/24 23:00 09/01/24 23:01 Temperature Pulse Rate 100 76 75 Pulse Rate [Left Pulse Oximeter] Pulse Rate [Pulse Oximeter] Respiratory Rate Blood Pressure 111/93 H 111/83 Blood Pressure [Left Upper Arm] Blood Pressure [Right Arm] Pulse Oximetry 91 91 91 Oxygen Delivery Method Nasal Cannula Nasal Cannula Oxygen Flow Rate 3 3 09/01/24 23:20 09/01/24 23:21 09/01/24 23:40 Temperature Pulse Rate 73 76 73 Pulse Rate [Left Pulse Oximeter] Pulse Rate [Pulse Oximeter] Respiratory Rate Blood Pressure 99/78 Blood Pressure [Left Upper Arm] Blood Pressure [Right Arm] Pulse Oximetry 91 92 91 Oxygen Delivery Method Nasal Cannula Nasal Cannula Nasal Cannula Oxygen Flow Rate 3 3 3 09/01/24 23:41 09/01/24 23:42 09/02/24 00:00 Temperature 96.5 F L Pulse Rate 76 73 75 Pulse Rate [Left Pulse Oximeter] Pulse Rate [Pulse Oximeter] Respiratory Rate Blood Pressure 108/80 Blood Pressure [Left Upper Arm] Blood Pressure [Right Arm] Pulse Oximetry 91 91 92 Oxygen Delivery Method Nasal Cannula Nasal Cannula Nasal Cannula Oxygen Flow Rate 3 3 3 09/02/24 00:01 09/02/24 00:20 09/02/24 00:21 Temperature Pulse Rate 72 76 79 Pulse Rate [Left Pulse Oximeter] Pulse Rate [Pulse Oximeter] Respiratory Rate 18 20 Blood Pressure 107/83 115/87 Blood Pressure [Left Upper Arm] Blood Pressure [Right Arm] Pulse Oximetry 92 92 92 Oxygen Delivery Method Nasal Cannula Nasal Cannula Nasal Cannula Oxygen Flow Rate 3 3 3 09/02/24 00:36 09/02/24 00:38 09/02/24 00:40 Temperature Pulse Rate 75 Pulse Rate [Left Pulse Oximeter] Pulse Rate [Pulse Oximeter] Respiratory Rate 20 Blood Pressure Blood Pressure [Left Upper Arm] Blood Pressure [Right Arm] Pulse Oximetry 91 93 Oxygen Delivery Method Nasal Cannula Nasal Cannula Nasal Cannula Oxygen Flow Rate 3 3 3 09/02/24 00:41 09/02/24 01:00 09/02/24 01:01 Temperature Pulse Rate 75 71 82 Pulse Rate [Left Pulse Oximeter] Pulse Rate [Pulse Oximeter] Respiratory Rate 18 16 Blood Pressure 118/88 112/87 Blood Pressure [Left Upper Arm] Blood Pressure [Right Arm] Pulse Oximetry 93 93 92 Oxygen Delivery Method Nasal Cannula Nasal Cannula Nasal Cannula Oxygen Flow Rate 3 3 3 09/02/24 01:20 09/02/24 01:20 Temperature 97.7 F Pulse Rate Pulse Rate [Left Pulse Oximeter] Pulse Rate [Pulse Oximeter] 88 Respiratory Rate 22 22 Blood Pressure Blood Pressure [Left Upper Arm] Blood Pressure [Right Arm] 121/96 H Pulse Oximetry 88 88 Oxygen Delivery Method Nasal Cannula Nasal Cannula Oxygen Flow Rate 2 2 Hospitalist - H&P: Result Labs Labs: Short CBC 09/01/24 Range/Units 18:50 WBC 11.45 H (4.50-11.00) K/uL Hgb 20.0 H (13.5-17.5) gm/dL Hct 59.4 H (37.0-53.0) % Plt Count 141 (140-440) K/uL BMP 09/01/24 09/01/24 18:50 22:45 Sodium 138 136 Potassium 4.0 3.5 L Chloride 100 104 Carbon Dioxide 30 20 BUN 25 39 H Creatinine 0.9 0.7 Glucose 112 126 H Calcium 10.0 8.3 L Cardiac Enzymes 09/01/24 09/01/24 Range/Units 18:50 22:45 Troponin I 0.04 0.04 (0.01-0.04) ng/mL Assessment and Plan Assessment and plan (1) COPD exacerbation: Status: Acute (2) Hypoxia: Status: Acute (3) Atrial fibrillation with RVR: Status: Acute (4) Community acquired bacterial pneumonia: Status: Acute (5) Influenza A: Status: Acute (6) Acute exacerbation of chronic obstructive pulmonary disease: Problem comment: In setting of active smoker, 1.5-2 ppd, poorly managed JIMY, noncompliant with CPAP - In the ED the patient had sepsis and respirtory distress. Normal O2 saturation for him lately 88% at rest DuoNebs q.i.d., albuterol nebs p.r.n., continue home inhalers Oxygen supplementation, 88-92% Prednisone 40 mg daily then taper Continue ceftriaxone and azithromycin until discharge and then oral abx to follow RT for pulmonary support, IS azithromycin (oral) + IV Rocephin transition to oral cefpodoxime at discharge legionella and strep pneumonia neg reviewed CT with and patient Status: Acute (7) Pneumonia: Problem comment: Chest CT revealed a lot of chronic changes; small subtle infiltrate suspected in the RLL see above plan Status: Acute Plan Assessment and plan Acute hypoxic respiratory failure secondary to complicated pneumonia and COPD exacerbation: Patient's most recent chest x-ray suggested a right apical cavitary lesion which is previously unchanged and increasing bilateral lower lung zone patchy opacities without effusions. Will continue to treat underlying problem. Patient is now on 5 L of oxygen maintaining saturations. Atrial fibrillation with rapid ventricular rate currently in sinus rhythm: Patient converted after being given diltiazem. At this time he is not on any rate controlling agents nor is he on anticoagulation. We tried to have this conversation with the patient was very sleepy. Please note he will need to have a conversation with anticoagulation. I will order echocardiogram in the AM. Healthcare associated pneumonia: Patient was recently hospitalized for pneumonia. I will order a CT of his chest for follow-up. His most recent CT showed cavitary lesion. I have ordered azithromycin, cefepime, vancomycin. I am requesting a CTA of the chest to rule out pulmonary embolism, worsening pneumonia. Given the cavitary lesion I would recommend this patient be referred to pulmonology. Influenza A + : although he says he has been feeling ill for over 1 week, i am not confident given his poor history when he started feeling febrile. Given his clinical status, and positive Influenza A infection, I would elect to treat him on tamiflu. Tobacco abuse disorder Concern for congestive heart failure: Initially the ER provider was worried after he gave IV fluids that this patient was getting fluid overloaded. This patient does have left lower extremity swelling and does have a positive JVD but clinically appears to be very dry. X-rays do not suggest pulmonary edema. His labs showed severe dehydration given the elevated hematocrit. I will continue IV fluids. I will also order a left lower extremity venous Doppler Left lower extremity swelling: Doppler ordered. Severe dehydration this is based on clinical assessment and markedly abnormal CBC DVT prophylaxis Lovenox Code level 1 Telehealth Visit Today's History and Physical is provided via interactive telehealth by Dr. Manuel Davis MD. Patient is located at [facility]. Provider is located at [facility]. Nursing staff assisted with the patient's examination. The visit being done today meets criteria for a telehealth visit and the patient or patient's parent and/or gaurdian is aware the visit is a telehealth visit. Camera Start Time 2 AM Camera End Time 2:30 AM Telehealth: Statement Statement Telehealth Visit: Today's History and Physical is provided via interactive telehealth by Manuel Davis MD.? Patient is located at [facility].? Provider is located at [facility].? Nursing staff assisted with the patient's exam. The visit being done today meets criteria for a telehealth visit and the patient or patient?s parent/guardian is aware the visit is a telehealth visit.
[2024-09-02] MEDS: 0.9 % SODIUM CHLORIDE 1000 ml 1,000 ML 75 ML IV (03:44)
[2024-09-02] MEDS: IPRAT-ALBUT 0.5-2.5 MG/3 ML NEB 1 NEB IH ×4 (03:47→20:59)
[2024-09-02] MEDS: METHYLPREDNISOLONE SOD SUCC 40 MG/ML IVP ×3 (03:48→20:52)
[2024-09-02] MEDS: VANCOMYCIN 1.5 GM/300 ML 1.5 GM/300 ML PIGGYBACK IVPB ×2 (04:07→15:59)
[2024-09-02] MEDS: CEFEPIME HCL 1 GM in 0.9 % SODIUM CHLORIDE Mini-bag 100 ML IVPB ×3 (05:52→22:29)
--- NOTE | 2024-09-02 06:30 | CRLHL7_ITS ---
For Patients: As a result of the Century Cures Act, medical imaging exams and procedure reports are released immediately into your electronic medical record. You may view this report before your referring provider. If you have questions, please contact your health care provider. INDICATION: Left leg swelling TECHNIQUE: Ultrasound venous duplex lower left extremity. Compression venous exam was performed using hernandez-scale, color Doppler, and spectral Doppler analysis. COMPARISON: None. FINDINGS: Sonographic imaging demonstrates the left common femoral, deep femoral, superficial femoral, popliteal, posterior tibial and greater saphenous and the contralateral right common femoral veins to be fully compressible with normal color Doppler blood flow. IMPRESSION: Normal left lower extremity venous ultrasound, no sign of deep venous thrombosis. Dictated by Bartolo Multani MD @ 09/02/2024 8:09:14 AM (Electronically Signed)
--- NOTE | 2024-09-02 06:46 | PC.NURSE ---
End of shift summary: Pt arrived to the floor from the ED at 0120. He is A&O, afebrile and VSS. TELE placed showing NSR with some occasional, short-lived flips into A. Fib. 2nd IV placed in right AC for CTA which was negative for PE. Pt has been dusky hernandez in color & cool/clammy. He was unable to void after receiving IVP Lasix in ED. Bladder scan showed a high of 636 mL and he was straight cathed for 800 mL. NS started @ 75 mL/hr & he received IV Vancomycin & IV Cefepime + scheduled nebs. No c/o acute pain but has chronic neck/head pain. LS notable for rhonchi and bibasilar crackles. JVD noted, aware. LL 2+ pitting edema, trace non-pitting in right ankle. Pt is Ax1 for ambulation. He is SOB at rest & with activity, requiring 2L NC to maintain air hunger & O2 sat > 875%. ECHO and LL US ordered for today. ?
--- NOTE | 2024-09-02 07:39 | PM.IMPN1 ---
Progress Note: A&P Assessment and plan (1) Acute hypoxemic respiratory failure: Problem details: combination of FLU A, CAP (STREP PNEUMO), COPD, CHF -appreciate RT starting highflow and working with patient to achieve best ventilation/oxygenation possible. Status: Acute (2) Sepsis: Problem details: RR>20, HR 120's at presentation. elevated lactate, INR>1.5 Now on high flow; martinez catheter; broad spectrum abx, tamiflu, steroids, nebs, RT support. hx of cardiac arrest - this is a high risk patient with significant comorbidities. Status: Acute (3) Influenza A: Problem details: -tamiflu started; antibiotics for pna, steroids for COPD, diuresis for CHF ... -pt high risk Status: Acute (4) Community acquired bacterial pneumonia: Problem details: -bilateral. Vanc/Cefepime/Azithro. +urine strep pneumo antigen. -HFO2 -follow labs/clinical response -w/strep pneumo risk of bacteremia high - pending blood, urine, sputum cultures Status: Acute (5) Acute heart failure with preserved ejection fraction (HFpEF): Problem details: -Acute on Chronic, Diastolic; normal EF, class III currently -likely d/t longstanding HTN and acute infections -trop/ischemia workup neg thus far -diuresis; oxygen support -echo reviewed from 06/10, not reordered at this time; trop negative, BNP already trending down but presented with big jump from baseline -optimize ventilation - on HFO2 as of am of 09/02 - more comfortable with this and iv diuresis/martinez placement Echocardiogram MAY 2024 Final Impressions: 1. LVEF estimate 60-65%. Normal LV size and wall thickness. 2. Normal RV size and global function. 3. No significant valvular abnormalities. 4. Normal RAP estimate. 5. Mildly dilated ascending aorta [4.2 cm]. 6. No LV thrombus [contrast study]. Status: Acute (6) Acute hypokalemia: Problem details: replace/follow Status: Acute (7) History of cardiac arrest: Problem details: -years ago per Status: Acute (8) Tobacco abuse: Problem details: 1.5-2 ppd Has not been interested in quitting despite encouragement Status: Acute (9) MDD (major depressive disorder): Problem details: per EMR, History of depression and anxiety that is been poorly treated in the past. He is currently on 90 mg of Cymbalta daily. He has not wanted to do referral to psychology or see a psychiatrist. He also has not wanted to make any other changes to his medication. That has seemed to help a little but not very much. Continue duloxetine Status: Acute (10) CAD (coronary artery disease): Problem details: Continue ASA, antihypertensives, statin Status: Acute (11) Hypertension: Problem details: Continue home medications At home, checks his pulse and oxygen level regularly, desaturates into 80s with activity Status: Acute (12) Hyperlipidemia: Problem details: Continue statin Status: Acute Subjective Date Seen: 09/02/24 Interval history: Daily Progress Note - Hospital Medicine Day #:2 CC: Acute Influenza A, Strep pneumo pneumonia (CAP), CHF (acute diastolic HFpEF excerbation), chronic COPD acute illness 24 HOUR UPDATE: Came to the floor about 0200 this morning. Has been sick for about a week. was admitted yesterday afternoon with FLU A and COPD excerbation. He has had cough; wheeze, extreme weakness and loss of appetite. He is about the same this morning when I rounded about 0730; ER interventions: rocephin, azithro, albuterol, methylprednisolone, tamiflu, fluid bolus with elevated lactate. CTA was done and shows no PE and bilateral lower lobe consolidation. Notable Labs, Micro, Rads, Interventions: CBC reflects that his white blood cell count last night, 11.45 is down to 7.59. As a smoker not surprising to see an elevated hemoglobin. 17.6 this morning. Platelets are normal. PH 7.44, pCO2 34. Potassium is borderline low at 3.5, however his other electrolytes and renal function are normal. His GFR is 100. His lactate, which was elevated to 3.4 is now normal His LFTs are essentially normal His CRP is rapidly increasing 0.5 up to 17 this morning. Procalcitonin is normal. Albumin is normal. Interestingly his BNP was 7600, and his baseline is 644 last May. I have reviewed echo from 3 months ago this was actually very reassuring with a normal ejection fraction normal findings without evidence of right sided heart failure or systolic dysfunction. UA shows 1+ ketones but was not obtained until this morning. Interestingly his urine strep pneumoniae antigen is positive. left lower extremity U/S was done at admission - NEG Urine culture is pending, blood culture is pending, sputum Gram stain is pending and sputum culture is in progress. HFO2 started this morning with RT. CTA from 09/02 1. No evidence of pulmonary embolism. 2. Bilateral lower lobe patchy consolidation, likely representing pneumonia. 3. Decreased size of the right apical peripherally calcified thick-walled cavitary lesion. Other findings related to history of known MAC, similar to prior. Objective: unkept; smells of tobacco; drylips; puffy legs (2+) sallow Vitals: reviewed see above Lungs: Clear. Cardiac: S1S2. Disposition/Potential discharge - will here for 3-4 days; may need TCU at discharge Today I spent 50minutes seeing the patient, reviewing Expanse and EPIC notes/diagnostics, discussing the care plan with our care time that includes social work, PT/OT, pharmacy, RT, custodial and documenting my impressions and plan in the medical record. Exam Const: Vital Signs, click to edit/add: Vital Signs - 24 hr 09/01/24 18:36 09/01/24 18:48 09/01/24 19:07 Temperature 96.9 F L Pulse Rate 127 H Pulse Rate [Left P ulse Oximeter] 126 H Pulse Rate [Pulse Oximeter] Respiratory Rate 28 H 33 H Blood Pressure Blood Pressure [Le ft Arm] Blood Pressure [Le ft Upper Arm] 128/104 H Blood Pressure [Ri ght Arm] Pulse Oximetry 90 86 L Oxygen Delivery Me thod Room Air Nasal Cannula Nasal Cannula Oxygen Flow Rate 2 2 09/01/24 19:20 09/01/24 19:21 09/01/24 19:40 Temperature Pulse Rate 117 H 117 H 121 H Pulse Rate [Left P ulse Oximeter] Pulse Rate [Pulse Oximeter] Respiratory Rate 23 28 H 24 Blood Pressure 129/112 H Blood Pressure [Le ft Arm] Blood Pressure [Le ft Upper Arm] Blood Pressure [Ri ght Arm] Pulse Oximetry 96 97 90 Oxygen Delivery Me thod Nasal Cannula Nasal Cannula Nasal Cannula Oxygen Flow Rate 2 2 2 09/01/24 19:41 09/01/24 20:00 09/01/24 20:01 Temperature Pulse Rate 124 H 119 H 104 H Pulse Rate [Left P ulse Oximeter] Pulse Rate [Pulse Oximeter] Respiratory Rate 32 H 33 H 26 H Blood Pressure 141/109 H 116/96 H Blood Pressure [Le ft Arm] Blood Pressure [Le ft Upper Arm] Blood Pressure [Ri ght Arm] Pulse Oximetry 91 92 92 Oxygen Delivery Me thod Nasal Cannula Nasal Cannula Nasal Cannula Oxygen Flow Rate 2 2 2 09/01/24 20:02 09/01/24 20:20 09/01/24 20:21 Temperature Pulse Rate 121 H 110 H 113 H Pulse Rate [Left P ulse Oximeter] Pulse Rate [Pulse Oximeter] Respiratory Rate 28 H 28 H 29 H Blood Pressure 97/83 Blood Pressure [Le ft Arm] Blood Pressure [Le ft Upper Arm] Blood Pressure [Ri ght Arm] Pulse Oximetry 92 90 90 Oxygen Delivery Me thod Oxygen Flow Rate 09/01/24 20:32 09/01/24 20:34 09/01/24 20:40 Temperature Pulse Rate 97 107 H 114 H Pulse Rate [Left P ulse Oximeter] Pulse Rate [Pulse Oximeter] Respiratory Rate Blood Pressure 95/82 109/92 H Blood Pressure [Le ft Arm] Blood Pressure [Le ft Upper Arm] Blood Pressure [Ri ght Arm] Pulse Oximetry 88 90 89 Oxygen Delivery Me thod Oxygen Flow Rate 09/01/24 20:41 09/01/24 21:01 09/01/24 21:02 Temperature Pulse Rate 109 H 123 H Pulse Rate [Left P ulse Oximeter] Pulse Rate [Pulse Oximeter] Respiratory Rate Blood Pressure 101/83 99/82 Blood Pressure [Le ft Arm] Blood Pressure [Le ft Upper Arm] Blood Pressure [Ri ght Arm] Pulse Oximetry 90 91 Oxygen Delivery Me thod Oxygen Flow Rate 09/01/24 21:20 09/01/24 21:23 09/01/24 21:24 Temperature Pulse Rate 107 H 124 H 117 H Pulse Rate [Left P ulse Oximeter] Pulse Rate [Pulse Oximeter] Respiratory Rate Blood Pressure 118/78 Blood Pressure [Le ft Arm] Blood Pressure [Le ft Upper Arm] Blood Pressure [Ri ght Arm] Pulse Oximetry 89 87 L 89 Oxygen Delivery Me thod Oxygen Flow Rate 09/01/24 21:40 09/01/24 21:41 09/01/24 21:42 Temperature Pulse Rate 129 H 108 H 116 H Pulse Rate [Left P ulse Oximeter] Pulse Rate [Pulse Oximeter] Respiratory Rate Blood Pressure 116/91 H Blood Pressure [Le ft Arm] Blood Pressure [Le ft Upper Arm] Blood Pressure [Ri ght Arm] Pulse Oximetry 90 91 91 Oxygen Delivery Me thod Oxygen Flow Rate 09/01/24 22:00 09/01/24 22:01 09/01/24 22:20 Temperature Pulse Rate 127 H 125 H 115 H Pulse Rate [Left P ulse Oximeter] Pulse Rate [Pulse Oximeter] Respiratory Rate Blood Pressure 113/96 H Blood Pressure [Le ft Arm] Blood Pressure [Le ft Upper Arm] Blood Pressure [Ri ght Arm] Pulse Oximetry 90 90 89 Oxygen Delivery Me thod Oxygen Flow Rate 09/01/24 22:21 09/01/24 22:24 09/01/24 22:40 Temperature Pulse Rate 121 H 119 H 98 Pulse Rate [Left P ulse Oximeter] Pulse Rate [Pulse Oximeter] Respiratory Rate Blood Pressure 98/77 109/92 H Blood Pressure [Le ft Arm] Blood Pressure [Le ft Upper Arm] Blood Pressure [Ri ght Arm] Pulse Oximetry 89 77 L 89 Oxygen Delivery Me thod Oxygen Flow Rate 09/01/24 22:41 09/01/24 23:00 09/01/24 23:01 Temperature Pulse Rate 100 76 75 Pulse Rate [Left P ulse Oximeter] Pulse Rate [Pulse Oximeter] Respiratory Rate Blood Pressure 111/93 H 111/83 Blood Pressure [Le ft Arm] Blood Pressure [Le ft Upper Arm] Blood Pressure [Ri ght Arm] Pulse Oximetry 91 91 91 Oxygen Delivery Me thod Nasal Cannula Nasal Cannula Oxygen Flow Rate 3 3 09/01/24 23:20 09/01/24 23:21 09/01/24 23:40 Temperature Pulse Rate 73 76 73 Pulse Rate [Left P ulse Oximeter] Pulse Rate [Pulse Oximeter] Respiratory Rate Blood Pressure 99/78 Blood Pressure [Le ft Arm] Blood Pressure [Le ft Upper Arm] Blood Pressure [Ri ght Arm] Pulse Oximetry 91 92 91 Oxygen Delivery Me thod Nasal Cannula Nasal Cannula Nasal Cannula Oxygen Flow Rate 3 3 3 09/01/24 23:41 09/01/24 23:42 09/02/24 00:00 Temperature 96.5 F L Pulse Rate 76 73 75 Pulse Rate [Left P ulse Oximeter] Pulse Rate [Pulse Oximeter] Respiratory Rate Blood Pressure 108/80 Blood Pressure [Le ft Arm] Blood Pressure [Le ft Upper Arm] Blood Pressure [Ri ght Arm] Pulse Oximetry 91 91 92 Oxygen Delivery Me thod Nasal Cannula Nasal Cannula Nasal Cannula Oxygen Flow Rate 3 3 3 09/02/24 00:01 09/02/24 00:20 09/02/24 00:21 Temperature Pulse Rate 72 76 79 Pulse Rate [Left P ulse Oximeter] Pulse Rate [Pulse Oximeter] Respiratory Rate 18 20 Blood Pressure 107/83 115/87 Blood Pressure [Le ft Arm] Blood Pressure [Le ft Upper Arm] Blood Pressure [Ri ght Arm] Pulse Oximetry 92 92 92 Oxygen Delivery Me thod Nasal Cannula Nasal Cannula Nasal Cannula Oxygen Flow Rate 3 3 3 09/02/24 00:36 09/02/24 00:38 09/02/24 00:40 Temperature Pulse Rate 75 Pulse Rate [Left P ulse Oximeter] Pulse Rate [Pulse Oximeter] Respiratory Rate 20 Blood Pressure Blood Pressure [Le ft Arm] Blood Pressure [Le ft Upper Arm] Blood Pressure [Ri ght Arm] Pulse Oximetry 91 93 Oxygen Delivery Me thod Nasal Cannula Nasal Cannula Nasal Cannula Oxygen Flow Rate 3 3 3 09/02/24 00:41 09/02/24 01:00 09/02/24 01:01 Temperature Pulse Rate 75 71 82 Pulse Rate [Left P ulse Oximeter] Pulse Rate [Pulse Oximeter] Respiratory Rate 18 16 Blood Pressure 118/88 112/87 Blood Pressure [Le ft Arm] Blood Pressure [Le ft Upper Arm] Blood Pressure [Ri ght Arm] Pulse Oximetry 93 93 92 Oxygen Delivery Me thod Nasal Cannula Nasal Cannula Nasal Cannula Oxygen Flow Rate 3 3 3 09/02/24 01:20 09/02/24 01:20 09/02/24 04:16 Temperature 97.7 F Pulse Rate Pulse Rate [Left P ulse Oximeter] Pulse Rate [Pulse Oximeter] 88 Respiratory Rate 22 22 Blood Pressure Blood Pressure [Le ft Arm] Blood Pressure [Le ft Upper Arm] Blood Pressure [Ri ght Arm] 121/96 H Pulse Oximetry 88 88 88 Oxygen Delivery Me thod Nasal Cannula Nasal Cannula Oxygen Flow Rate 2 2 09/02/24 04:26 09/02/24 05:59 09/02/24 06:00 Temperature 97.2 F L 97.2 F L Pulse Rate 83 Pulse Rate [Left P ulse Oximeter] Pulse Rate [Pulse Oximeter] 95 95 Respiratory Rate 22 22 Blood Pressure Blood Pressure [Le ft Arm] 125/86 Blood Pressure [Le ft Upper Arm] Blood Pressure [Ri ght Arm] 125/86 Pulse Oximetry 86 L 88 Oxygen Delivery Me thod Room Air Room Air Oxygen Flow Rate 2 Labs Labs: Laboratory Results - last 24 hr 09/01/24 09/01/24 09/01/24 18:50 21:06 21:22 WBC 11.45 H RBC 6.05 H Hgb 20.0 H Hct 59.4 H MCV 98 MCH 33 MCHC 34 RDW Coeff of Yelena 13.6 Plt Count 141 Neut % (Auto) 79.1 H Lymph % (Auto) 11.4 L Borden % (Auto) 8.9 Eos % (Auto) 0.0 Baso % (Auto) 0.3 Neut # (Auto) 9.10 H Lymph # (Auto) 1.30 Borden # (Auto) 1.00 H Eos # (Auto) 0.00 Baso # (Auto) 0.00 Abs Immat Gran (auto) 0.00 Imm/Tot Granulo (auto) 0.3 INR 1.29 H VBG pH 7.452 H VBG pCO2 35 L VBG pO2 33.0 VBG HCO3 25 Sodium 138 Potassium 4.0 Chloride 100 Carbon Dioxide 30 Anion Gap 8 BUN 25 Creatinine 0.9 Estimated Creat Clear 68.40 Estimated GFR 93 Glucose 112 Lactate 3.4 H 2.6 H 2.6 H Calcium 10.0 Troponin I 0.04 C-Reactive Protein 0.5 NT-Pro-B Natriuret Pep 9290 SARS-CoV-2 (PCR) Influenza Type A (PCR) Influenza Type B (PCR) RSV (PCR) 09/01/24 09/01/24 22:45 Unknown WBC RBC Hgb Hct MCV MCH MCHC RDW Coeff of Yelena Plt Count Neut % (Auto) Lymph % (Auto) Borden % (Auto) Eos % (Auto) Baso % (Auto) Neut # (Auto) Lymph # (Auto) Borden # (Auto) Eos # (Auto) Baso # (Auto) Abs Immat Gran (auto) Imm/Tot Granulo (auto) INR VBG pH 7.371 VBG pCO2 37 L VBG pO2 53.9 H VBG HCO3 22 Sodium 136 Potassium 3.5 L Chloride 104 Carbon Dioxide 20 Anion Gap 12 BUN 39 H Creatinine 0.7 Estimated Creat Clear 68.40 Estimated GFR 100 Glucose 126 H Lactate 2.1 H Calcium 8.3 L Troponin I 0.04 C-Reactive Protein NT-Pro-B Natriuret Pep 7640 SARS-CoV-2 (PCR) Negative SARS-CoV-2 Influenza Type A (PCR) POSITIVE PCR FLU A A Influenza Type B (PCR) Negative PCR FLU B RSV (PCR) Negative PCR RSV
[2024-09-02 08:04] LABS: HCO3 VBG 23 mmol/L (21-28); Lactate* 1.8 mmol/L (0.5-1.9); PCO2 VBG 34 mmHG (40-50); PO2 VBG 52.4 mmHG (25-47); pH VBG 7.439 (7.32-7.43)
[2024-09-02 08:06] LABS: Basophils Absolute Auto 0.01 K/uL (0.00-0.30); Basophils Percent Auto 0.1 % (0.0-3.0); Hemoglobin* 17.6 gm/dL (13.5-17.5); Immature Granulocytes Abs Auto 0.02 K/uL (0.00-0.30); Immature Granulocytes Pct Auto 0.3 %; Lymphocytes Percent Auto 10.4 % (20-44); Mean Corpuscular HGB Conc 34 gm/dL (32-36); Mean Corpuscular Hemoglobin 34 pg (26-34); Mean Corpuscular Volume 99 fL (80-100); Monocytes Percent Auto 1.4 % (0.0-11.0); Neutrophils Percent Auto 87.8 % (42.0-72.0); Platelet Count* 142 K/uL (140-440); RDW Coefficient of Variation % 13.8 % (11.5-15.5); Red Blood Count 5.24 m/uL (4.30-5.90); Slide Review Reflex No; White Blood Count* 7.59 K/uL (4.50-11.00)
[2024-09-02] MEDS: ASPIRIN 81 MG TABLET EC PO (08:39)
[2024-09-02] MEDS: OSELTAMIVIR PHOSPHATE 75 MG CAPSULE PO ×2 (08:39→20:59)
[2024-09-02] MEDS: SODIUM CHLORIDE 0.9 % (FLUSH) 10 ML SYRINGE 5 ML IVF ×3 (08:39→21:00)
[2024-09-02] MEDS: guaiFENesin 600 MG TAB.ER.12H 1200 MG PO ×2 (08:39→20:58)
[2024-09-02] MEDS: FUROSEMIDE 10 MG/ML inj 40 MG IVP ×2 (08:39→16:27)
[2024-09-02 08:42] LABS: Chloride* 104 mmol/L (96-114)
[2024-09-02 08:43] LABS: Albumin* 3.4 g/dL (3.3-5.0); Sodium* 136 mmol/L (135-149)
[2024-09-02 08:44] LABS: Potassium* 3.5 mmol/L (3.6-5.1)
[2024-09-02 08:45] LABS: Creatinine* 0.7 mg/dL (0.5-1.5); Estimated Glomerular Filt Rate 100 ml/min
[2024-09-02 08:46] LABS: Alanine Aminotransferase* 11 U/L (4-50); Alkaline Phosphatase* 47 U/L (40-150); Anion Gap 10 mEq/L (7-15); Aspartate Amino Transferase* 26 U/L (12-35); Bilirubin Direct* 0.7 mg/dL (0.0-0.5); Bilirubin Total* 1.1 mg/dL (0.1-1.5); Blood Urea Nitrogen* 35 mg/dL (7-30); Carbon Dioxide* 22 mmol/L (20-32); Glucose* 137 mg/dL (60-115); Phosphorus* 3.5 mg/dL (2.5-4.5); Total Protein* 6.3 g/dL (6.0-8.3)
[2024-09-02 08:47] LABS: Calcium* 8.2 mg/dL (8.4-10.6)
[2024-09-02 08:58] LABS: Troponin I* 0.03 ng/mL (0.01-0.04)
[2024-09-02 09:03] LABS: Procalcitonin* 0.11 ng/mL (<0.50)
[2024-09-02 09:25] LABS: NT Pro B Type NatriureticPept* 4170 pg/mL
[2024-09-02 09:59] LABS: Appearance Urine Clear (Clear); Bilirubin Urine Negative (Negative); Blood Urine Trace-intact (Negative); Color Urine Yellow (Yellow); Glucose Urine Negative (Negative); Ketones Urine 1+ (Negative); Leukocyte Esterase Urine Negative (Negative); Nitrite Urine Negative (Negative); Protein Urine Negative (Negative); pH Urine 5.5 (5.0-8.5)
[2024-09-02 10:14] LABS: Legionella pneumo Ag Urine L. pneumo Negative (Negative); S pneumo Ag Urine S. pneumo POSITIVE (Negative)
[2024-09-02 10:48] LABS: RBC Urine 0-2 (0-2); WBC Urine 0-2 (0-5)
[2024-09-02 10:49] LABS: Squamous Epithelial Cell Urine Few (None-Few)
--- NOTE | 2024-09-02 11:06 | REH.PT ---
Orders received, RN consulted. Attempted to see pt for PT eval this am. Pt on high flow O2 and asleep upon arrival. PT to follow up when pt is awake and appropriate to participate.
[2024-09-02 12:47] LABS: Magnesium* 2.4 mg/dL (1.5-2.6)
[2024-09-02] MEDS: DULOXETINE 30 MG CAPSULE DR 60 MG PO (13:09)
[2024-09-02] MEDS: DULOXETINE 30 MG CAPSULE DR PO (13:09)
[2024-09-02] MEDS: POTASSIUM CHLORIDE 10 MEQ/100 ML PIGGYBACK 100 MEQ IVPB ×2 (13:10→14:38)
[2024-09-02] MEDS: POTASSIUM BICARB 25 MEQ EFFERVESCENT TAB PO (16:26)
--- NOTE | 2024-09-02 18:56 | PC.NURSE ---
Pt alert and oriented. Pt pleasant and cooperative. Pt had no complaints of pain. PT?s VS WNL, Pt on 2 Liters oxygen when eating and on High Flow otherwise settings 35,25,36. Pt had a martinez catheter placed this morning. Per RT Pt?s O2 saturation should be 86-92%.?Pt ate supper and tolerated well.
[2024-09-02] MEDS: AZITHROMYCIN 500 MG in 0.9 % SODIUM CHLORIDE 250 ml 250 ML 255 MG IVPB (20:52)
[2024-09-03] VITALS (17 sets, daily range): BP systolic 124–139; BP diastolic 78–96; PULSE 75–92; RESP 20–24; TEMP 36.6–36.7; O2SAT 85–94
[2024-09-03] MEDS: METHYLPREDNISOLONE SOD SUCC 40 MG/ML IVP (03:57)
[2024-09-03] MEDS: VANCOMYCIN 1.5 GM/300 ML 1.5 GM/300 ML PIGGYBACK IVPB (04:01)
[2024-09-03] MEDS: CEFEPIME HCL 1 GM in 0.9 % SODIUM CHLORIDE Mini-bag 100 ML IVPB (06:27)
[2024-09-03 06:50] LABS: HCO3 VBG 29 mmol/L (21-28); PCO2 VBG 43 mmHG (40-50); PO2 VBG 36.9 mmHG (25-47)
[2024-09-03 07:01] LABS: Basophils Absolute Auto 0.03 K/uL (0.00-0.30); Basophils Percent Auto 0.3 % (0.0-3.0); Hematocrit 49.3 % (37.0-53.0); Hemoglobin* 16.7 gm/dL (13.5-17.5); Immature Granulocytes Abs Auto 0.05 K/uL (0.00-0.30); Immature Granulocytes Pct Auto 0.5 %; Lymphocytes Percent Auto 7.7 % (20-44); Mean Corpuscular HGB Conc 34 gm/dL (32-36); Mean Corpuscular Hemoglobin 34 pg (26-34); Mean Corpuscular Volume 100 fL (80-100); Monocytes Percent Auto 4.7 % (0.0-11.0); Neutrophils Percent Auto 86.8 % (42.0-72.0); Platelet Count* 161 K/uL (140-440); RDW Coefficient of Variation % 13.7 % (11.5-15.5); Red Blood Count 4.95 m/uL (4.30-5.90); Slide Review Reflex No; White Blood Count* 10.54 K/uL (4.50-11.00)
[2024-09-03 07:10] LABS: INR 1.24 (0.91-1.10); Prothrombin Time 16.4 Seconds
[2024-09-03 07:11] LABS: Albumin* 3.3 g/dL (3.3-5.0); Chloride* 97 mmol/L (96-114); Sodium* 133 mmol/L (135-149)
[2024-09-03 07:12] LABS: Potassium* 3.9 mmol/L (3.6-5.1)
[2024-09-03 07:14] LABS: Alkaline Phosphatase* 37 U/L (40-150); Anion Gap 8 mEq/L (7-15); Aspartate Amino Transferase* 29 U/L (12-35); Bilirubin Total* 1.1 mg/dL (0.1-1.5); Blood Urea Nitrogen* 34 mg/dL (7-30); Carbon Dioxide* 28 mmol/L (20-32); Creatinine* 0.8 mg/dL (0.5-1.5); Estimated Glomerular Filt Rate 96 ml/min; Total Protein* 6.2 g/dL (6.0-8.3)
[2024-09-03 07:15] LABS: Alanine Aminotransferase* 9 U/L (4-50); Calcium* 8.3 mg/dL (8.4-10.6); Glucose* 116 mg/dL (60-115); Magnesium* 2.3 mg/dL (1.5-2.6)
[2024-09-03 07:17] LABS: C Reactive Protein* 8.3 mg/dL (0.5-1.0)
--- NOTE | 2024-09-03 07:22 | P.IMPN_ITS ---
Progress Note: A&P Assessment and plan (1) Acute hypoxemic respiratory failure: Problem details: combination of FLU A, CAP (STREP PNEUMO), COPD, CHF -appreciate RT starting highflow and working with patient to achieve best ventilation/oxygenation possible. -IV broad spectrum abx to rocephin, oral azithromycin, IV to oral corticosteroids, IV to oral lasix (09/03) Status: Acute (2) Sepsis: Problem details: RR>20, HR 120's at presentation. elevated lactate, INR>1.5 - improved. Now on high flow; martinez catheter; broad spectrum abx, tamiflu, steroids, nebs, RT support. hx of cardiac arrest - this is a high risk patient with significant comorbidities. Status: Acute (3) Influenza A: Problem details: -tamiflu started; antibiotics for pna, steroids for COPD, diuresis for CHF ... -pt high risk Status: Acute (4) Community acquired bacterial pneumonia: Problem details: -bilateral. Vanc/Cefepime/Azithro - changing to Rocephin/Azithromycin; +urine strep pneumo antigen. -HFO2 -follow labs/clinical response -w/strep pneumo risk of bacteremia high - pending blood, urine, sputum cultures neg to date Status: Acute (5) Acute heart failure with preserved ejection fraction (HFpEF): Problem details: -Acute on Chronic, Diastolic; normal EF, class III currently -likely d/t longstanding HTN and acute infections -trop/ischemia workup neg thus far -diuresis; oxygen support - 09/03 - IV lasix converted to oral lasix, oral potassium -echo reviewed from 06/10, not reordered at this time; trop negative, BNP alre daniel trending down but presented with big jump from baseline -optimize ventilation - on HFO2 as of am of 09/02 - more comfortable with this and iv diuresis/martinez placement Echocardiogram MAY 2024 Final Impressions: 1. LVEF estimate 60-65%. Normal LV size and wall thickness. 2. Normal RV size and global function. 3. No significant valvular abnormalities. 4. Normal RAP estimate. 5. Mildly dilated ascending aorta [4.2 cm]. 6. No LV thrombus [contrast study]. Status: Acute (6) Acute hypokalemia: Problem details: replace/follow Status: Acute (7) History of cardiac arrest: Problem details: -years ago per Status: Acute (8) Tobacco abuse: Problem details: 1.5-2 ppd Has not been interested in quitting despite encouragement Status: Acute (9) MDD (major depressive disorder): Problem details: per EMR, History of depression and anxiety that is been poorly treated in the past. He is currently on 90 mg of Cymbalta daily. He has not wanted to do referral to psychology or see a psychiatrist. He also has not wanted to make any other changes to his medication. That has seemed to help a little but not very much. Continue duloxetine Status: Acute (10) CAD (coronary artery disease): Problem details: Continue ASA, antihypertensives, statin Status: Acute (11) Hypertension: Problem details: Continue home medications At home, checks his pulse and oxygen level regularly, desaturates into 80s with activity Status: Acute (12) Hyperlipidemia: Problem details: Continue statin Status: Acute Subjective Date Seen: 09/03/24 Interval history: Daily Progress Note - Hospital Medicine Day # 3 CC: Acute Influenza A, Strep pneumo pneumonia (CAP), CHF (acute diastolic HFpEF excerbation), chronic COPD acute illness 24 HOUR UPDATE: stable night. no new changes. remains on HFO2. Talking, asking about his . Notable Labs, Micro, Rads, Interventions: Continues high-flow nasal cannula humidified oxygen support. Sats were 87-92%. He remains afebrile. Blood pressures are in the normal range in stable. His pulses been in the 70s. He continues to be mildly tachypneic in the low 20s. His CBC remains stable without an elevated white blood cell count. His sodium is dropped to 133. His potassium has corrected. His renal function is stable. CRP is down trending. 17.0 down to 8.3 Sputum culture pending. Urine cultures blood cultures remain negative. left lower extremity U/S was done at admission - NEG Urine culture is pending, blood culture is pending, sputum Gram stain is pending and sputum culture is in progress. Objective: unkept, not septic appearing. Vitals: reviewed see above Lungs: improved aeration. Cardiac: S1S2. edema in the legs is much improved. Disposition/Potential discharge - will be here for 3-4 days; may need TCU at discharge Today I spent 50minutes seeing the patient, reviewing Expanse and EPIC notes/diagnostics, discussing the care plan with our care time that includes social work, PT/OT, pharmacy, RT, half-way and documenting my impressions and plan in the medical record. Exam Const: Vital Signs, click to edit/add: Vital Signs - 24 hr 09/02/24 07:56 09/02/24 07:58 09/02/24 08:41 Temperature 97.7 F Pulse Rate Pulse Rate [Pulse Oximeter] 83 Respiratory Rate 22 Blood Pressure [Le ft Arm] 124/86 Blood Pressure [Ri ght Arm] Pulse Oximetry 90 90 Oxygen Delivery Me thod Room Air Oxygen Flow Rate Fraction of Inspir ed Oxygen 25 09/02/24 09:11 09/02/24 11:17 09/02/24 11:17 Temperature 97.8 F Pulse Rate Pulse Rate [Pulse Oximeter] 84 Respiratory Rate 22 Blood Pressure [Le ft Arm] 107/74 Blood Pressure [Ri ght Arm] Pulse Oximetry 90 Oxygen Delivery Me thod Room Air Oxygen Flow Rate 35 35 Fraction of Inspir ed Oxygen 25 25 25 09/02/24 13:16 09/02/24 14:44 09/02/24 14:44 Temperature 97.3 F L Pulse Rate Pulse Rate [Pulse Oximeter] 76 Respiratory Rate 22 Blood Pressure [Le ft Arm] 132/87 Blood Pressure [Ri ght Arm] Pulse Oximetry 92 Oxygen Delivery Me thod High Flow Nasal Ca nnula Oxygen Flow Rate 35 Fraction of Inspir ed Oxygen 25 25 25 09/02/24 15:00 09/02/24 15:00 09/02/24 15:02 Temperature Pulse Rate 76 Pulse Rate [Pulse Oximeter] 76 Respiratory Rate 22 Blood Pressure [Le ft Arm] Blood Pressure [Ri ght Arm] Pulse Oximetry 92 Oxygen Delivery Me thod Oxygen Flow Rate Fraction of Inspir ed Oxygen 09/02/24 17:19 09/02/24 19:00 09/02/24 20:48 Temperature 98.0 F Pulse Rate Pulse Rate [Pulse Oximeter] 81 Respiratory Rate 20 Blood Pressure [Le ft Arm] 146/94 H Blood Pressure [Ri ght Arm] Pulse Oximetry 89 Oxygen Delivery Me thod High Flow Nasal Ca nnula Oxygen Flow Rate 35 Fraction of Inspir ed Oxygen 25 25 25 09/02/24 20:51 09/02/24 22:34 09/02/24 22:34 Temperature 98.0 F Pulse Rate Pulse Rate [Pulse Oximeter] 84 Respiratory Rate 22 Blood Pressure [Le ft Arm] Blood Pressure [Ri ght Arm] 125/90 H Pulse Oximetry 88 Oxygen Delivery Me thod High Flow Nasal Ca nnula Oxygen Flow Rate 35 Fraction of Inspir ed Oxygen 25 25 25 09/02/24 23:00 09/02/24 23:00 09/02/24 23:00 Temperature Pulse Rate 80 Pulse Rate [Pulse Oximeter] Respiratory Rate 22 Blood Pressure [Le ft Arm] Blood Pressure [Ri ght Arm] Pulse Oximetry 90 Oxygen Delivery Me thod Oxygen Flow Rate Fraction of Inspir ed Oxygen 09/03/24 01:00 09/03/24 03:00 09/03/24 03:00 Temperature 97.9 F Pulse Rate Pulse Rate [Pulse Oximeter] 77 Respiratory Rate 22 Blood Pressure [Le ft Arm] 135/88 Blood Pressure [Ri ght Arm] Pulse Oximetry 87 L Oxygen Delivery Me thod High Flow Nasal Ca nnula Oxygen Flow Rate 35 Fraction of Inspir ed Oxygen 25 25 25 09/03/24 05:00 Temperature Pulse Rate Pulse Rate [Pulse Oximeter] Respiratory Rate Blood Pressure [Le ft Arm] Blood Pressure [Ri ght Arm] Pulse Oximetry Oxygen Delivery Me thod Oxygen Flow Rate Fraction of Inspir ed Oxygen 25 Labs Labs: Laboratory Results - last 24 hr 09/02/24 09/02/24 09/02/24 08:00 08:25 12:23 WBC 7.59 RBC 5.24 Hgb 17.6 H Hct 52.0 MCV 99 MCH 34 MCHC 34 RDW Coeff of Yelena 13.8 Plt Count 142 Neut % (Auto) 87.8 H Lymph % (Auto) 10.4 L [place] % (Auto) 1.4 Eos % (Auto) 0.0 Baso % (Auto) 0.1 Neut # (Auto) 6.70 Lymph # (Auto) 0.80 L [place] # (Auto) 0.10 Eos # (Auto) 0.00 Baso # (Auto) 0.01 Abs Immat Gran (auto) 0.02 Imm/Tot Granulo (auto) 0.3 VBG pH 7.439 H VBG pCO2 34 L VBG pO2 52.4 H VBG HCO3 23 Sodium 136 Potassium 3.5 L Chloride 104 Carbon Dioxide 22 Anion Gap 10 BUN 35 H Creatinine 0.7 Estimated Creat Clear 68.40 Estimated GFR 100 Glucose 137 H Lactate 1.8 Calcium 8.2 L Phosphorus 3.5 Magnesium 2.4 Total Bilirubin 1.1 Direct Bilirubin 0.7 H AST 26 ALT 11 Alkaline Phosphatase 47 Troponin I 0.03 C-Reactive Protein 17.0 H NT-Pro-B Natriuret Pep 4170 Total Protein 6.3 Albumin 3.4 Procalcitonin 0.11 TSH 0.210 L Urine Color Yellow Urine Appearance Clear Urine pH 5.5 Ur Specific [place] 1.020 Urine Protein Negative Urine Glucose (UA) Negative Urine Ketones 1+ A Urine Blood Trace-intact A Urine Nitrite Negative Urine Bilirubin Negative Urine Urobilinogen 1.0 Ur Leukocyte Esterase Negative Urine RBC 0-2 Urine WBC 0-2 Ur Squamous Epith Cells Few Urine Bacteria None Urine L. pneumophilia Ag L. pneumo Negative Urine Strep pneumoniae Ag S. pneumo POSITIVE A Lab Acknowledgement Test Added 09/03/24 05:50 WBC 10.54 RBC 4.95 Hgb 16.7 Hct 49.3 MCV 100 MCH 34 MCHC 34 RDW Coeff of Yelena 13.7 Plt Count 161 Neut % (Auto) 86.8 H Lymph % (Auto) 7.7 L [place] % (Auto) 4.7 Eos % (Auto) 0.0 Baso % (Auto) 0.3 Neut # (Auto) 9.10 H Lymph # (Auto) 0.80 L [place] # (Auto) 0.50 Eos # (Auto) 0.00 Baso # (Auto) 0.03 Abs Immat Gran (auto) 0.05 Imm/Tot Granulo (auto) 0.5 VBG pH 7.440 H VBG pCO2 43 VBG pO2 36.9 VBG HCO3 29 H Sodium 133 L Potassium 3.9 Chloride 97 Carbon Dioxide 28 Anion Gap 8 BUN 34 H Creatinine 0.8 Estimated Creat Clear 68.40 Estimated GFR 96 Glucose 116 H Lactate Calcium 8.3 L Phosphorus Magnesium 2.3 Total Bilirubin 1.1 Direct Bilirubin AST 29 ALT 9 Alkaline Phosphatase 37 L Troponin I C-Reactive Protein 8.3 H NT-Pro-B Natriuret Pep Total Protein 6.2 Albumin 3.3 Procalcitonin TSH Urine Color Urine Appearance Urine pH Ur Specific [place] Urine Protein Urine Glucose (UA) Urine Ketones Urine Blood Urine Nitrite Urine Bilirubin Urine Urobilinogen Ur Leukocyte Esterase Urine RBC Urine WBC Ur Squamous Epith Cells Urine Bacteria Urine L. pneumophilia Ag Urine Strep pneumoniae Ag Lab Acknowledgement
--- NOTE | 2024-09-03 07:40 | PC.NURSE ---
[id number]: Pt AxOx4, cooperative, and pleasant. Pt reported no pain throughout the shift. Pt was able to sleep for majority of shift. Pt remained vitally stable on High Flow with settings 35-25-36. Sats ranging 87-90. Sepulveda in place that is patent and draining. SCDs in place. Pt appears resting with call light in reach. ?
[2024-09-03] MEDS: POTASSIUM CHLORIDE 10 MEQ CAPSULE ER 20 MEQ PO ×2 (10:34→18:52)
[2024-09-03] MEDS: IPRAT-ALBUT 0.5-2.5 MG/3 ML NEB 1 NEB IH ×3 (10:34→21:04)
[2024-09-03] MEDS: predniSONE 20 MG TABLET 40 MG PO (10:34)
[2024-09-03] MEDS: ASPIRIN 81 MG TABLET EC PO (10:35)
[2024-09-03] MEDS: DULOXETINE 30 MG CAPSULE DR 90 MG PO (10:35)
[2024-09-03] MEDS: OSELTAMIVIR PHOSPHATE 75 MG CAPSULE PO ×2 (10:37→21:04)
[2024-09-03] MEDS: guaiFENesin 600 MG TAB.ER.12H 1200 MG PO ×2 (10:37→21:04)
[2024-09-03] MEDS: FUROSEMIDE 40 MG TABLET PO ×2 (10:37→16:37)
[2024-09-03] MEDS: SODIUM CHLORIDE 0.9 % (FLUSH) 10 ML SYRINGE 5 ML IVF ×2 (10:45→21:04)
--- NOTE | 2024-09-03 16:25 | PC.NURSE ---
patient rested most of day in bed on HFNC. HFNC titrate up to achieve desired SPo2 levels. Patient denied pain and nausea. Smoking cessation education provided thought patient not accepting at this time. Sepulveda d/c'd at 2:45 pm will need to void by 10:45pm. pt in chair in room at this time comfortable. Report given to Evie BEST all questions answered.
[2024-09-03] MEDS: cefTRIAXone 1 GM in 0.9 % SODIUM CHLORIDE Mini-bag 100 ML IVPB (16:37)
--- NOTE | 2024-09-03 18:35 | RESP.RT ---
Patient has been on .25HFNC@35Lpm and is able to use the Aerobika independently. We can target SATs of 88-92%. His SATs drop with activity.
[2024-09-03] MEDS: Budesonide-Formoterol 160-4.5 mcg/actuation HFA aerosol inhaler 2 EACH IH (21:03)
[2024-09-03] MEDS: AZITHROMYCIN 250 MG TABLET 500 MG PO (21:04)
[2024-09-04] VITALS (16 sets, daily range): BP systolic 129–148; BP diastolic 77–94; PULSE 73–103; RESP 20–26; TEMP 36.6–36.9; O2SAT 86–91
[2024-09-04] MEDS: IPRAT-ALBUT 0.5-2.5 MG/3 ML NEB 1 NEB IH ×4 (03:18→20:35)
--- NOTE | 2024-09-04 06:14 | PC.NURSE ---
Shift note: Pt continue on Hyflo at 35L,250% flow to maintain O2 between 86 and 92% and temperature of 36. Patient is pleasant, alert and oriented. Vitally stable. Patient voided about 480ml at 2000. Patient had adequate sleep.
[2024-09-04 06:22] LABS: HCO3 VBG 28 mmol/L (21-28); PCO2 VBG 35 mmHG (40-50); PO2 VBG 46.3 mmHG (25-47)
--- NOTE | 2024-09-04 07:00 | CRLHL7_ITS ---
For Patients: As a result of the Century Cures Act, medical imaging exams and procedure reports are released immediately into your electronic medical record. You may view this report before your referring provider. If you have questions, please contact your health care provider. INDICATION: FOLLOWING PNA, HEART FAILURE. (Sic) COMPARISON: 09/01/2024 and 05/25/2024. Interval chest CT dated 09/02/2024. TECHNIQUE: 1 view. FINDINGS: The left lateral costophrenic angle is excluded from the field of view. Medical Devices: None. Lung Volumes: Adequate inspiration. No significant atelectasis. Lungs: No focal consolidation. Re-demonstration a right paramediastinal apical cavitary lesion. Please also refer to the chest CT report of 09/02/2024 for further description. Pleura and Pleural spaces: No significant pleural effusion. Chronic blunting of the right lateral costophrenic angle consistent with fibrosis. No pneumothorax. Mediastinum: Stable cardiomediastinal silhouette. Bony Thorax and Soft Tissues: No significant incidental findings. IMPRESSION: No focal pulmonary consolidation to indicate pneumonia. Incidental findings described in the body of the report. Dictated by Kennedy Ruelas MD @ 09/04/2024 7:34:50 AM (Electronically Signed)
--- NOTE | 2024-09-04 08:14 | P.IMPN_ITS ---
Progress Note: A&P Assessment and plan (1) Acute hypoxemic respiratory failure: Problem details: combination of FLU A, CAP (STREP PNEUMO), COPD, CHF -appreciate RT starting highflow and working with patient to achieve best ventilation/oxygenation possible. -(09/03) IV broad spectrum abx (cefepime, vanc, azithro) was changed to rocephin, oral azithromycin, IV to oral corticosteroids, IV to oral lasix, oral tamiflu continued -(09/04) d/w with RT - home oxygen is a significant risk. bearded man who smokes indoors 2 ppd who may/may not remove oxygen to smoke .... consider his target POX is likely 86-88% and relying on nebs and aerobika device at home may be the best option. Status: Acute (2) Sepsis: Problem details: RR>20, HR 120's at presentation. elevated lactate, INR>1.5 - improved. Now on high flow; martinez catheter d/c 09/03; broad spectrum abx (narrowed 09/03), tamiflu, steroids (IV to oral on 09/03), nebs, RT support. hx of cardiac arrest, hx of MAC pneumonia, hx of pulmonary fibrosis and current smoker - this continues to be high risk patient with significant comorbidities. Status: Acute (3) Influenza A: Problem details: -tamiflu started; antibiotics for pna, steroids for COPD, diuresis for CHF ... -pt high risk Status: Acute (4) Community acquired bacterial pneumonia: Problem details: -bilateral. Vanc/Cefepime/Azithro - changing to Rocephin/Azithromycin; +urine strep pneumo antigen. -HFO2 -follow labs/clinical response -w/strep pneumo risk of bacteremia high - pending blood, urine, sputum cultures neg to date Status: Acute (5) COPD exacerbation: Problem details: -current smoker. on methyl prednisone (40 q 8 after loading dose) --> 40mg prednisone daily started 09/03 -nebs -pulmonary hygiene Status: Acute (6) Acute heart failure with preserved ejection fraction (HFpEF): Problem details: -Acute on Chronic, Diastolic; normal EF, class III currently -likely d/t longstanding HTN and acute infections -trop/ischemia workup neg thus far -diuresis; oxygen support - 09/03 - IV lasix converted to oral lasix, oral potassium -echo reviewed from 06/10, not reordered at this time; trop negative, BNP already trending down but presented with big jump from baseline -optimize ventilation - on HFO2 as of am of 09/02 - more comfortable with this and iv diuresis/martinez placement (d/c martinez 09/03) Echocardiogram MAY 2024 Final Impressions: 1. LVEF estimate 60-65%. Normal LV size and wall thickness. 2. Normal RV size and global function. 3. No significant valvular abnormalities. 4. Normal RAP estimate. 5. Mildly dilated ascending aorta [4.2 cm]. 6. No LV thrombus [contrast study]. Status: Acute (7) Hyponatremia: Problem details: -salt tabs started 09/04, fluid restriction. follow. Status: Acute (8) Acute hypokalemia: Problem details: replace/follow Status: Acute (9) History of cardiac arrest: Problem details: -years ago per Status: Acute (10) Tobacco abuse: Problem details: 1.5-2 ppd Has not been interested in quitting despite encouragement Status: Acute (11) MDD (major depressive disorder): Problem details: per EMR, History of depression and anxiety that is been poorly treated in the past. He is currently on 90 mg of Cymbalta daily. He has not wanted to do referral to psychology or see a psychiatrist. He also has not wanted to make any other changes to his medication. That has seemed to help a little but not very much. Continue duloxetine Status: Acute (12) CAD (coronary artery disease): Problem details: Continue ASA, antihypertensives, statin Status: Acute (13) Hypertension: Problem details: Continue home medications At home, checks his pulse and oxygen level regularly, desaturates into 80s with activity Status: Acute (14) Hyperlipidemia: Problem details: Continue statin Status: Acute Subjective Date Seen: 09/04/24 Interval history: Daily Progress Note - Hospital Medicine Day # 4 CC: Acute Influenza A, Strep pneumo pneumonia (CAP), CHF (acute diastolic HFpEF excerbation), chronic COPD acute illness 24 HOUR UPDATE: stable night. no new changes. remains on HFO2. Talking, asking about his . Pt continue on Hyflo at 35L,250% flow to maintain O2 between 86 and 92% and temperature of 36. Patient is pleasant, alert and oriented. Vitally stable. Patient voided about 480ml at 2000. Patient had adequate sleep. Notable Labs, Micro, Rads, Interventions: Vital signs are all reassuring. He remains afebrile. Hemodynamically stable. Pulse in the 70s. Blood pressure 133/89. Respiratory rate continues to be mildly tachypneic without overt respiratory distress. His pulse ox is ranging 89-90 on 35 L, 21% high-flow nasal cannula oxygen. His CBC was not checked this morning. It looked stable yesterday. He is mildly alkalotic this morning. His CO2 is at 35. Electrolyte show a depressed sodium and potassium. Otherwise no concerns. One-view chest x-ray this morning was reassuring. No focal pulmonary consolidation to indicate pneumonia, verses increased bilateral lower lung zone opacities seen on admission. Now granted he does not have a normal chest x-ray given his history of MAC and fibrosis. For more detailed assessment of this lungs is important for physicians to order a CTA if it will impact treatment. CTA that accompanied the above chest x-ray on admission revealed: Bilateral lower lobe patchy consolidation, likely representing pneumonia. left lower extremity U/S was done at admission - NEG Urine culture is pending, blood culture is pending but NTD. Sputum grew normal jessy. Objective: unkept, not septic appearing. Vitals: reviewed see above Lungs: improved aeration. Cardiac: S1S2. edema in the legs is much improved. Disposition/Potential discharge - will be here for 3-4 days; may need TCU at discharge Today I spent 50minutes seeing the patient, reviewing Expanse and EPIC notes/diagnostics, discussing the care plan with our care time that includes social work, PT/OT, pharmacy, RT, [place] [facility] and documenting my impressions and plan in the medical record. Exam Const: Vital Signs, click to edit/add: Vital Signs - 24 hr 09/03/24 09:49 09/03/24 11:48 09/03/24 13:00 Temperature Pulse Rate Pulse Rate [Pulse Oximeter] Respiratory Rate Blood Pressure [Le ft Arm] Blood Pressure [Ri ght Arm] Pulse Oximetry Oxygen Delivery Me thod Oxygen Flow Rate 35 Fraction of Inspir ed Oxygen 25 30 30 09/03/24 13:20 09/03/24 16:35 09/03/24 16:35 Temperature 98.1 F 97.9 F Pulse Rate Pulse Rate [Pulse Oximeter] 92 75 Respiratory Rate 20 22 Blood Pressure [Le ft Arm] 124/78 Blood Pressure [Ri ght Arm] 128/85 Pulse Oximetry 91 94 Oxygen Delivery Me thod High Flow Nasal Ca nnula Oxygen Flow Rate 35 Fraction of Inspir ed Oxygen 30 30 09/03/24 16:45 09/03/24 16:46 09/03/24 18:00 Temperature Pulse Rate 80 Pulse Rate [Pulse Oximeter] Respiratory Rate Blood Pressure [Le ft Arm] Blood Pressure [Ri ght Arm] Pulse Oximetry 94 Oxygen Delivery Me thod Oxygen Flow Rate Fraction of Inspir ed Oxygen 25 09/03/24 19:00 09/03/24 19:29 09/03/24 21:16 Temperature 98 F Pulse Rate Pulse Rate [Pulse Oximeter] 75 Respiratory Rate 22 Blood Pressure [Le ft Arm] Blood Pressure [Ri ght Arm] 130/89 Pulse Oximetry 89 Oxygen Delivery Me thod High Flow Nasal Ca nnula Oxygen Flow Rate 35 Fraction of Inspir ed Oxygen 25 25 25 09/03/24 23:00 09/03/24 23:00 09/03/24 23:00 Temperature 98 F Pulse Rate Pulse Rate [Pulse Oximeter] 82 82 Respiratory Rate 22 22 Blood Pressure [Le ft Arm] Blood Pressure [Ri ght Arm] 139/96 H Pulse Oximetry 89 89 Oxygen Delivery Me thod High Flow Nasal Ca nnula Oxygen Flow Rate 35 Fraction of Inspir ed Oxygen 25 09/03/24 23:00 09/04/24 00:00 09/04/24 02:00 Temperature Pulse Rate 80 Pulse Rate [Pulse Oximeter] Respiratory Rate Blood Pressure [Le ft Arm] Blood Pressure [Ri ght Arm] Pulse Oximetry Oxygen Delivery Me thod Oxygen Flow Rate Fraction of Inspir ed Oxygen 25 25 09/04/24 03:00 09/04/24 04:00 09/04/24 06:00 Temperature 98 F Pulse Rate Pulse Rate [Pulse Oximeter] 78 Respiratory Rate 22 Blood Pressure [Le ft Arm] Blood Pressure [Ri ght Arm] 133/89 Pulse Oximetry 90 Oxygen Delivery Me thod High Flow Nasal Ca nnula Oxygen Flow Rate 35 Fraction of Inspir ed Oxygen 25 25 25 Labs Labs: Laboratory Results - last 24 hr 09/04/24 05:47 VBG pH 7.520 H VBG pCO2 35 L VBG pO2 46.3 VBG HCO3 28
[2024-09-04 08:30] LABS: Chloride* 100 mmol/L (96-114); Potassium* 3.4 mmol/L (3.6-5.1); Sodium* 131 mmol/L (135-149)
[2024-09-04 08:33] LABS: Anion Gap 3 mEq/L (7-15); Blood Urea Nitrogen* 34 mg/dL (7-30); Calcium* 8.3 mg/dL (8.4-10.6); Carbon Dioxide* 28 mmol/L (20-32); Creatinine* 0.8 mg/dL (0.5-1.5); Estimated Glomerular Filt Rate 96 ml/min; Glucose* 117 mg/dL (60-115)
[2024-09-04] MEDS: ASPIRIN 81 MG TABLET EC PO (08:55)
[2024-09-04] MEDS: FUROSEMIDE 40 MG TABLET PO ×2 (08:55→14:50)
[2024-09-04] MEDS: guaiFENesin 600 MG TAB.ER.12H 1200 MG PO ×2 (08:55→20:35)
[2024-09-04] MEDS: predniSONE 20 MG TABLET 40 MG PO (08:56)
[2024-09-04] MEDS: OSELTAMIVIR PHOSPHATE 75 MG CAPSULE PO ×2 (08:56→20:35)
[2024-09-04] MEDS: POTASSIUM CHLORIDE 10 MEQ CAPSULE ER 20 MEQ PO ×3 (08:56→18:26)
[2024-09-04] MEDS: Budesonide-Formoterol 160-4.5 mcg/actuation HFA aerosol inhaler 2 EACH IH ×2 (08:56→20:35)
[2024-09-04] MEDS: SODIUM CHLORIDE 0.9 % (FLUSH) 10 ML SYRINGE 5 ML IVF ×2 (08:57→20:39)
[2024-09-04] MEDS: DULOXETINE 30 MG CAPSULE DR 90 MG PO (08:57)
--- NOTE | 2024-09-04 09:17 | RESP.RT ---
Patient sitting up in chair on HFNC, FiO2 25%, flow 30 Lpm, SaO2 87%. PEP done with patient SaO2 increased to 90-91%, good chest shake promoted good productive cough, patient swallowed secretions. BBS, patient diminished ll watkins, more so in both bases with fine crackles. Patient current 2 ppd smoker. Patient SaO2 base 85-87%, goal today to wean HFNC to NC. Patient too have NC when eating.
[2024-09-04] MEDS: cefTRIAXone 1 GM in 0.9 % SODIUM CHLORIDE Mini-bag 100 ML IVPB (14:48)
[2024-09-04] MEDS: SODIUM CHLORIDE 1 GM TABLET PO ×2 (14:49→18:26)
[2024-09-04] MEDS: AZITHROMYCIN 250 MG TABLET 500 MG PO (20:35)
[2024-09-05] VITALS (13 sets, daily range): BP systolic 133–158; BP diastolic 70–100; PULSE 80–97; RESP 24–26; TEMP 36.5–36.7; O2SAT 88–94
[2024-09-05 06:05] LABS: HCO3 VBG 31 mmol/L (21-28); PCO2 VBG 39 mmHG (40-50); PO2 VBG 60.7 mmHG (25-47); pH VBG 7.508 (7.32-7.43)
[2024-09-05 06:06] LABS: Basophils Absolute Auto 0.03 K/uL (0.00-0.30); Basophils Percent Auto 0.3 % (0.0-3.0); Hematocrit 49.2 % (37.0-53.0); Hemoglobin* 16.5 gm/dL (13.5-17.5); Immature Granulocytes Abs Auto 0.13 K/uL (0.00-0.30); Immature Granulocytes Pct Auto 1.2 %; Lymphocytes Percent Auto 9.6 % (20-44); Mean Corpuscular HGB Conc 34 gm/dL (32-36); Mean Corpuscular Hemoglobin 33 pg (26-34); Mean Corpuscular Volume 99 fL (80-100); Monocytes Percent Auto 12.3 % (0.0-11.0); Neutrophils Percent Auto 76.6 % (42.0-72.0); Platelet Count* 166 K/uL (140-440); RDW Coefficient of Variation % 13.5 % (11.5-15.5); Red Blood Count 4.97 m/uL (4.30-5.90)
[2024-09-05 06:18] LABS: Slide Review Reflex No
[2024-09-05 06:24] LABS: INR 1.13 (0.91-1.10); Prothrombin Time 15.3 Seconds
--- NOTE | 2024-09-05 06:24 | PC.NURSE ---
Shift note: Pt has been doing well. He has been on HyFlo throughout the night at 20L, 25% and 36C. O2 has been between 86 and 92. 2330, attempt to help pt use the BR was declined. Attempted at 0220, 0400, and 0630 but all refused. Pt is alert and oriented, A1, walker and GB.
[2024-09-05 06:51] LABS: Albumin* 3.2 g/dL (3.3-5.0); Chloride* 101 mmol/L (96-114); Potassium* 3.2 mmol/L (3.6-5.1); Sodium* 136 mmol/L (135-149)
[2024-09-05 06:54] LABS: Anion Gap 5 mEq/L (7-15); Blood Urea Nitrogen* 29 mg/dL (7-30); Carbon Dioxide* 30 mmol/L (20-32); Creatinine* 0.7 mg/dL (0.5-1.5); Estimated Glomerular Filt Rate 100 ml/min; Glucose* 95 mg/dL (60-115); Phosphorus* 3.1 mg/dL (2.5-4.5)
[2024-09-05 06:55] LABS: Calcium* 8.4 mg/dL (8.4-10.6)
[2024-09-05] MEDS: POTASSIUM BICARB 25 MEQ EFFERVESCENT TAB PO ×2 (09:43→11:07)
[2024-09-05] MEDS: IPRAT-ALBUT 0.5-2.5 MG/3 ML NEB 1 NEB IH ×3 (09:43→20:27)
[2024-09-05] MEDS: FUROSEMIDE 40 MG TABLET PO ×2 (09:44→15:02)
[2024-09-05] MEDS: guaiFENesin 600 MG TAB.ER.12H 1200 MG PO ×2 (09:44→20:29)
[2024-09-05] MEDS: OSELTAMIVIR PHOSPHATE 75 MG CAPSULE PO ×2 (09:44→20:30)
[2024-09-05] MEDS: SODIUM CHLORIDE 1 GM TABLET PO ×3 (09:44→18:03)
[2024-09-05] MEDS: DULOXETINE 30 MG CAPSULE DR 90 MG PO (09:45)
[2024-09-05] MEDS: POTASSIUM CHLORIDE 10 MEQ CAPSULE ER 20 MEQ PO ×3 (09:45→18:03)
[2024-09-05] MEDS: predniSONE 20 MG TABLET 40 MG PO (09:45)
[2024-09-05] MEDS: ASPIRIN 81 MG TABLET EC PO (09:57)
[2024-09-05] MEDS: Budesonide-Formoterol 160-4.5 mcg/actuation HFA aerosol inhaler 2 EACH IH ×2 (09:57→20:27)
[2024-09-05] MEDS: SODIUM CHLORIDE 0.9 % (FLUSH) 10 ML SYRINGE 5 ML IVF ×2 (09:57→20:31)
[2024-09-05] MEDS: cefTRIAXone 1 GM in 0.9 % SODIUM CHLORIDE Mini-bag 100 ML IVPB (15:02)
--- NOTE | 2024-09-05 16:55 | PM.IMPN1 ---
Progress Note: A&P Assessment and plan (1) Acute hypoxemic respiratory failure: Problem details: combination of FLU A, CAP (STREP PNEUMO), COPD, CHF -appreciate RT starting highflow and working with patient to achieve best ventilation/oxygenation possible. -(09/03) IV broad spectrum abx (cefepime, vanc, azithro) was changed to rocephin, oral azithromycin, IV to oral corticosteroids, IV to oral lasix, oral tamiflu continued -(09/04) d/w with RT - home oxygen is a significant risk. bearded man who smokes indoors 2 ppd who may/may not remove oxygen to smoke .... consider his target POX is likely 86-88% and relying on nebs and aerobika device at home may be the best option. - 09/05 discussed with respiratory therapy. Weaning down oxygen as goal is to get him off oxygen prior to discharge due to high risk of injury with home oxygen use; some improvement with oxygen needs today. Status: Acute (2) Sepsis: Problem details: RR>20, HR 120's at presentation. elevated lactate, INR>1.5 - improved. Now on high flow; martinez catheter d/c 09/03; broad spectrum abx (narrowed 09/03), tamiflu, steroids (IV to oral on 09/03), nebs, RT support. hx of cardiac arrest, hx of MAC pneumonia, hx of pulmonary fibrosis and current smoker - this continues to be high risk patient with significant comorbidities. Status: Resolved (3) Influenza A: Problem details: -tamiflu started; antibiotics for pna, steroids for COPD, diuresis for CHF ... -pt high risk - 09/05 Tamiflu day 4 of 5 Status: Acute (4) Community acquired bacterial pneumonia: Problem details: -bilateral. Vanc/Cefepime/Azithro - changing to Rocephin/Azithromycin; +urine strep pneumo antigen. -HFO2 -follow labs/clinical response -w/strep pneumo risk of bacteremia high - pending blood, urine, sputum cultures neg to date - 09/05 today is day 4 of antibiotic treatment, typical strep pneumonia antibiotic duration is 5-7 days. Patient has shown clinical improvement, will treat with antibiotics through time of discharge or 7 days, whichever is 1st Status: Acute (5) COPD exacerbation: Problem details: -current smoker. on methyl prednisone (40 q 8 after loading dose) --> 40mg prednisone daily started 09/03 -nebs -pulmonary hygiene Status: Acute (6) Acute heart failure with preserved ejection fraction (HFpEF): Problem details: -Acute on Chronic, Diastolic; normal EF, class III currently -likely d/t longstanding HTN and acute infections -trop/ischemia workup neg thus far -diuresis; oxygen support - 09/03 - IV lasix converted to oral lasix, oral potassium -echo reviewed from 06/10, not reordered at this time; trop negative, BNP already trending down but presented with big jump from baseline -optimize ventilation - on HFO2 as of am of 09/02 - more comfortable with this and iv diuresis/martinez placement (d/c martinez 09/03) weights 97 kg in August 2023 at wellness exam (epic) 94.9 kg in May 2024 (standing weight during hospitalization here) 98.1 kg standing weight 09/04/24 dry weight 97-98 kg? Echocardiogram MAY 2024 Final Impressions: 1. LVEF estimate 60-65%. Normal LV size and wall thickness. 2. Normal RV size and global function. 3. No significant valvular abnormalities. 4. Normal RAP estimate. 5. Mildly dilated ascending aorta [4.2 cm]. 6. No LV thrombus [contrast study]. - 09/05 wt 98.8 kg, Cr 0.7, stable, continue furosemide 40 mg po bid, restart home losartan Status: Acute (7) Hyponatremia: Problem details: -salt tabs started 09/04, fluid restriction. - 09/05 Na 136 today. Continue to monitor daily, continue salt tabs. Stopping HCTZ to use lasix for CHF instead. Status: Acute (8) Acute hypokalemia: Problem details: -continue to replace/follow Status: Acute (9) History of cardiac arrest: Problem details: -years ago per Status: Chronic (10) Tobacco abuse: Problem details: 1.5-2 ppd Has not been interested in quitting despite encouragement Status: Chronic (11) MDD (major depressive disorder): Problem details: per EMR, History of depression and anxiety that is been poorly treated in the past. He is currently on 90 mg of Cymbalta daily. He has not wanted to do referral to psychology or see a psychiatrist. He also has not wanted to make any other changes to his medication. That has seemed to help a little but not very much. Continue duloxetine Status: Chronic (12) CAD (coronary artery disease): Problem details: Continue ASA, antihypertensives, statin Status: Chronic (13) Hypertension: Problem details: Continue home medications (stopping HCTZ) At home, checks his pulse and oxygen level regularly, desaturates into 80s with activity Status: Chronic (14) Hyperlipidemia: Problem details: Continue statin Status: Chronic (15) Edema of left lower extremity: Problem details: - patient notes this has been going on for at least several weeks, possibly months, started 1 day while he was at the computer, no pain - ultrasound left lower extremity upon admission showed no DVT. Start low-dose nightly enoxaparin for DVT prophylaxis. Status: Acute Time Spent With Patient Total time spent: Today I spent 50minutes seeing the patient, reviewing [facility] and EPIC notes/diagnostics/medications/labs, discussing the care plan with our care team that includes social work, PT/OT, pharmacy, RT, nursing home and documenting my impressions and plan in the medical record. Subjective Time Seen by Provider: 13:27 Date Seen: 09/05/24 Interval history: Trevin is feeling a little better today. He was able to ambulate to the bathroom and back on his own, nursing noted that he is hypoxic with ambulation even on oxygen, but was able to recover while on oxygen. He was able to wean down to nasal cannula today. Exam Narrative: Exam Narrative: General: No acute distress. Awake, alert, oriented x3. No pallor. No jaundice. Oropharynx: Clear. Mucous membranes moist. Cardiovascular: Regular rate and rhythm. No murmurs, gallops, or rubs. Respiratory: Breath sounds distant, fine bibasilar crackles. Abdomen: Bowel sounds present. Soft, nondistended, nontender. Extremities: 2+ left lower extremity pitting edema, trace on right lower extremity. Const: Vital Signs, click to edit/add: Vital Signs - 24 hr 09/04/24 18:00 09/04/24 19:00 09/04/24 19:39 Temperature 98.4 F Pulse Rate Pulse Rate [Pulse Oximeter] 103 H Respiratory Rate 24 Blood Pressure [Le ft Arm] Blood Pressure [Ri ght Arm] 144/92 H Pulse Oximetry 86 L Oxygen Delivery Me thod High Flow Nasal Ca nnula Oxygen Flow Rate 20 Fraction of Inspir ed Oxygen 25 25 25 09/04/24 22:00 09/04/24 22:38 09/04/24 22:38 Temperature Pulse Rate Pulse Rate [Pulse Oximeter] 103 H Respiratory Rate 24 Blood Pressure [Le ft Arm] Blood Pressure [Ri ght Arm] Pulse Oximetry 86 L Oxygen Delivery Me thod Oxygen Flow Rate Fraction of Inspir ed Oxygen 25 09/04/24 22:38 09/04/24 22:55 09/05/24 00:00 Temperature 98.4 F Pulse Rate 101 H Pulse Rate [Pulse Oximeter] 98 Respiratory Rate 24 Blood Pressure [Le ft Arm] Blood Pressure [Ri ght Arm] 148/91 H Pulse Oximetry 86 L Oxygen Delivery Me thod High Flow Nasal Ca nnula Oxygen Flow Rate 20 Fraction of Inspir ed Oxygen 25 25 09/05/24 02:00 09/05/24 02:55 09/05/24 04:00 Temperature 98 F Pulse Rate Pulse Rate [Pulse Oximeter] 88 Respiratory Rate 24 Blood Pressure [Le ft Arm] Blood Pressure [Ri ght Arm] 140/77 H Pulse Oximetry 88 Oxygen Delivery Me thod High Flow Nasal Ca nnula Oxygen Flow Rate 20 Fraction of Inspir ed Oxygen 25 25 09/05/24 06:00 09/05/24 07:00 09/05/24 07:00 Temperature Pulse Rate 80 Pulse Rate [Pulse Oximeter] Respiratory Rate Blood Pressure [Le ft Arm] Blood Pressure [Ri ght Arm] Pulse Oximetry 92 Oxygen Delivery Me thod Oxygen Flow Rate Fraction of Inspir ed Oxygen 09/05/24 07:00 09/05/24 07:00 Temperature 97.7 F Pulse Rate Pulse Rate [Pulse Oximeter] 87 87 Respiratory Rate 26 H 26 H Blood Pressure [Le ft Arm] 158/70 H Blood Pressure [Ri ght Arm] Pulse Oximetry 92 Oxygen Delivery Me thod High Flow Nasal Ca nnula Oxygen Flow Rate 2 Fraction of Inspir ed Oxygen Labs Labs: Laboratory Results - last 24 hr 09/05/24 05:50 WBC 10.80 RBC 4.97 Hgb 16.5 Hct 49.2 MCV 99 MCH 33 MCHC 34 RDW Coeff of Yelena 13.5 Plt Count 166 Neut % (Auto) 76.6 H Lymph % (Auto) 9.6 L [place] % (Auto) 12.3 H Eos % (Auto) 0.0 Baso % (Auto) 0.3 Neut # (Auto) 8.30 H Lymph # (Auto) 1.00 [place] # (Auto) 1.30 H Eos # (Auto) 0.00 Baso # (Auto) 0.03 Abs Immat Gran (auto) 0.13 Imm/Tot Granulo (auto) 1.2 INR 1.13 H VBG pH 7.508 H VBG pCO2 39 L VBG pO2 60.7 H VBG HCO3 31 H Sodium 136 Potassium 3.2 L Chloride 101 Carbon Dioxide 30 Anion Gap 5 L BUN 29 Creatinine 0.7 Estimated Creat Clear 68.40 Estimated GFR 100 Glucose 95 Calcium 8.4 Phosphorus 3.1 Albumin 3.2 L
--- NOTE | 2024-09-05 18:38 | PC.NURSE ---
PATIENT TRANSITIONED TO NASAL CANNULA AT 2L THIS AM. O2 SATS 88-94%ON 2L AT REST. PATIENT UP TO BATHROOM WITH SBA. SOB WITH EXERTION AND O2 SATS DECREASE TO 80-84%2L WITH EXERTION. PATIENT ABLE TO RECOVER TO 90-92% WITHIN A MINUTE. PRODUCTIVE COUGH WITH SMALL AMOUNT OF SPUTUM. TOLERATING REGULAR DIET AND WAS ABLE TO HAVE A BM TODAY. OFFERED SENNA PRN BUT PATIENT DECLINED AT THIS TIME. DENIES PAIN. AFEBRILE.
[2024-09-05] MEDS: ROSUVASTATIN CALCIUM 10 MG TABLET 5 MG PO (20:28)
[2024-09-05] MEDS: ENOXAPARIN 40 MG/0.4 ML INJ SUBCUT (20:29)
[2024-09-05] MEDS: AZITHROMYCIN 250 MG TABLET 500 MG PO (20:30)
[2024-09-06 03:00] VITALS: BP 141/83; PULSE 76; RESP 24; TEMP 36.6; O2SAT 95
--- NOTE | 2024-09-06 06:33 | PC.NURSE ---
Shift note: Pt up to BR with SBA and doing well. He has been on 2L of oxygen throughout the shift. O2 maintained between 86 ans 91, desaturate with activities but quickly recovers. Vitally stable. Pt had adequate sleep.
[2024-09-06 06:34] LABS: HCO3 VBG 35 mmol/L (21-28); PCO2 VBG 51 mmHG (40-50); PO2 VBG 65.2 mmHG (25-47); pH VBG 7.439 (7.32-7.43)
[2024-09-06 07:04] LABS: Chloride* 100 mmol/L (96-114); Potassium* 3.7 mmol/L (3.6-5.1); Sodium* 139 mmol/L (135-149)
[2024-09-06 07:06] LABS: Creatinine* 0.8 mg/dL (0.5-1.5); Estimated Glomerular Filt Rate 96 ml/min
[2024-09-06 07:07] LABS: Anion Gap 5 mEq/L (7-15); Blood Urea Nitrogen* 28 mg/dL (7-30); Calcium* 8.6 mg/dL (8.4-10.6); Carbon Dioxide* 34 mmol/L (20-32); Glucose* 98 mg/dL (60-115)
[2024-09-06 07:52] VITALS: BP 164/107; PULSE 82; RESP 24; TEMP 36.1; O2SAT 93
[2024-09-06] MEDS: predniSONE 20 MG TABLET 40 MG PO (08:31)
[2024-09-06] MEDS: ASPIRIN 81 MG TABLET EC PO (08:31)
[2024-09-06] MEDS: SODIUM CHLORIDE 1 GM TABLET PO ×2 (08:31→12:52)
[2024-09-06] MEDS: FUROSEMIDE 40 MG TABLET PO (08:31)
[2024-09-06] MEDS: OSELTAMIVIR PHOSPHATE 75 MG CAPSULE PO ×2 (08:31→13:48)
[2024-09-06] MEDS: POTASSIUM CHLORIDE 10 MEQ CAPSULE ER 20 MEQ PO ×2 (08:32→12:51)
[2024-09-06] MEDS: METOPROLOL SUCCINATE (XL) 50 MG TAB PO (08:32)
[2024-09-06] MEDS: guaiFENesin 600 MG TAB.ER.12H 1200 MG PO (08:32)
[2024-09-06] MEDS: DULOXETINE 30 MG CAPSULE DR 90 MG PO (08:32)
[2024-09-06] MEDS: LOSARTAN POTASSIUM 50 MG TABLET PO (08:32)
[2024-09-06] MEDS: Budesonide-Formoterol 160-4.5 mcg/actuation HFA aerosol inhaler 2 EACH IH (08:33)
[2024-09-06 08:56] VITALS: PULSE 87
[2024-09-06] MEDS: SODIUM CHLORIDE 0.9 % (FLUSH) 10 ML SYRINGE 5 ML IVF (10:17)
[2024-09-06] MEDS: cefTRIAXone 1 GM in 0.9 % SODIUM CHLORIDE Mini-bag 100 ML IVPB (11:24)
--- NOTE | 2024-09-06 11:35 | PM.DS1 ---
DS: Providers Provider Date Seen: 09/06/24 Date of admission: 09/02/24 02:24 Primary care physician: Jt Wade MD Admitting Clinician: Yulia Hernandez MD Consults: 09/02/24 02:33 Consult to Nutrition [CONS] Routine Comment: Reason for consult:: Weight Loss Consult to Physical Therapy [CONS] Routine Comment: Reason(s) for PT Consult:: Balance Assessment Any Restrictions?:: No Restrictions Consult to Respiratory Therapy [CONS] Routine Comment: Reason(s) for RT Consult:: Pulm Disease Info 09/03/24 11:46 Consult to Occupational Therapy [CONS] Routine Comment: Reason(s) for OT Consult:: Evaluate and Treat Any Restrictions?:: No Restrictions Attending Physician on discharge: Miryam Reyes [facility], [facility] Date of Discharge: 09/06/24 DS: Diagnosis Discharge Diagnosis (1) Acute hypoxemic respiratory failure: Status: Resolved Problem details: -appreciate RT starting highflow and working with patient to achieve best ventilation/oxygenation possible. -(09/03) IV broad spectrum abx (cefepime, vanc, azithro) was changed to rocephin, oral azithromycin, IV to oral corticosteroids, IV to oral lasix, oral tamiflu continued -(09/04) d/w with RT - home oxygen is a significant risk. bearded man who smokes indoors 2 ppd who may/may not remove oxygen to smoke .... consider his target POX is likely 86-88% and relying on nebs and aerobika device at home may be the best option. - 09/05 discussed with respiratory therapy. Weaning down oxygen as goal is to get him off oxygen prior to discharge due to high risk of injury with home oxygen use; some improvement with oxygen needs today. Resolved prior to discharge. Combination of FLU A, CAP (STREP PNEUMO), COPD, CHF. Improved with antibiotics, diuresis, steroids, respiratory therapy. Patient reports normal home oxygen saturations are 80-90s rest and can drop into the 70s with strenuous activity. Able to recover with rest. Has been weaned from oxygen, will not require home oxygen, which would be a safety issue regardless given he and his continue to actively smoke. (2) Sepsis: Status: Resolved Problem details: RR>20, HR 120's at presentation. elevated lactate, INR>1.5 - improved. Now on high flow; martinez catheter d/c 09/03; broad spectrum abx (narrowed 09/03), tamiflu, steroids (IV to oral on 09/03), nebs, RT support. hx of cardiac arrest, hx of MAC pneumonia, hx of pulmonary fibrosis and current smoker - this continues to be high risk patient with significant comorbidities. UC negative. BC negative. Sputum culture growing + strep pneumo. Resolved prior to discharge with management as noted. (3) Influenza A: Status: Acute Problem details: -tamiflu started; antibiotics for pna, steroids for COPD, diuresis for CHF ... -pt high risk - 09/05 Tamiflu day 4 of 5 Patient completed 5 day course of oral Tamiflu prior to discharge. (4) Community acquired bacterial pneumonia: Status: Acute Problem details: -bilateral. Vanc/Cefepime/Azithro - changing to Rocephin/Azithromycin; +urine strep pneumo antigen. Sputum culture also + strep pneumo. -HFO2 -follow labs/clinical response -w/strep pneumo risk of bacteremia high - pending blood, urine, sputum cultures neg to date - 09/05 today is day 4 of antibiotic treatment, typical strep pneumonia antibiotic duration is 5-7 days. Patient has shown clinical improvement, will treat with antibiotics through time of discharge or 7 days, whichever is 1st Patient completed 5 day course IV/oral antibiotic therapy. Close outpatient follow-up with PCP. (5) COPD exacerbation: Status: Acute Problem details: -current smoker. on methyl prednisone (40 q 8 after loading dose) --> 40mg prednisone daily started 09/03 -nebs -pulmonary hygiene Patient is a current, active smoker, 2 ppd. Management with 5 day course steroids as well as nebs and pulmonary hygiene. Continue to use nebulizer at home. (6) Acute heart failure with preserved ejection fraction (HFpEF): Status: Acute Problem details: -Acute on Chronic, Diastolic; normal EF, class III currently -likely d/t longstanding HTN and acute infections -trop/ischemia workup neg thus far -diuresis; oxygen support - 09/03 - IV lasix converted to oral lasix, oral potassium -echo reviewed from 06/10, not reordered at this time; trop negative, BNP already trending down but presented with big jump from baseline -optimize ventilation - on HFO2 as of am of 09/02 - more comfortable with this and iv diuresis/martinez placement (d/c martinez 09/03) weights 97 kg in August 2023 at wellness exam (epic) 94.9 kg in May 2024 (standing weight during hospitalization here) 98.1 kg standing weight 09/04/24 dry weight 97-98 kg? Echocardiogram MAY 2024 Final Impressions: 1. LVEF estimate 60-65%. Normal LV size and wall thickness. 2. Normal RV size and global function. 3. No significant valvular abnormalities. 4. Normal RAP estimate. 5. Mildly dilated ascending aorta [4.2 cm]. 6. No LV thrombus [contrast study]. - 09/05 wt 98.8 kg, Cr 0.7, stable, continue furosemide 40 mg po bid. Patient is discharged home with furosemide 40 mg b.i.d. as well as potassium supplement b.i.d.. Daily weights encouraged. Discontinued home losartan-HCTZ. Instead has been prescribed losartan and Lasix. Close outpatient follow-up with PCP. (7) Hyponatremia: Status: Acute Problem details: -salt tabs started 09/04, fluid restriction. - 09/05 Na 136 today. Continue to monitor daily, continue salt tabs. Stopping HCTZ to use lasix for CHF instead. Sodium improved to 139 prior to discharge. HCTZ discontinued. (8) Acute hypokalemia: Status: Acute Problem details: -continue to replace/follow Resolved prior to discharge. Discharge home with potassium supplement given he is also taking Lasix. Outpatient follow-up with PCP. (9) History of cardiac arrest: Status: Chronic Problem details: -years ago per (10) Tobacco abuse: Status: Chronic Problem details: 2 ppd Has not been interested in quitting despite encouragement Not appropriate for home oxygen (11) MDD (major depressive disorder): Status: Chronic Problem details: per EMR, History of depression and anxiety that is been poorly treated in the past. He is currently on 90 mg of Cymbalta daily. He has not wanted to do referral to psychology or see a psychiatrist. He also has not wanted to make any other changes to his medication. That has seemed to help a little but not very much. Continue duloxetine (12) CAD (coronary artery disease): Status: Chronic Problem details: Continue ASA, antihypertensives, statin (13) Hypertension: Status: Chronic Problem details: Continue home medications (stopping HCTZ) At home, checks his pulse and oxygen level regularly, desaturates into 80s with activity, 70s with strenuous activity (14) Hyperlipidemia: Status: Chronic Problem details: Continue statin (15) Edema of left lower extremity: Status: Acute Problem details: - patient notes this has been going on for at least several weeks, possibly months, started 1 day while he was at the computer, no pain - ultrasound left lower extremity upon admission showed no DVT. Start low-dose nightly enoxaparin for DVT prophylaxis. DS: Summary Hospital Course Hospital Course: [age] year old male was admitted to critical care for management of sepsis and acute hypoxic respiratory failure. Course of care and details as noted above. Patient has completed 5 day course of oral antiviral and antibacterial therapy for influenza a and community-acquired pneumonia. Close outpatient follow-up with PCP. Remainder of chronic medical comorbidities were monitored and managed with home medications. Time spent discussing smoking cessation with patient: more than 10 minutes Status at Discharge Functional status at discharge: independent ambulation Overall status at discharge: patient is back to baseline Time Spent with Patient Time attestation: Total time spent providing and/or coordinating discharge services: Time spent: Greater than 30 minutes Exam Narrative: Exam Narrative: PHYSICAL EXAM General: Pleasant, conversant, NAD Cardiovascular: RRR Pulmonary: No dyspnea on room air at rest Neurological: Alert, answering questions appropriately Skin: Warm, dry. Const: Vital Signs, click to edit/add: Vital Signs - 24 hr 09/05/24 15:10 09/05/24 15:10 09/05/24 15:10 Temperature Pulse Rate 89 Pulse Rate [Pulse Oximeter] 89 Respiratory Rate 26 H Blood Pressure [Le ft Arm] Blood Pressure [Ri ght Arm] Pulse Oximetry 94 Oxygen Delivery Me thod Oxygen Flow Rate Fraction of Inspir ed Oxygen 09/05/24 15:10 09/05/24 19:00 09/05/24 23:00 Temperature 98.0 F 97.8 F Pulse Rate Pulse Rate [Pulse Oximeter] 89 88 Respiratory Rate 26 H 26 H Blood Pressure [Le ft Arm] 151/88 H Blood Pressure [Ri ght Arm] 156/100 H Pulse Oximetry 94 92 91 Oxygen Delivery Me thod Nasal Cannula Nasal Cannula Oxygen Flow Rate 2 2 Fraction of Inspir ed Oxygen 09/05/24 23:00 09/05/24 23:00 09/05/24 23:00 Temperature 97.8 F Pulse Rate 85 Pulse Rate [Pulse Oximeter] 87 87 Respiratory Rate 24 24 Blood Pressure [Le ft Arm] Blood Pressure [Ri ght Arm] 133/73 Pulse Oximetry 91 Oxygen Delivery Me thod Nasal Cannula Oxygen Flow Rate 2 Fraction of Inspir ed Oxygen 09/06/24 03:00 09/06/24 07:52 09/06/24 07:52 Temperature 97.9 F 96.9 F L Pulse Rate Pulse Rate [Pulse Oximeter] 76 82 Respiratory Rate 24 24 Blood Pressure [Le ft Arm] 164/107 H Blood Pressure [Ri ght Arm] 141/83 H Pulse Oximetry 95 93 93 Oxygen Delivery Me thod Nasal Cannula Room Air Oxygen Flow Rate 2 Fraction of Inspir ed Oxygen 09/06/24 08:56 Temperature Pulse Rate 87 Pulse Rate [Pulse Oximeter] Respiratory Rate Blood Pressure [Le ft Arm] Blood Pressure [Ri ght Arm] Pulse Oximetry Oxygen Delivery Me thod Oxygen Flow Rate Fraction of Inspir ed Oxygen DS: Data Data Completed and Pending Completed studies during hospitalization: Procedures Introduction of Other Gas into Respiratory Tract, Via Natural or Artificial Opening (05/25/24) Labs on day of discharge: Labs from last 24 hours 09/06/24 06:06 VBG pH 7.439 H VBG pCO2 51 H VBG pO2 65.2 H VBG HCO3 35 H Sodium 139 Potassium 3.7 Chloride 100 Carbon Dioxide 34 H Anion Gap 5 L BUN 28 Creatinine 0.8 Estimated Creat Clear 68.40 Estimated GFR 96 Glucose 98 Calcium 8.6 Preliminary micro results at discharge 09/01/24 18:50 Blood Culture - Preliminary Blood NO GROWTH AFTER 96 HOURS Imaging CXR 09/01: Attestation: I have reviewed the pertinent imaging results. Radiologist's impression: Lung Volumes: Adequate inspiration. Rightward deviation of the trachea is consistent with indirect evidence of volume loss involving the right lung. Lungs: Peripheral left basilar airspace opacity consistent with pneumonia. The previously documented cavitary lesion of the right lung apex is slightly smaller compared to 05/25/2024. Emphysematous changes noted at the periphery of this lesion on the frontal view of the chest as on the prior examination. Pleura and Pleural spaces: Chronic blunting of the right lateral costophrenic angle is consistent with pleural fibrosis. Pleural calcifications are demonstrated to better advantage on the prior CT of 05/26/2024. no pneumothorax. Mediastinum: Stable cardiomediastinal silhouette. Bony Thorax and Soft Tissues: No significant incidental findings. IMPRESSION: 1. Peripheral left basilar airspace opacity consistent with pneumonia. 2. The previously documented cavitary lesion of the right lung apex is slightly smaller compared to 05/25/2024. Emphysematous changes noted at the periphery of this lesion on the frontal view of the chest as on the prior examination. Please refer to the report of the chest CT examination dated 05/26/2024 for further description. CXR 09/04: Attestation: I have reviewed the pertinent imaging results. Radiologist's impression: The left lateral costophrenic angle is excluded from the field of view. Medical Devices: None. Lung Volumes: Adequate inspiration. No significant atelectasis. Lungs: No focal consolidation. Re-demonstration a right paramediastinal apical cavitary lesion. Please also refer to the chest CT report of 09/02/2024 for further description. Pleura and Pleural spaces: No significant pleural effusion. Chronic blunting of the right lateral costophrenic angle consistent with fibrosis. No pneumothorax. Mediastinum: Stable cardiomediastinal silhouette. Bony Thorax and Soft Tissues: No significant incidental findings. IMPRESSION: No focal pulmonary consolidation to indicate pneumonia. Incidental findings described in the body of the report. CXR 09/01 #2: Attestation: I have reviewed the pertinent imaging results. Radiologist's impression: Cardiovascular and mediastinum: Stable cardiomediastinal silhouette. Lungs and pleural spaces: Right apical cavitary lesion, unchanged. Increased bilateral lower lung zone patchy opacities. No large pleural effusions. No pneumothorax. Bones and soft tissues: Unchanged. IMPRESSION: Increased bilateral lower lung zone airspace disease. CTA CHEST: Attestation: I have reviewed the pertinent imaging results. Radiologist's impression: Heart and vasculature: Contrast opacification of the pulmonary arterial tree is adequate. No sign of pulmonary embolism. Heart size is normal. Pericardial calcifications, unchanged. Thoracic aorta is normal in caliber. Stable enlarged main pulmonary artery, suggestive of underlying pulmonary arterial hypertension. Coronary artery calcifications and/or stents. Lungs and pleura: Diffuse bronchial wall thickening. Moderate emphysema. Decreased size of the right apical peripherally calcified thick-walled cavitary lesion measuring 9.6 x 3.9 cm, previously 10.5 x 4.5 cm. Patchy consolidation in the bilateral lower lobes. Scattered calcified granulomas. Chronic calcified right pleural collection/thickening. Lymph nodes/mediastinum: No mediastinal, hilar, or axillary adenopathy. Calcified mediastinal and hilar lymph nodes, likely sequela of healed granulomatous disease. Stable thyroid gland. Chest wall: No masses. Upper abdomen: Scattered retroperitoneal para-aortic surgical clips. Partially visualized infrarenal abdominal aortic aneurysm. Bones: Unremarkable for age. IMPRESSION: 1. No evidence of pulmonary embolism. 2. Bilateral lower lobe patchy consolidation, likely representing pneumonia. 3. Decreased size of the right apical peripherally calcified thick-walled cavitary lesion. Other findings related to history of known MAC, similar to prior. Echo: Attestation: I have reviewed the pertinent imaging results. Radiologist's impression: Sonographic imaging demonstrates the left common femoral, deep femoral, superficial femoral, popliteal, posterior tibial and greater saphenous and the contralateral right common femoral veins to be fully compressible with normal color Doppler blood flow. IMPRESSION: Normal left lower extremity venous ultrasound, no sign of deep venous thrombosis. Discharge Plan Discharge Disposition: Home, Self-Care Date of Admission: 09/02/24 02:24 Attending Provider on Discharge: Miryam Reyes Primary Care Provider: Jt Wade Condition: Improved Anticipated Discharge Date/Time: 09/06/24 11:26 Discharge Medications: New furosemide 40 mg Tablet 40 mg PO BID@0800,1400 Qty: 60 0RF potassium chloride 10 mEq Capsule, Extended Release 20 meq PO BIDWM Qty: 120 0RF losartan 50 mg Tablet 50 mg PO DAILY Qty: 30 0RF Continued metoprolol succinate 50 mg tablet extended release 24 hr 50 mg PO DAILY rosuvastatin 5 mg tablet 5 mg PO DAILY duloxetine 30 mg capsule,delayed release(DR/EC) 30 mg PO DAILY duloxetine 60 mg capsule,delayed release(DR/EC) 60 mg PO DAILY budesonide-formoterol 160-4.5 mcg/actuation HFA aerosol inhaler 2 puff inhalation BID aspirin 81 mg tablet,delayed release (DR/EC) 81 mg PO DAILY multivitamin [Daily Multi-Vitamin] Tablet 1 tab PO DAILY psyllium Powder 1 tbsp PO DAILY Rx Instructions: mix into at least 8 oz of water or juice before administering sumatriptan succinate [Imitrex] 100 mg tablet See Rx Instructions .ROUTE .COMPLEX Rx Instructions: take 1 tab at onset of headache; if no relief, may repeat 1 tab after at least 2 hrs; max = 2 tabs/24 hrs (DME) nebulizer and compressor Device See Rx Instructions .Route Qty: 1 0RF Rx Instructions: q4 hours as needed. Use whatever brand and set up is covered and/or available. ipratropium-albuterol 0.5 mg-3 mg(2.5 mg base)/3 mL solution for nebulization 3 ml inhalation Q4H PRNQty: 180 0RF Discontinued losartan-hydrochlorothiazide 50-12.5 mg tablet 1 tab PO DAILY Discharge Orders: Discharge Order (Routine); Ordered 09/06/24 Ordered By: Miryam Reyes Patient Education: Heart Failure (GEN), Influenza (GEN), Bacterial Pneumonia (GEN) Additional Instructions: Stop taking your LOSARTAN-HCTZ. Instead, take LOSARTAN. You have also been prescribed LASIX and a POTASSIUM supplement. Continue to use your nebulizers. Activity Level: Activity as Tolerated Discharge Diet: Regular Follow Up Appointments: Jt Wade MD [Primary Care Provider] - (Post hospital follow-up 3-5 days) Forms: [employer] Info Instructions
[2024-09-06 11:44] VITALS: BP 134/98; PULSE 84; RESP 20; TEMP 37.1; O2SAT 89
== END 2024-09-06 13:58 | disposition home or self-care (01) | DRG 871 ==
LOC: ED 09-02 00:34 → MEDSURG 09-02 01:26
PROVIDERS: Family Medicine; Admitting Provider Student in an Organized Health Care Education/Training Program; Emergency Provider Emergency Medicine; PCP Surgery; Visit Provider Family Medicine
DX: A40.3 Sepsis due to Streptococcus pneumoniae (principal); I50.33 Acute on chronic diastolic (congestive) heart failure; J10.08 Influenza due to other identified influenza virus with other specified pneumonia; J13 Pneumonia due to Streptococcus pneumoniae; J96.01 Acute respiratory failure with hypoxia; J44.1 Chronic obstructive pulmonary disease with (acute) exacerbation; J44.0 Chronic obstructive pulmonary disease with (acute) lower respiratory infection; F33.9 Major depressive disorder, recurrent, unspecified; I48.91 Unspecified atrial fibrillation; E86.0 Dehydration; I11.0 Hypertensive heart disease with heart failure; G47.33 Obstructive sleep apnea (adult) (pediatric); F17.210 Nicotine dependence, cigarettes, uncomplicated; I25.10 Atherosclerotic heart disease of native coronary artery without angina pectoris; Z86.74 Personal history of sudden cardiac arrest; E78.5 Hyperlipidemia, unspecified
CPT/HCPCS: 36415; 51701; 51798; 71045; 71046; 71275; 80048; 80053; 80069; 80076; 81001; 82803; 83605; 83735; 83880; 84145; 84443; 84484; 85025; 85610; 86140; 87040; 87070; 87086; 87449; 87631; 87899; 93005; 93971; 94640; 94664; 94761; 97110; 97116; 97162; 97166; 97530; 97535; 99285; 99291; A9270; J0456; J0692; J0696; J1650; J1940; J2919; J3372; J3480; J7030; J7050; J7120; J7512; Q9967